=== PATIENT | female | born 1940 | race Caucasian/White ===

== ENCOUNTER 2022-06-20 21:35 | Outpatient (CLI) | payer MEDICARE, BC, SELFPAY | END 2022-06-20 21:36 | disposition home or self-care (01) | LOC: AMB 06-22 08:07 | PROVIDERS: PCP Family Medicine; Visit Provider Family Medicine | DX: R53.1 Weakness (principal); R19.7 Diarrhea, unspecified | CPT/HCPCS: A0425; A0427 ==

== ENCOUNTER 2022-06-20 22:18 | Emergency (ER) | payer MEDICARE, BC, SELFPAY ==
[2022-06-20 22:24] VITALS: BP 146/89; PULSE 91; RESP 20; TEMP 36.9; O2SAT 97; BMI 26.6
--- NOTE | 2022-06-20 23:05 | ED.GENADULT ---
HPI - General Adult General Time Seen by Provider: 23:05 Date Seen: 06/20/22 Chief complaint: Nausea/Vomiting Stated complaint: Nausea/vomiting's Time Seen by Provider: 06/20/22 22:54 Source: patient and family Mode of arrival: ambulatory Limitations: no limitations History of Present Illness HPI narrative: 82-year-old female who comes in today with her son for weakness. Patient notes tonight she tried to get out of her chair, legs felt weak and gave out on her. She was unable to get up off the floor. She had some vomiting and diarrhea this evening as well. [place] fine during the course the day, went to the grocery store and also cutter shingles shot. She denies headache or head injury, no chest pain or shortness of breath, no abdominal pain, no urinary symptoms. No numbness or tingling in the arms or legs. Related Data Home Medications Medication Instructions Recorded Confirmed clopidogrel 75 mg tablet mg 06/20/22 glipizide 5 mg tablet mg 06/20/22 metformin 1,000 mg tablet 500 mg PO BID 06/20/22 06/20/22 metoprolol succinate 25 mg mg PO 06/20/22 tablet,extended release 24 hr Allergies Allergy/AdvReac Type Severity Reaction Status Date / Time No Known Drug Allergies Allergy Verified 06/21/22 02:25 Review of Systems Status of ROS: Reports: 10 or more systems reviewed and unremarkable except as noted in History and below PFS PFS Social History Smoking Status: Former smoker How often do you have a drink containing alcohol: never AUDIT-C Alcohol total score: 0 Non-prescribed substance use: denies use Exam Narrative: Exam Narrative: General: Well-developed and well-nourished, no acute distress Head: Atraumatic and normocephalic Eyes: Pupils are equal reactive, extraocular motions intact, conjunctiva clear ENT: External nose and ears are normal, posterior pharynx without erythema or exudate Neck: No midline cervical tenderness, full spontaneous range of motion the neck, trachea midline, no adenopathy Heart: Regular rate and rhythm, for 6 systolic murmur Lungs: Clear to auscultation bilaterally without wheezes or crackles Abdomen: Soft, nontender, nondistended with active bowel sounds Musculoskeletal: No tenderness, deformity, or edema Neurologic: Awake, alert, and oriented x3, no gross focal neurologic deficits, cranial nerves intact as tested Psych: Mood and affect are appropriate Skin: No rashes Const: Vital Signs, click to edit/add: Vital Signs - 24 hr 06/20/22 22:24 06/20/22 23:31 06/21/22 01:20 Temperature 98.4 F Pulse Rate [Bilate ral] 91 82 Respiratory Rate 20 20 20 Blood Pressure [Ri ght Upper Arm] 146/89 H 142/58 H Pulse Oximetry 97 97 96 Oxygen Delivery Me thod Room Air Room Air Room Air Course Course Hospital Course: Patient seen and examined, prior records are reviewed. Patient presents today with generalized weakness associated with vomiting and diarrhea. On exam here, vital is stable. No abdominal tenderness and patient denies abdominal pain. No hypotension or tachycardia, patient denies blood in the stools or emesis. Labs ordered along with fluid bolus. If labs are reassuring and patient is able to tolerate oral intake, can be discharged Reevaluation(s) Reevaluation #1: Labs independently interpreted by me demonstrate leukocytosis with mild anemia. CT of the abdomen and pelvis ordered due to leukocytosis, diarrhea, vomiting. Time: 23:41 Reevaluation #2: Labs independently interpreted by me demonstrate normal basic panel other than hyperglycemia, urinalysis with some red cells and some white cells, contaminated with moderate epithelial cells. At this point will defer treatment until cultures are done. Time: 01:11 Reevaluation #3: CT scan independently interpreted by me does not demonstrate any acute findings. Patient is requesting to be admitted to the hospital as her carpet at home is a mess because of her gastrointestinal illness. We discussed her normal laboratory findings of an elevated white blood cell count, stable vital signs. Patient has been up to the bathroom multiple times and is steady ambulating. No indications for admission at this time and did discuss this with the patient, she is agreeable to go home with her son. Time: 02:52 Vital Signs Vital signs: Initial Vital Signs Temperature 98.4 F 06/20/22 22:24 Temperature Source Oral 06/20/22 22:24 Pulse Rate 91 06/20/22 22:24 Pulse Rhythm 06/20/22 22:24 Respiratory Rate 20 06/20/22 22:24 Blood Pressure 146/89 H 06/20/22 22:24 Blood Pressure Mean 108 06/20/22 22:24 Pulse Oximetry 97 06/20/22 22:24 Oxygen Delivery Method 06/20/22 22:24 Vital Signs Temperature 98.4 F 06/20/22 22:24 Pulse Rate 91 06/20/22 22:24 Respiratory Rate 20 06/20/22 22:24 Blood Pressure 146/89 H 06/20/22 22:24 Pulse Oximetry 97 06/20/22 22:24 Oxygen Delivery Method 06/20/22 22:24 Temperature 98.4 F 06/20/22 22:24 Pulse Rate 82 06/21/22 01:20 Respiratory Rate 20 06/21/22 01:20 Blood Pressure 142/58 H 06/21/22 01:20 Pulse Oximetry 96 06/21/22 01:20 Oxygen Delivery Method 06/21/22 01:20 Medical Decision Making Medical Records Medical records reviewed: Yes I reviewed the patient's medical records Lab Data Lab results reviewed: Yes I reviewed the patient's lab results Labs: Lab Results 06/20/22 06/20/22 06/20/22 Range/Units 23:11 23:20 23:20 WBC 16.21 H (4.50-11.00) K/uL RBC 2.77 L (4.00-5.20) m/uL Hgb 10.9 L (12.0-16.0) gm/dL Hct 31.8 L (33.0-51.0) % MCV 115 H (80-100) fL MCH 39 H (26-34) pg MCHC 34 (32-36) gm/dL RDW Coeff of Bossman 14.5 (11.5-15.5) % Plt Count 188 (140-440) K/uL Neut % (Auto) 90.5 H (42.0-72.0) % Lymph % (Auto) 3.5 L (20-44) % [place] % (Auto) 5.1 (0.0-11.0) % Eos % (Auto) 0.1 (0.0-7.0) % Baso % (Auto) 0.2 (0.0-3.0) % Neut # (Auto) 14.70 H (1.7-7.0) K/uL Lymph # (Auto) 0.60 L (0.90-2.90) K/uL [place] # (Auto) 0.80 (0.00-0.90) K/UL Eos # (Auto) 0.00 (0.00-0.50) K/uL Baso # (Auto) 0.00 (0.00-0.30) K/uL Sodium Cancelled Potassium Cancelled Chloride Cancelled Carbon Dioxide Cancelled BUN Cancelled Creatinine Cancelled Estimated Creat Clear Cancelled Estimated GFR Cancelled Glucose Cancelled Calcium Cancelled Magnesium Cancelled Urine Color Yellow (Yellow) Urine Appearance Slightly Cloudy A (Clear) Urine pH 5.0 (5.0-8.5) Ur Specific [place] 1.020 (1.000-1.030) Urine Protein 2+ A (Negative) Urine Glucose (UA) Trace A (Negative) Urine Ketones 1+ A (Negative) Urine Blood 2+ A (Negative) Urine Nitrite Negative (Negative) Urine Bilirubin Negative (Negative) Urine Urobilinogen 0.2 (0.2-1.0) Ur Leukocyte Esterase 1+ A (Negative) Urine RBC 25-50 A (0-2) Urine WBC 10-25 A (0-5) Ur Squamous Epith Cells Moderate A (None-Few) Urine Bacteria Many A (None) 06/21/22 Range/Units 00:18 WBC (4.50-11.00) K/uL RBC (4.00-5.20) m/uL Hgb (12.0-16.0) gm/dL Hct (33.0-51.0) % MCV (80-100) fL MCH (26-34) pg MCHC (32-36) gm/dL RDW Coeff of Bossman (11.5-15.5) % Plt Count (140-440) K/uL Neut % (Auto) (42.0-72.0) % Lymph % (Auto) (20-44) % [place] % (Auto) (0.0-11.0) % Eos % (Auto) (0.0-7.0) % Baso % (Auto) (0.0-3.0) % Neut # (Auto) (1.7-7.0) K/uL Lymph # (Auto) (0.90-2.90) K/uL [place] # (Auto) (0.00-0.90) K/UL Eos # (Auto) (0.00-0.50) K/uL Baso # (Auto) (0.00-0.30) K/uL Sodium 136 Potassium 4.0 Chloride 103 Carbon Dioxide 23 BUN 22 Creatinine 1.1 Estimated Creat Clear 32.62 Estimated GFR 50 Glucose 208 H Calcium 9.2 Magnesium 1.6 Urine Color (Yellow) Urine Appearance (Clear) Urine pH (5.0-8.5) Ur Specific [place] (1.000-1.030) Urine Protein (Negative) Urine Glucose (UA) (Negative) Urine Ketones (Negative) Urine Blood (Negative) Urine Nitrite (Negative) Urine Bilirubin (Negative) Urine Urobilinogen (0.2-1.0) Ur Leukocyte Esterase (Negative) Urine RBC (0-2) Urine WBC (0-5) Ur Squamous Epith Cells (None-Few) Urine Bacteria (None) Discharge Plan Discharge Clinical Impression: Acute cystitis, Gastroenteritis Patient Disposition: Home w/ Parent or Adult Condition: Improved Instructions: Urinary Tract Infection in Women (DC), Acute Nausea and Vomiting (ED), Acute Diarrhea (ED) Additional Instructions: Start antibiotics this evening. Take Zofran as needed for nausea vomiting. Start with a liquid diet today and advance as tolerated Activity Level: Activity as Tolerated Discharge Diet: Full Liquid Prescriptions: No Action clopidogrel 75 mg tablet metoprolol succinate 25 mg tablet extended release 24 hr PO glipizide 5 mg tablet metformin 1,000 mg tablet 500 mg PO BID Follow Up/Referrals: Radha Calderon DO [Primary Care Provider] - Stand Alone Forms: [employer] Info Instructions
[2022-06-20] MEDS: 0.9 % SODIUM CHLORIDE 500 ML 500 ML IV (23:17)
[2022-06-20 23:31] VITALS: RESP 20; O2SAT 97
[2022-06-20 23:31] LABS: Basophils Percent Auto 0.2 % (0.0-3.0); Eosinophils Percent Auto 0.1 % (0.0-7.0); Hematocrit 31.8 % (33.0-51.0); Hemoglobin* 10.9 gm/dL (12.0-16.0); Immature Granulocytes Pct Auto 0.6 %; Lymphocytes Percent Auto 3.5 % (20-44); Mean Corpuscular HGB Conc 34 gm/dL (32-36); Mean Corpuscular Hemoglobin 39 pg (26-34); Mean Corpuscular Volume 115 fL (80-100); Monocytes Percent Auto 5.1 % (0.0-11.0); Neutrophils Percent Auto 90.5 % (42.0-72.0); Platelet Count* 188 K/uL (140-440); RDW Coefficient of Variation % 14.5 % (11.5-15.5); Red Blood Count 2.77 m/uL (4.00-5.20); White Blood Count* 16.21 K/uL (4.50-11.00)
[2022-06-20 23:33] LABS: Slide Review Reflex No
--- NOTE | 2022-06-20 23:41 | CRLHL7_ITS ---
For Patients: As a result of the Century Cures Act, medical imaging exams and procedure reports are released immediately into your electronic medical record. You may view this report before your referring provider. If you have questions, please contact your health care provider. INDICATION: Diarrhea, abdominal pain, leukocytosis TECHNIQUE: CT Abdomen and pelvis with i.v. contrast. Coronal and sagittal reformats were obtained. CONTRAST: 74 mL Isovue 370 COMPARISON: None FINDINGS: Lower chest: Unremarkable. Liver: Unremarkable. Spleen: Unremarkable. Pancreas: Unremarkable. Gallbladder: Unremarkable. Kidney: Unremarkable. No kidney or ureteral stones or obstruction seen. Adrenal: Unremarkable. Bowel: The stomach is decompressed and difficult to evaluate. The appendix is not identified. Vascular: Severe diffuse atherosclerotic calcifications of the abdominal aorta and its tributaries are present. Lymph: Unremarkable. Peritoneum: Unremarkable. No pneumoperitoneum is seen. No significant ascites is noted. Pelvis: The patient is status post hysterectomy. Moderate bladder distention is noted. Soft tissue: Unremarkable. Bone: Moderate levoscoliosis is noted with associated facet arthritis and degenerative disc disease. IMPRESSION: 1. No CT correlate for the patient`s symptoms seen. Dictated by Zak Hitchcock MD @ 06/21/2022 3:00:51 AM Please note that all CT scans at this facility use dose modulation, iterative reconstruction, and/or weight-based dosing when appropriate to reduce radiation dose to as low as reasonably achievable. Dictated by: Zak Hitchcock MD @ 06/21/2022 03:00:56 (Electronically Signed)
[2022-06-20 23:45] LABS: Appearance Urine Slightly Cloudy (Clear); Bilirubin Urine Negative (Negative); Blood Urine 2+ (Negative); Color Urine Yellow (Yellow); Glucose Urine Trace (Negative); Ketones Urine 1+ (Negative); Leukocyte Esterase Urine 1+ (Negative); Nitrite Urine Negative (Negative); Protein Urine 2+ (Negative); Urobilinogen Urine 0.2 (0.2-1.0)
[2022-06-20 23:59] LABS: RBC Urine 25-50 (0-2)
[2022-06-21] LABS: Bacteria Urine Many; Squamous Epithelial Cell Urine Moderate (None-Few)
[2022-06-21 00:56] LABS: Chloride* 103 mmol/L (96-114)
[2022-06-21 00:57] LABS: Sodium* 136 mmol/L (135-149)
[2022-06-21 00:59] LABS: Creatinine* 1.1 mg/dL (0.5-1.5); Est. Creatinine Clearance* 32.62; Estimated Glomerular Filt Rate 50 ml/min
[2022-06-21 01:00] LABS: Blood Urea Nitrogen* 22 mg/dL (7-30); Calcium* 9.2 mg/dL (8.4-10.6); Carbon Dioxide* 23 mmol/L (20-32); Glucose* 208 mg/dL (60-115); Magnesium* 1.6 mg/dL (1.5-2.6)
[2022-06-21 01:20] VITALS: BP 142/58; PULSE 82; RESP 20; O2SAT 96
[2022-06-21] MEDS: cefTRIAXone 1 GM in 0.9 % SODIUM CHLORIDE Mini-bag 100 ML IVPB (03:37)
--- NOTE | 2022-06-21 04:00 | ED.NURSE ---
pt used commode in room. no reports of being dizzy. pt helped to and from bed with little help.
[2022-06-21 04:42] VITALS: BP 147/60; PULSE 84; RESP 18; O2SAT 96
--- NOTE | 2022-06-21 04:43 | ED.NURSE ---
pt given DC instructions, IVs removed, caths intact. Son with pt to help with instymeds.
== END 2022-06-21 04:44 | disposition home or self-care (01) ==
PROVIDERS: Emergency Provider Family Medicine; PCP Family Medicine
DX: N30.00 Acute cystitis without hematuria (principal); K52.9 Noninfective gastroenteritis and colitis, unspecified
CPT/HCPCS: 36415; 74177; 80048; 81001; 83735; 85025; 87086; 87186; 96365; 99284; J0696; J7120; Q9967

== ENCOUNTER 2022-07-09 03:39 | Outpatient (CLI) | payer MEDICARE, BC, SELFPAY | END 2022-07-09 03:40 | disposition home or self-care (01) | LOC: AMB 07-13 10:14 | PROVIDERS: PCP Family Medicine; Visit Provider Family Medicine | DX: R53.1 Weakness (principal) | CPT/HCPCS: A0998 ==

== ENCOUNTER 2022-09-02 16:04 | Outpatient (CLI) | payer MEDICARE, BC, SELFPAY | END 2022-09-02 16:05 | disposition home or self-care (01) | PROVIDERS: PCP Family Medicine; Visit Provider Family Medicine | DX: Z00.00 Encounter for general adult medical examination without abnormal findings (principal); I10 Essential (primary) hypertension; E78.5 Hyperlipidemia, unspecified; I25.10 Atherosclerotic heart disease of native coronary artery without angina pectoris; E11.40 Type 2 diabetes mellitus with diabetic neuropathy, unspecified; Z13.21 Encounter for screening for nutritional disorder; I73.9 Peripheral vascular disease, unspecified | CPT/HCPCS: 80053; 80061; 82043; 82570; 82607 ==

== ENCOUNTER 2023-01-19 15:53 | Outpatient (CLI) | payer MEDICARE, BC, SELFPAY ==
--- NOTE | 2023-01-19 16:00 | CRLHL7_ITS ---
For Patients: As a result of the Century Cures Act, medical imaging exams and procedure reports are released immediately into your electronic medical record. You may view this report before your referring provider. If you have questions, please contact your health care provider. INDICATION: left leg pain/swelling. f/u possible chronic clot distal FV COMPARISON: 09/21/2022 TECHNIQUE: A compression venous ultrasound exam was performed of the left lower extremity using jimenez-scale imaging, color Doppler and spectral Doppler analysis. FINDINGS: Sonographic imaging of the left lower extremity demonstrates normal compressibility and color Doppler venous blood flow within the common femoral vein and deep femoral vein. Within the thigh, the femoral vein is patent and compressible. At a lower level, the popliteal and posterior tibial veins also show normal compressibility and color Doppler venous blood flow. Atherosclerotic disease is present. IMPRESSION: No evidence of deep vein thrombosis within the left lower extremity. Interval clearing of nonocclusive thrombus from the distal femoral vein compared to the prior study. Dictated by Nestor Reyna MD @ 01/20/2023 9:23:38 AM (Electronically Signed)
--- OUTSIDE RECORDS SUMMARY | 2023-01-19 16:01 | XMS_ITS | Continuity of Care Document ---
Author Name Unknown Organization [facility] Address [address] [place] [address] Phone Care Team Providers Care Blanket Winder Helper Name Role Phone Essie LARIOS MD, Diogenes lima Advance Directives Directive Yes / No Effective Date File Name No Information Encounters Encounter Description Practice Location Reason(s) For Visit Diagnoses Date Provider Providers Copied on Encounter Z [facility], [address], [place], [address], [place] tel:[phone] [facility] No Information Jul-2 7200 8 Essie Shetty. [facility], [address] [place] [address], [id number], [place]. tel:[phone] Family History Family Member Type Diagnosis Age At Onset No Information Payers Payer name Insurance type Covered constitution party ID Authoriza tion(s) No Information Social History Type Description Quantity Date Captured Comments Sex Female Smoking Status No Information Chief Complaint And Reason For Visit No Information Reason For Referral Reason For Referral No Information History Of Present Illness Encounter Date Complaint History Of Prese nt Illness No Information Functional Status Date Functional Assessmen t No Information Instructions Date Instruction Additional Infor mation No Information Assessments Type Assessment Date No Information Patient Care Teams Name Effective Dates (start - stop) Status Members No Information
== END 2023-01-19 15:54 | disposition home or self-care (01) ==
LOC: US 15:59
PROVIDERS: PCP Internal Medicine; Visit Provider Internal Medicine
DX: R22.42 Localized swelling, mass and lump, left lower limb (principal); R60.9 Edema, unspecified
CPT/HCPCS: 93971

== ENCOUNTER 2023-03-14 07:15 | Outpatient (CLI) | payer MEDICARE, BC, SELFPAY ==
--- OUTSIDE RECORDS SUMMARY | 2023-03-18 17:28 | XMS_ITS | Continuity of Care Document ---
Author Name Unknown Organization Z [facility] Address [address] [place] [address] Phone Care Team Providers Care Director Law Enforcement Name Role Phone Essie LARIOS MD, Diogenes lima Advance Directives Directive Yes / No Effective Date File Name No Information Encounters Encounter Description Practice Location Reason(s) For Visit Diagnoses Date Provider Providers Copied on Encounter Z [facility], [address], [place], [address], [place] tel:[phone] [facility] No Information Jul-2 7200 8 Essie Shetty. [facility], [address] [place] [address], [id number], [place]. tel:[phone] Family History Family Member Type Diagnosis Age At Onset No Information Payers Payer name Insurance type Covered green party ID Authoriza tion(s) No Information Social [...]
== END 2023-03-14 07:16 | disposition home or self-care (01) ==
LOC: AMB 03-18 17:26
PROVIDERS: PCP Internal Medicine; Visit Provider Family Medicine
DX: R53.1 Weakness (principal)
CPT/HCPCS: A0998

== ENCOUNTER 2023-05-12 13:38 | Outpatient (CLI) | payer MEDICARE, BC, SELFPAY ==
--- OUTSIDE RECORDS SUMMARY | 2023-05-18 10:18 | XMS_ITS | Continuity of Care Document ---
Author Name Unknown Organization Z [facility] Address [address] [place] [address] Phone Care Team Providers Care Brass Chaser Name Role Phone Essie LARIOS MD, Diogenes lima Advance Directives Directive Yes / No Effective Date File Name No Information Encounters Encounter Description Practice Location Reason(s) For Visit Diagnoses Date Provider Providers Copied on Encounter Z [facility], [address], [place], [address], [place] tel:[phone] [facility] No Information Jul-2 7200 8 Essie Shetty. [facility], [address] [place] [address], [id number], [place]. tel:[phone] Family History Family Member Type Diagnosis Age [...]
--- OUTSIDE RECORDS SUMMARY | 2023-05-18 10:18 | XMS_ITS | Clinical Summary ---
Author Name Unknown Organization [facility] Address [place], [place] [address] Care Team Providers Care Solderer Assembly Repair Name Role Phone Radha Calderon DO Primary Care Provider [phone] Allergies Active Allergy Reactions Criticality Noted Date Comments Amoxicillin-Pot Clavulanate Nausea And Vomiting,Intoleranc e-Can't Take 01/04/2007 Beta-Blockers (Beta-Adrenergic Blocking Agts) 08/13/2008 Vivid Dreams on atenolol, metoprolol Codeine 01/04/2007 Cortisone Other - Describe In Comment Field 01/04/2007 uncertain Propoxyphene-Acetaminop hen Intolerance-Can't Take 01/04/2007 Erythromycin With Ethanol 01/04/2007 Atorvastatin Intolerance-Can't Take 01/04/2007 Mercury (Elemental) 01/04/2007 Sulfamethoxazole-Trimet hoprim Itching Medium 07/15/2018 Medications Medication Sig Dispensed Refills Start Date End Date Status lancets (MICROLET LANCET)Indications:d iabetes mellitus Dispense items covered by patients insurance. Test 2 times per day. Indications: Diabetes Mellitus 200 Each 3 05/12/2016 Active blood-glucose meterIndications:Tiana betes mellitus type 2, uncontrolled, without complications Dispense meter, test strips, lancets covered by pt ins. 1 Device 0 05/12/2016 Active aspirin (ECOTRIN) 81 mg enteric coated tabletIndications:Co ronary artery disease, angina presence unspecified, unspecified vessel or lesion type, unspecified whether [place] or transplanted heart Take 1 tablet by mouth once daily with a meal. 0 04/13/2017 Active diabetic supplies, miscellan.Indication s:Diabetes mellitus without complication (HC) Dispense glucose meter, test strips and lancets covered by patient insurance. Test 3 times per day. 1 Kit 0 04/23/2017 Active blood sugar diagnostic (BLOOD GLUCOSE TEST) stripIndications:Tiana coburn mellitus without complication (HC) Dispense item covered by pt ins. E11.65 NIDDM type II, uncontrolled - Test 3 times/day, Reason: Hypoglycemia. Will call for refill 1 box 04/23/2017 Active acetaminophen (TYLENOL EXTRA STRGTH) 500 mg tablet Take 500-1,000 mg by mouth every 6 hours if needed. 0 Active CLEARLAX 17 gram/dose powder DISSOLVE 17 GMS IN WATER AND TAKE BY MOUTH EVERY OTHER DAY 99 06/28/2018 Active Diabetic ShoeIndications:Type 2 diabetes mellitus without complication, without long-term current use of insulin (HC),PAD (peripheral artery disease) (HC) As directed. 2 Each 0 08/26/2020 Active oxybutynin (DITROPAN) 5 mg tabletIndications:Ov eractive bladder Take 1 Tablet (5 mg) by mouth 2 times daily. 180 Tablet 3 08/28/2020 Active Blood Pressure Monitor KitIndications:Essen tial hypertension As directed. 1 Each 0 12/29/2021 Active transmitter for continuous blood glucose monitor (CGM)Indications:Typ e 2 diabetes mellitus without complication, without long-term current use of insulin (HC) Change every 90 days 1 Each 0 12/29/2021 Active Dexcom G6 Sensor for continuous blood glucose monitor (CGM)Indications:Typ e 2 diabetes mellitus without complication, without long-term current use of insulin (HC) Change sensor every 10 days 9 Each 3 12/29/2021 Active Dexcom G6 Web Site Manager for continuous blood glucose monitor (CGM)Indications:Typ e 2 diabetes mellitus without complication, without long-term current use of insulin (HC) To be used to read blood sugars follow rope maker directions. 1 Each 0 12/29/2021 Active torsemide (DEMADEX) 10 mg tabletIndications:PA D (peripheral artery disease) (HC),S/P CABG x 2 TAKE ONE-HALF TABLET (5MG) BY MOUTH ONCE DAILY 45 Tablet 1 07/03/2022 Active metFORMIN (GLUCOPHAGE) 1,000 mg tabletIndications:Ty pe 2 diabetes mellitus without complication, without long-term current use of insulin (HC) Take 1 Tablet (1,000 mg) by mouth two times daily with meals. 180 Tablet 4 07/03/2022 Active metoprolol succinate (TOPROL XL) 25 mg Sustained-Release tabletIndications:Es sential hypertension Take 2 Tablets (50 mg) by mouth once daily. 90 Tablet 4 07/03/2022 Active glipiZIDE (GLUCOTROL) 5 mg tabletIndications:Ty pe 2 diabetes mellitus without complication, without long-term current use of insulin (HC) Take 1 Tablet (5 mg) by mouth two times daily before meals. 180 Tablet 1 07/03/2022 Active lisinopriL (PRINIVIL; ZESTRIL) 20 mg tabletIndications:Ty pe 2 diabetes mellitus without complication, without long-term current use of insulin (HC),Essential hypertension Take 1 Tablet (20 mg) by mouth once daily. 90 Tablet 4 07/03/2022 Active clopidogreL (PLAVIX) 75 mg tabletIndications:PA D (peripheral artery disease) (HC) TAKE 1 TABLET BY MOUTH EVERY DAY IN THE MORNING. 90 Tablet 4 07/03/2022 Active lovastatin (MEVACOR) 20 mg tabletIndications:Ot her hyperlipidemia Take 1 Tablet (20 mg) by mouth two times daily. 180 Tablet 0 07/03/2022 Active estradioL (ESTRACE) 0.01% (0.1 mg/g) vaginal creamIndications:Pos t-menopausal atrophic vaginitis Insert 1 g into the vagina once weekly. Can also use a small amount on finger to apply to outer tissues and opening nightly if not able to insert applicator. 42.5 g 3 07/03/2022 Active Active Problems Problem Noted Date Diagnosed Date Type 2 diabetes mellitus with diabetic neuropath y 04/03/2021 Stenosis of right carotid artery 05/25/2018 Overview: Overview: Added automatically from request for surgery [id number] Edema of lower extremity 03/11/2018 Arteriosclerosis of coronary artery 03/11/2018 Atherosclerosis of arteries of extremities 03/11 Type 2 diabetes mellitus wit hout complication, without long-term current use of insulin 06/09/2017 S/P CABG x 2 04/13/2017 Urinary frequency 10/21/2016 Incomplete bladder emptying 07/22/2016 Chronic venous insufficiency 04/16/2011 DJD (degenerative joint disease) 04/16/2011 Unspecified urinary incontinence 04/16/2011 PAD (peripheral artery disease) 03/16/2011 CAD (coronary artery disease) 03/16/2011 Unspecified essential hypertension 01/04/2007 Other and unspecified hyperlipidemia 01/04/2007 Resolved Problems Problem Noted Date Diagnosed Date Resolved Date Chest pain 04/13/2017 04/13/2017 Obesity, unspecified 10/15/2011 017 Tobacco use disorder 01/04/2007 012 DIABETES 04/03/2002 06/09/2017 Immunizations Name Administration Dates Next Due Amb Influenza, Inact (High-d ose) (Flu Clinic Only) 03/20/2014 COVID-19 vaccine (Moderna 100mcg/0.5mL) PF, MDV 07/19/2020,06/21/2020 COVID-19 vaccine (Moderna Jose leigha 50mcg/0.25mL) PF, MDV 03/25/2021 Influenza Virus, Unspecified 02/10/2017 Influenza, High-dose Inactivated 019,02/15/2018,02/13/2016,2014,03/20/2014 Influenza, High-dose Quadriv alent Inactivated 01/27/2022 Influenza, IIV3 (Age 6-35 mos) 02/25/2011,2009,03/14/2009 Influenza, IIV3 (Age >=3 years) 01/25/2013 Influenza, IIV4 03/09/2021,01/19/2020 Influenza, Inactivated IIV3 (Age 65+ Years) Preserv Free 02/04/2017 Td, Preservative Free (age > = 7 Years) 01/24/2008 Zoster (Shingrix-RZV, recombinant) 06/20/2022, Zoster (Zostavax-ZVL, live) 03/14/2016 Family History Medical History Relation Name Comments Cancer Brother 1 skin Hypertension Brother 2 Hypertension Father Hyperlipidemia Mother Hypertension Mother Cancer Other 1 half brother wi th bladder, liver and brain cancer Heart Disease Other 2 nephew, lilliam Olvera, age 64 Cancer Sister 2 skin Cancer-breast Sister 2 x2 Hypertension Sister 3 Hypertension Son Relation Name Status Comments Brother 1 Brother 2 Father Mother Other 1 Other 2 Sister 1 (Age 87) strokes Sister 2 Sister 3 Son Social History Tobacco Use Types Packs/Day Years Used Date Smoking Tobacco: Former Cigarettes 0.5 30 0 05/03/1979 - 05/03/2009 Smokeless Tobacco: Never Tobacco Cessation:Counseling Given: Yes Comments: Alcohol Use Standard Drinks/Week Comments No 0 (1 standard drink = 0.6 oz pur e alcohol) PHQ-2 Answer Date Recorded PHQ-2 TOTAL SCORE 0 07/03/2022 Social Connections Answer Date Recorded Frequency of Communication with Friends and Fami ly Not on file 09/16/2022 Financial Resource Strain Answer Date R ecorded Difficulty of Paying Living Expenses 3 09/12/2021 Difficulty of Paying Living Expenses Not on file 09/12/2021 Food Insecurity Answer Date Recorded Worried About Running Out of Food in the Last Ye ar 1 09/12/2021 Transportation Needs Answer Date Record ed Lack of Transportation (Medical) 2 09/12/2021 Housing Stability Answer Date Recorded Unable to Pay for Housing in the Last Year 1 09/12/2021 Sex and Gender Information Value Date Recorded Sex Assigned at Not on file Gender Identity Not on file Sexual Orientation Not on file Obstetrics History Para Term AB IAB SAB Ectopic Multiple Livin g Live Births 3 3 3 3 Date Outcome GA Total Labor Labor/2nd/3rd Weight Sex Delivery Anes PTL Paulina A1 A5 Name Cl in Term Term Term Last Filed Vital Signs Vital Sign Reading Time Taken Comments Blood Pressure 147/73 07/03/2022 1:02 PM SEQUINS SPOOLER Pulse 71 07/03/2022 1:02 PM SEQUINS SPOOLER Temperature 37.1 ??C (98.7 ??F) 12/27/2017 7:50 AM CD T Respiratory Rate - - Oxygen Saturation 99% 07/03/2022 1:02 PM SEQUINS SPOOLER Inhaled Oxygen Concentration - - Weight 68.7 kg (151 lb 6.4 oz) 07/03/2022 1:02 P M SEQUINS SPOOLER Height 156.9 cm (5' 1.77) 07/03/2022 1:02 PM CS T Body Mass Index 27.9 07/03/2022 1:02 PM SEQUINS SPOOLER Plan of Treatment Health Maintenance Due Date Last Done Comments Pneumococcal series for age 65+ (1 of 2 - PCV) 01/11/1946 Tdap 01/11/1951 Tetanus booster 01/23/2018 01/24/2008 COVID-19 vaccine series ( season) 2023 01/27/2022, 03/25/2021, 07/19/2020, Additional history exists Influenza for age 65+ 01/01/2023 01/27/2022 , 03/09/2021, 01/19/2020, Additional history exists Medicare Wellness for age 65+ 07/03/2023 07/03/2022 BMI (ht and wt on same day) for age 18+ 07/04/2023 07/03/2022, 10/10/2018, 03/04/2018, Additional history exists Depression screening for age 12+ 07/04/2023 07/03/2022, 07/03/2022, 04/03/2021, Additional history exists DEXA/DXA scan for age 65+ Completed 06/16/2011 Zoster (shingles) series for age 50+ Completed 06/20/2022, 03/04/2021, 03/14/2016 Care Teams Solderer Assembly Repair Relationship Specialty Start Date End Date Radha Calderon DO [address] [place] [address] PCP - General Family Practice 03/23/17
== END 2023-05-12 13:39 | disposition home or self-care (01) ==
LOC: NFLDREF 05-18 10:12
PROVIDERS: PCP Internal Medicine; Referring Provider Internal Medicine; Visit Provider Internal Medicine
DX: R35.0 Frequency of micturition (principal); N39.0 Urinary tract infection, site not specified
CPT/HCPCS: 87086; 87186

== ENCOUNTER 2023-06-03 11:07 | Outpatient (CLI) | payer MEDICARE, BC, SELFPAY ==
--- OUTSIDE RECORDS SUMMARY | 2023-06-04 06:07 | XMS_ITS | Clinical Summary ---
Author Name Unknown Organization [facility] Address [place], [place] [address] Care Team Providers Care Senior Copywriter Name Role Phone Radha Calderon DO Primary Care Provider [phone] Allergies Active Allergy Reactions Criticality Noted Date [...] unspecified vessel or lesion type, unspecified whether [place] or transplanted heart Take 1 tablet by [...] 9 Each 3 12/29/2021 Active Dexcom G6 [facility] Owner for continuous blood glucose monitor (CGM)Indications:Typ e 2 diabetes mellitus without complication, without long-term current use of insulin (HC) To be used to read blood sugars follow food and drug inspector directions. 1 Each 0 12/29/2021 Active torsemide [...] Overview: Added automatically from request for surgery [id number] Edema of lower extremity 03/11/2018 Arteriosclerosis of [...] Comments Blood Pressure 147/73 07/03/2022 1:02 PM CONCRETE STONE FABRICATOR Pulse 71 07/03/2022 1:02 PM CONCRETE STONE FABRICATOR Temperature 37.1 ??C (98.7 ??F) 12/27/2017 7:50 AM CD T Respiratory Rate - - Oxygen Saturation 99% 07/03/2022 1:02 PM CONCRETE STONE FABRICATOR Inhaled Oxygen Concentration - - Weight 68.7 kg (151 lb 6.4 oz) 07/03/2022 1:02 P M CONCRETE STONE FABRICATOR Height 156.9 cm (5' 1.77) 07/03/2022 1:02 PM CS T Body Mass Index 27.9 07/03/2022 1:02 PM CONCRETE STONE FABRICATOR Plan of Treatment Health Maintenance Due Date Last Done Comments Pneumococcal series for age 65+ (1 of 2 - PCV) 01/11/1946 Tdap 01/11/1951 Tetanus booster 01/23/2018 01/24/2008 COVID-19 vaccine series ( season) 2023 01/27/2022, 03/25/2021, 07/19/2020, Additional history exists Influenza for age 65+ 01/01/2023 01/27/2022 , 03/09/2021, 01/19/2020, Additional history exists BMI (ht and wt on same day) for age 18+ 07/04/2023 07/03/2022, 10/10/2018, 03/04/2018, Additional history exists Depression screening for age 12+ 07/04/2023 07/03/2022, 07/03/2022, 04/03/2021, Additional history exists Medicare Wellness for age 65+ 07/04/2023 07/03/2022 DEXA/DXA scan for age 65+ Completed 06/16/2011 Zoster (shingles) series for age 50+ Completed 06/20/2022, 03/04/2021, 03/14/2016 Care Teams Senior Copywriter Relationship Specialty Start Date End Date Radha Calderon DO [address] [place] [address] PCP - General Family Practice 03/23/17
--- OUTSIDE RECORDS SUMMARY | 2023-06-04 06:07 | XMS_ITS | Continuity of Care Document ---
Author Name Unknown Organization [facility] Address [address] [place] [address] Phone Care Team Providers Care Chief Engineer Research Name Role Phone Essie LARIOS MD, Diogenes lima Advance Directives Directive Yes / No Effective Date File Name No Information Encounters Encounter Description Practice Location Reason(s) For Visit Diagnoses Date Provider Providers Copied on Encounter [facility], [address], [place], [address], [place] tel:[phone] [facility] No Information Jul- 7200 8 Essie Shetty. [facility], [address] [place] [address], [id number], [place]. tel:[phone] Family History Family Member Type Diagnosis Age [...]
== END 2023-06-03 11:08 | disposition home or self-care (01) ==
LOC: NFLDREF 06-04 06:05
PROVIDERS: PCP Internal Medicine; Referring Provider Internal Medicine; Visit Provider Obstetrics & Gynecology
DX: R35.0 Frequency of micturition (principal)
CPT/HCPCS: 87086

== ENCOUNTER 2023-07-14 10:40 | Outpatient (CLI) | payer MEDICARE, BC, SELFPAY | END 2023-07-14 10:41 | disposition home or self-care (01) | LOC: NFLDREF 10:42 | PROVIDERS: PCP Internal Medicine; Visit Provider Internal Medicine | DX: E11.40 Type 2 diabetes mellitus with diabetic neuropathy, unspecified (principal) | CPT/HCPCS: 80053 ==

== ENCOUNTER 2024-01-31 11:20 | Outpatient (CLI) | payer MEDICARE, BC, SELFPAY ==
--- OUTSIDE RECORDS SUMMARY | 2024-01-31 11:25 | XMS_ITS | Continuity of Care Document ---
Author Organization [facility] Address [address] [place] [address] Phone Care Team Providers Care Operating Room Rn Name Role Phone Essie LARIOS MD, Diogenes Fontenot Unavai lable Advance Directives Directive Yes / No Effective Date File Name No Information Encounters Encounter Description Practice Location Reason(s) For Visit Diagnoses Date Provider Providers Copied on Encounter Z [facility] [place], [address], [place], [address], [place] tel:[phone] [facility] No Information Jul-200 8 Essie Shetty. [facility], [address] [place] [address], [id number], [place]. tel:[phone] Family History Family Member Type Diagnosis Age At Onset No Information Payers Payer name Insurance type Covered democrat ID Authoriza tion(s) No Information Social History [...]
--- OUTSIDE RECORDS SUMMARY | 2024-01-31 11:25 | XMS_ITS | Clinical Summary ---
Author Organization [facility] Address [place], [place] [address] Care Team Providers Care Bushing Press Operator Name Role Phone Genevieve Ford MD Primary Care Provider + Allergies Active Allergy Reactions Criticality Noted Date [...] lancets covered by pt ins. 1 Device 05/12/2016 Active aspirin (ECOTRIN) 81 mg enteric coated tabletIndications:Co ronary artery disease, angina presence unspecified, unspecified vessel or lesion type, unspecified whether [place] or transplanted heart Take 1 tablet by mouth once daily with a meal. 0 04/13/2017 Active diabetic supplies, miscellan.Indication s:Diabetes mellitus without complication (HC) Dispense glucose meter, test strips and lancets covered by patient insurance. Test 3 times per day. 1 Kit 04/23/2017 Active blood sugar diagnostic (BLOOD GLUCOSE TEST) stripIndications:Tiana coburn mellitus without complication (HC) Dispense item covered by pt ins. E11.65 NIDDM type II, uncontrolled - Test 3 times/day, Reason: Hypoglycemia. Will call for refill 1 box 04/23/2017 Active acetaminophen (TYLENOL EXTRA STRGTH) 500 mg tablet Take 500-1,000 mg by mouth every 6 hours if needed. Active CLEARLAX 17 gram/dose powder DISSOLVE 17 GMS IN WATER AND TAKE BY MOUTH EVERY OTHER DAY 99 06/28/2018 Active Diabetic ShoeIndications:Type 2 diabetes mellitus without complication, without long-term current use of insulin (HC),PAD (peripheral artery disease) (HC) As directed. 2 Each 08/26/2020 Active oxybutynin (DITROPAN) 5 mg tabletIndications:Ov eractive bladder Take 1 Tablet (5 mg) by mouth 2 times daily. 180 Tablet 3 08/28/2020 Active Blood Pressure Monitor KitIndications:Essen tial hypertension As directed. 1 Each 12/29/2021 Active transmitter for continuous blood glucose monitor (CGM)Indications:Typ e 2 diabetes mellitus without complication, without long-term current use of insulin (HC) Change every 90 days 1 Each 12/29/2021 Active Dexcom G6 Sensor for continuous blood glucose monitor (CGM)Indications:Typ e 2 diabetes mellitus without complication, without long-term current use of insulin (HC) Change sensor every 10 days 9 Each 3 12/29/2021 Active Dexcom G6 Kennel Staff Member for continuous blood glucose monitor (CGM)Indications:Typ e 2 diabetes mellitus without complication, without long-term current use of insulin (HC) To be used to read blood sugars follow research professor directions. 1 Each 12/29/2021 Active torsemide (DEMADEX) 10 mg tabletIndications:PA [...] by mouth two times daily. 180 Tablet 07/03/2022 Active estradioL (ESTRACE) 0.01% (0.1 mg/g) [...] 04/03/2021 Stenosis of right carotid artery 05/25/2018 Overview (08/26/2020): Overview: Added automatically from request for surgery [id number] Edema of lower extremity 03/11/2018 Arteriosclerosis of [...] Outcome GA Total Labor Labor/2nd/3rd Weight Sex Type Anes PTL Paulina A1 A5 Name Clin Term Term Term Last Filed Vital Signs Vital Sign Reading Time Taken Comments Blood Pressure 147/73 07/03/2022 1:02 PM BUDGET COORDINATOR Pulse 71 07/03/2022 1:02 PM BUDGET COORDINATOR Temperature 37.1 ??C (98.7 ??F) 12/27/2017 7:50 AM CD T Respiratory Rate - - Oxygen Saturation 99% 07/03/2022 1:02 PM BUDGET COORDINATOR Inhaled Oxygen Concentration - - Weight 68.7 kg (151 lb 6.4 oz) 07/03/2022 1:02 P M BUDGET COORDINATOR Height 156.9 cm (5' 1.77) 07/03/2022 1:02 PM CS T Body Mass Index 27.9 07/03/2022 1:02 PM BUDGET COORDINATOR Plan of Treatment Health Maintenance Due Date Last Done Comments Pneumococcal series for age 65+ (1 of 2 - PCV) 01/11/1946 Tdap 01/11/1951 RSV vaccine for adults or (1 - 1-dose 75+ series) 01/11/2015 Tetanus booster 01/23/2018 01/24/2008 BMI (ht and wt on same day) for age 18+ 07/04/2023 07/03/2022, 10/10/2018, 03/04/2018, Additional history exists Depression screening for age 12+ 07/04/2023 07/03/2022, 07/03/2022, 04/03/2021, Additional history exists Medicare Wellness for age 65+ 07/04/2023 07/03/2022 COVID-19 vaccine series ( season) 2024 01/27/2022, 08/27/2021, 03/25/2021, Additional history exists Influenza for age 65+ 01/02/2024 01/27/2022 , 03/09/2021, 01/19/2020, Additional history exists DEXA/DXA scan for age 65+ Completed 06/16/2011 Zoster (shingles) series for age 50+ Completed 06/20/2022, 03/04/2021, 03/14/2016 Care Teams Bushing Press Operator Relationship Specialty Start Date End Date Genevieve Ford MD [address] [facility] [address] [place] [address] PCP - General Family Practice 10/13/23
--- NOTE | 2024-01-31 11:30 | CRLHL7_ITS ---
For Patients: As a result of the Cures Act, medical imaging exams and procedure reports are released immediately into your electronic medical record. You may view this report before your referring provider. If you have questions, please contact your health care provider. CLINICAL HISTORY: Occlusion and stenosis of unspecified carotid artery TECHNIQUE: The carotid circulations and the vertebral arteries in the neck were examined with jimenez-scale ultrasound, color-flow and Doppler spectral analysis. Degrees of stenosis were determined using SRU 2002 Consensus Panel Criteria. FINDINGS: Sonographic images demonstrate extensive calcifications at the left carotid bulb. Post CEA changes on the right. There was antegrade blood flow demonstrated within the vertebral arteries and the subclavian arteries demonstrated a normal triphasic waveform. The spectral Doppler tracings of the common carotid, internal and external carotid arteries demonstrate turbulence and spectral broadening involving the left proximal ICA. There was elevation of peak systolic blood flow within the right proximal ICA measuring 144 cm/second and within left proximal ICA measuring 146 cm/second which would indicate a hemodynamically-significant stenosis by SRU criteria. The ICA/CCA peak systolic velocity ratio measures 1.5 on the right and 2.4 on the left. IMPRESSION: 50-69 percent stenosis of the internal carotid arteries bilaterally with extensive left carotid bulb vascular calcifications noted. Dictated by Nestor Reyna MD @ 02/01/2024 5:49:21 AM (Electronically Signed)
== END 2024-01-31 11:21 | disposition home or self-care (01) ==
LOC: US 11:21
PROVIDERS: PCP Internal Medicine; Visit Provider Internal Medicine
DX: I65.23 Occlusion and stenosis of bilateral carotid arteries (principal)
CPT/HCPCS: 93880

== ENCOUNTER 2024-02-02 08:15 | Outpatient (CLI) | payer MEDICARE, BC, SELFPAY | END 2024-02-02 08:16 | disposition home or self-care (01) | LOC: NFLDREF 13:07 | PROVIDERS: PCP Internal Medicine; Referring Provider Internal Medicine; Visit Provider Internal Medicine | DX: R33.9 Retention of urine, unspecified (principal); N39.0 Urinary tract infection, site not specified | CPT/HCPCS: 87086 ==

== ENCOUNTER 2024-05-17 16:11 | Outpatient (CLI) | payer MEDICARE, BC, SELFPAY | END 2024-05-17 16:12 | disposition home or self-care (01) | LOC: NFLDREF 05-22 03:40 | PROVIDERS: PCP Internal Medicine; Referring Provider Internal Medicine; Visit Provider Internal Medicine | DX: E11.40 Type 2 diabetes mellitus with diabetic neuropathy, unspecified (principal); Z79.84 Long term (current) use of oral hypoglycemic drugs | CPT/HCPCS: 82043; 82570 ==

== ENCOUNTER 2024-08-16 14:26 | Outpatient (CLI) | payer MEDICARE, BC, SELFPAY | END 2024-08-16 14:27 | disposition home or self-care (01) | LOC: NFLDREF 08-21 13:15 | PROVIDERS: PCP Internal Medicine; Referring Provider Internal Medicine; Visit Provider Internal Medicine | DX: N39.0 Urinary tract infection, site not specified (principal) | CPT/HCPCS: 87086 ==

== ENCOUNTER 2024-08-19 08:21 | Outpatient (CLI) | payer MEDICARE, BC, SELFPAY | END 2024-08-19 08:22 | disposition home or self-care (01) | LOC: AMB 08-21 11:58 | PROVIDERS: PCP Internal Medicine; Visit Provider Family Medicine | DX: R53.1 Weakness (principal) | CPT/HCPCS: A0998 ==

== ENCOUNTER 2024-08-19 18:40 | Outpatient (CLI) | payer MEDICARE, BC, SELFPAY | END 2024-08-19 18:41 | disposition home or self-care (01) | LOC: AMB 08-21 14:48 | PROVIDERS: PCP Internal Medicine; Visit Provider Family Medicine | DX: R53.1 Weakness (principal); R29.6 Repeated falls; Z91.81 History of falling | CPT/HCPCS: A0425; A0429 ==

== ENCOUNTER 2024-08-19 19:27 | Inpatient (IN) | payer MEDICARE, BC, SELFPAY ==
[2024-08-19] VITALS (23 sets, daily range): BP systolic 121–150; BP diastolic 53–86; PULSE 64–76; RESP 12–21; TEMP 36.4; O2SAT 90–99; BMI 27.0
--- OUTSIDE RECORDS SUMMARY | 2024-08-19 19:28 | XMS_ITS ---
Author Organization [facility] Address [address] [place] [address] Care Team Providers Care License And Permit Specialist Name Role Phone Marlena Rowley Primary Care Provider Sarah Torres Unavailable [phone] Sarah Langley [phone] REASON FOR VISIT Referral Encounters Encounter Location Date Provider Diagnosis [address] [id number] 05/25/2024 Sarah Langley Plan Of Treatment No Information Progress Notes * Geeta HORNEROB:[birth year] (84 yo F)Acc No.[id number]:05/25/2024 Patient: Jose De Jesus WATERSGeeta :1940 A ge:84 Y S ex:Female Address:[facility] [address], [address] * true * Date: Generated for Printi ng/Faletig/eTransmitting on: 0 08/19/2024 07:28 PM CDT
--- OUTSIDE RECORDS SUMMARY | 2024-08-19 19:29 | XMS_ITS | Clinical Summary ---
Author Organization [facility] Address [address] [place] [id number] Care Team Providers Care Buffer Automatic Name Role Phone Genevieve Ford MD Primary [...] 01/04/2007 Sulfamethoxazole-Trimet hoprim Itching Medium 07/15/2018 Medications lancets (MICROLET LANCET)Indications :diabetes mellitus Dispense items covered by patients insurance. Test 2 times per day. Indications: Diabetes Mellitus 200 Each 3 05/12/19 17 Active blood-glucose meterIndications:D iabetes mellitus type 2, uncontrolled, without complications Dispense meter, test strips, lancets covered by pt ins. 1 Device 05/12/19 17 Active aspirin (ECOTRIN) 81 mg enteric coated tabletIndications: Coronary artery disease, angina presence unspecified, unspecified vessel or lesion type, unspecified whether [place] or transplanted heart Take 1 tablet by mouth once daily with a meal. 0 04/13/20 17 Active diabetic supplies, miscellan.Indicati ons:Diabetes mellitus without complication (HC) Dispense glucose meter, test strips and lancets covered by patient insurance. Test 3 times per day. 1 Kit 04/23/20 Active blood sugar diagnostic (BLOOD GLUCOSE TEST) stripIndications:D iabetes mellitus without complication (HC) Dispense item covered by pt ins. E11.65 NIDDM type II, uncontrolled - Test 3 times/day, Reason: Hypoglycemia. Will call for refill 1 box 04/23/20 17 Active acetaminophen (TYLENOL EXTRA STRGTH) 500 mg tablet Take 500-1,000 mg by mouth every 6 hours if needed. Active CLEARLAX 17 gram/dose powder DISSOLVE 17 GMS IN WATER AND TAKE BY MOUTH EVERY OTHER DAY 99 06/28/19 19 Active Diabetic ShoeIndications:Ty pe 2 diabetes mellitus without complication, without long-term current use of insulin (HC),PAD (peripheral artery disease) As directed. 2 Each 08/27/19 21 Active oxybutynin (DITROPAN) 5 mg tabletIndications: Overactive bladder Take 1 Tablet (5 mg) by mouth 2 times daily. 180 Tablet 3 08/29/19 21 Active Blood Pressure Monitor KitIndications:Ess ential hypertension As directed. 1 Each 12/30/19 22 Active transmitter for continuous blood glucose monitor (CGM)Indications:T ype 2 diabetes mellitus without complication, without long-term current use of insulin (HC) Change every 90 days 1 Each 12/30/19 22 Active Dexcom G6 Sensor for continuous blood glucose monitor (CGM)Indications:T ype 2 diabetes mellitus without complication, without long-term current use of insulin (HC) Change sensor every 10 days 9 Each 3 12/30/19 22 Active Dexcom G6 Inspector [employer]ings for continuous blood glucose monitor (CGM)Indications:T ype 2 diabetes mellitus without complication, without long-term current use of insulin (HC) To be used to read blood sugars follow platinum and palladium kettle tender directions. 1 Each 12/30/19 22 Active torsemide (DEMADEX) 10 mg tabletIndications: PAD (peripheral artery disease),S/P CABG x 2 TAKE ONE-HALF TABLET (5MG) BY MOUTH ONCE DAILY 45 Tablet 1 07/04/19 23 Active metFORMIN (GLUCOPHAGE) 1,000 mg tabletIndications: Type 2 diabetes mellitus without complication, without long-term current use of insulin (HC) Take 1 Tablet (1,000 mg) by mouth two times daily with meals. 180 Tablet 4 07/04/19 23 Active metoprolol succinate (TOPROL XL) 25 mg Sustained-Release tabletIndications: Essential hypertension Take 2 Tablets (50 mg) by mouth once daily. 90 Tablet 4 07/04/19 23 Active glipiZIDE (GLUCOTROL) 5 mg tabletIndications: Type 2 diabetes mellitus without complication, without long-term current use of insulin (HC) Take 1 Tablet (5 mg) by mouth two times daily before meals. 180 Tablet 1 07/04/19 23 Active lisinopriL (PRINIVIL; ZESTRIL) 20 mg tabletIndications: Type 2 diabetes mellitus without complication, without long-term current use of insulin (HC),Essential hypertension Take 1 Tablet (20 mg) by mouth once daily. 90 Tablet 4 07/04/19 23 Active clopidogreL (PLAVIX) 75 mg tabletIndications: PAD (peripheral artery disease) TAKE 1 TABLET BY MOUTH EVERY DAY IN THE MORNING. 90 Tablet 4 07/04/19 23 Active lovastatin (MEVACOR) 20 mg tabletIndications: Other hyperlipidemia Take 1 Tablet (20 mg) by mouth two times daily. 180 Tablet 07/04/19 23 Active estradioL (ESTRACE) 0.01% (0.1 mg/g) vaginal creamIndications:P ost-menopausal atrophic vaginitis Insert 1 g into the vagina once weekly. Can also use a small amount on finger to apply to outer tissues and opening nightly if not able to insert applicator. 42.5 g 3 07/04/19 Active Active Problems Problem Noted Date Diagnosed Date Type 2 diabetes mellitus with diabetic neuropath y 04/03/2021 Stenosis of right carotid artery 05/25/2018 Overview (08/26/2020): Overview: Added automatically from request for surgery [id number] Edema of lower extremity 03/11/2018 Arteriosclerosis of [...] disorder 01/04/2007 012 DIABETES 04/03/2002 06/09/2017 Immunizations Immunization Administration Dates Next Due Amb Influenza, Inact [...] Housing in the Last Year 1 09/12/2021 Comments No Sex and Gender Information Value Date Recorded Sex Assigned at Not on file Legal Sex Female 5:48 AM 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 Gender Identity Not on file Sexual Orientation Not on file Occupation Industry Job Start Date Job End Date Unemployed Not on file Not on file Not on file Obstetrics History Para Term AB IAB SAB Ectopic Multiple Livin g Live Births 3 3 3 3 Date Outcome GA Total Labor Labor/2nd/3rd Weight Sex Type Anes PTL Paulina A1 A5 Name Clin Term Term Term Last Filed Vital Signs Vital Sign Reading Time Taken Comments Blood Pressure 147/73 07/03/2022 1:02 PM 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 Pulse 71 07/03/2022 1:02 PM 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 Temperature 37.1 C (98.7 F) 12/27/2017 7:50 AM CDT Respiratory Rate - - Oxygen Saturation 99% 07/03/2022 1:02 PM 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 Inhaled Oxygen Concentration - - Weight 68.7 kg (151 lb 6.4 oz) 07/03/2022 1:02 P M 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 Height 156.9 cm (5' 1.77) 07/03/2022 1:02 PM CS T Body Mass Index 27.9 07/03/2022 1:02 PM 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 Plan of Treatment Health Maintenance Due Date Last Done Comments Tdap 01/11/1951 Pneumococcal series for age 50+ (1 of 2 - PCV) 01/11/1959 RSV vaccine for adults or (1 - [...] 01/27/2022, 08/27/2021, 03/25/2021, Additional history exists Influenza Vaccine (Season Ended) 2025 03/09/2021, 01/19/2020, 02/22/2019, Additional history exists DEXA/DXA scan for age 65+ Completed 06/16/2011 Zoster (shingles) series for age 50+ Completed 06/20/2022, 03/04/2021, 03/14/2016 Insurance MEDICARE PART B HB ONLY MEDICARE PART A HB ONLY [employer] [place] [facility] BLUE MR PB ONLY Care Teams Buffer Automatic Relationship Specialty Start Date End Date Genevieve Ford MD [address] [place] [address] PCP - General Family Practice 10/13/23
--- OUTSIDE RECORDS SUMMARY | 2024-08-19 19:29 | XMS_ITS | Patient Health Record ---
Author Organization [facility] Address [address] [place] [address] Care Team Providers Care Diploma Pharmacy Technician Name Role Phone Amrik Mendiola Primary Care Provider Unavaila ble Sarah Parks Unavailable [phone] Sarah Langley Unavailable [phone] Reason For Referral Reason 1.20.25 UTI Pt wcb to sched Diagnosis 1 Frequent UTI (N39.0) Referral Organization [facility] Referring Provider First Name Amrik Referring Provider Last Name Joallison Referred Organization [facility] Referred Provider Sarah Parks Referred Address [address],[place], [place],[address], Referred Provider Specialty Physician As sistant Referral Priority Routine Encounters Encounter Location Date Provider Diagnosis [address] [place], [place] [id number] 05/25/2024 Sarah Langley Plan Of Treatment No Information Insurance Providers Payer Name Payer Address Payer Phone Subscriber Number Group Number Insured Name Patient Relationship to Insured Coverage Start Date Coverage End Date [employer] - (Client Bill) [address] [place] [phone] [id number] Geeta Horner Self - patient is the insured
--- NOTE | 2024-08-19 19:49 | CRLHL7_ITS ---
For Patients: As a result of the Century Cures Act, medical imaging exams and procedure reports are released immediately into your electronic medical record. You may view this report before your referring provider. If you have questions, please contact your health care provider. INDICATION: Left lower extremity swelling. TECHNIQUE: Left lower extremity Doppler venous ultrasound examination was performed. Grayscale and color Doppler images were obtained. Spectral analysis was performed. COMPARISON: Left lower extremity Doppler venous ultrasound 01/19/2023. FINDINGS: RIGHT LOWER EXTREMITY: Common femoral vein: Fully compressible. No deep vein thrombus. Normal flow and response to augmentation on color Doppler imaging. LEFT LOWER EXTREMITY: Common femoral vein: Fully compressible. No deep vein thrombus. Normal flow and response to augmentation on color Doppler imaging. Superficial femoral vein: Fully compressible. No deep vein thrombus. Normal flow on color Doppler imaging. Deep femoral vein: No deep vein thrombus Popliteal vein: Fully compressible. No deep vein thrombus. Normal flow on color Doppler imaging. Lower calf: The visualized posterior tibial and peroneal veins are fully compressible. No deep vein thrombus. Normal flow and response to augmentation on color Doppler imaging. Superficial veins: The superficial veins, including the greater saphenous vein, remain patent and are fully compressible. Soft tissues: No popliteal fossa fluid collection identified. IMPRESSION: No deep vein thrombus within the left lower extremity. Dictated by Osmani Hoffmann MD @ 08/19/2024 8:57:19 PM (Electronically Signed)
--- NOTE | 2024-08-19 19:50 | ED_ITS ---
HPI - General Adult General Chief complaint: Fall/Minor Trauma Stated complaint: Fall Time Seen by Provider: 08/19/24 19:32 Source: patient and EMS Mode of arrival: EMS Limitations: no limitations History of Present Illness HPI narrative: 84-year-old female presenting today after falling in her home 2 times today. She states the last time she fell was approximately 1 year ago. She states that the 1st time she fell she got out of her wheelchair to enter her bathroom and her legs felt very weak and gave out. She was able to fall slowly onto her buttocks. Did not hit her head or lose consciousness. The 2nd time she was in her kitchen making her supper. She felt her legs getting weak and she did make it to the chair. Again fell backwards onto her buttocks and did not hit her head. She denies pain in her buttocks or her back. She denies pain in her extremities, did not fall on to 1 side or the other. She states that she generally gets around in her wheelchair but she is able to get up and use the bathroom or cook her own meals and falling when she does these things is not usual for her. She denies recent fever, chills, nausea or vomiting. She denies any diarrhea or constipation. She denies shortness of breath or chest pain. No abdominal discomfort. She denies any rashes that she is aware of. She does have chronic dysuria. She was seen on the 16 of August and diagnosed with a UTI. She was started on Bactrim and has taken 2 doses of that. She was also complaining of bilateral leg pain which has recently gotten worse, so she was started on Lyrica and took her 1st dose this morning. Otherwise, she denies any medication changes. She denies feeling dizzy or lightheaded. She denies palpitations. She denies any changes in her appetite. Related Data Previous Rx's ?Medication ?Instructions ?Recorded colchicine 0.6 mg tablet 0.6 mg PO BID #10 tabs 10/30/22 lisinopril 20 mg tablet 20 mg PO QDAY Hypertension #90 tabs 02/23/24 lovastatin 20 mg tablet 20 mg PO BID #180 tabs 02/23/24 glipizide 5 mg tablet 5 mg PO BID DM #180 tabs 02/24/24 metoprolol succinate 25 mg 50 mg (2 x 25 mg) PO DAILY 02/11/25 tablet,extended release 24 hr Hypertension #180 tabs metformin 1,000 mg tablet 1,000 mg PO BID #180 tabs 06/21/24 furosemide 20 mg tablet (Lasix) 20 mg PO QAM #30 tabs 08/02/24 pregabalin 25 mg capsule (Lyrica) 25 mg PO BID #30 caps 08/16/24 sulfamethoxazole 800 1 tab PO BID #10 tabs 08/17/24 mg-trimethoprim 160 mg tablet (Bactrim DS) Allergies Allergy/AdvReac Type Severity Reaction Status Date / Time No Known Drug Allergies Allergy Verified 08/16/24 13:53 Review of Systems Status of ROS: Reports: 10 or more systems reviewed and unremarkable except as noted in History and below PFSH [facility] Medical History Neuropathy ?G62.9 - Polyneuropathy, unspecified (ICD-10) Health care directive on file ?Z78.9 - Other specified health status (ICD-10) UTI (urinary tract infection) ?N39.0 - Urinary tract infection, site not specified (ICD-10) Carotid stenosis ?I65.29 - Occlusion and stenosis of unspecified carotid artery (ICD-10) Macrocytosis ?D75.89 - Other specified diseases of blood and blood-forming organs (ICD-10) Edema ?R60.9 - Edema, unspecified (ICD-10) Unsteadiness ?R26.81 - Unsteadiness on feet (ICD-10) Gout ?M10.9 - Gout, unspecified (ICD-10) History of non-ST elevation myocardial infarction (NSTEMI) (02/23/17) ?I25.2 - Old myocardial infarction (ICD-10) History of right breast cancer (1984) ?Z85.3 - Personal history of malignant neoplasm of breast (ICD-10) Postmenopausal atrophic vaginitis ?N95.2 - Postmenopausal atrophic vaginitis (ICD-10) Diabetic neuropathy associated with type 2 diabetes mellitus ?E11.40 - Type 2 diabetes mellitus with diabetic neuropathy, unspecified (ICD-10) Leg swelling ?M79.89 - Other specified soft tissue disorders (ICD-10) Coronary artery disease ?I25.10 - Atherosclerotic heart disease of [place] coronary artery without angina pectoris (ICD-10) Peripheral vascular disease ?I73.9 - Peripheral vascular disease, unspecified (ICD-10) Diabetes mellitus type 2 in nonobese ?E11.9 - Type 2 diabetes mellitus without complications (ICD-10) Hypertension (11/21/08) ?I10 - Essential (primary) hypertension (ICD-10) Hyperlipidemia (11/21/08) ?E78.5 - Hyperlipidemia, unspecified (ICD-10) Degenerative joint disease (DJD) of lumbar spine ?M47.816 - Spondylosis without myelopathy or radiculopathy, lumbar region (ICD-10) Scoliosis (11/21/08) ?M41.9 - Scoliosis, unspecified (ICD-10) Surgical History History of right common carotid artery stent placement ?Z98.890 - Other specified postprocedural states (ICD-10) ?Z95.828 - Presence of other vascular implants and grafts (ICD-10) History of intravascular stent placement ?Z95.828 - Presence of other vascular implants and grafts (ICD-10) History of bladder surgery (02/24/21) ?Z98.890 - Other specified postprocedural states (ICD-10) History of hysterectomy for cancer (~1989) ?Z90.710 - Acquired absence of both cervix and uterus (ICD-10) 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) ?Z95.1 - Presence of aortocoronary bypass graft (ICD-10) History of right mastectomy (1984) ?Z90.11 - Acquired absence of right breast and nipple (ICD-10) Family History Sister Myocardial infarction, Onset Age: 70 Breast cancer Skin cancer High blood pressure Sister Stroke, Onset Age: 70 Breast cancer Son Colon cancer, Onset Age: 55 High blood pressure Brother Skin cancer High blood pressure Mother High cholesterol High blood pressure Father High blood pressure Social History Narrative: , 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 Alert and oriented x3. Answers questions appropriately. Mood and affect are appropriate. Thoughts are goal oriented and rational. No tangential or magical thinking noted. Patient speaks in full sentences without needing to catch her breath. Patient is well groomed. HEENT: Normocephalic atraumatic. Pupils are equally round reactive to light. Extraocular muscles are intact. Conjunctivae are moist without any icterus noted. Moist mucous membranes. Posterior pharynx is normal. Neck is soft without any lymphadenopathy. She has no tenderness at her neck. She has full range of motion without pain. Cardiovascular: Heart is regular rate and rhythm S1 and S2 are present without any murmurs. Lungs: Clear to auscultation bilaterally no wheezes rhonchi or rales are appreciated. Patient takes deep breaths without any discomfort. Abdomen: Soft and nontender nondistended with normal bowel sounds. No guarding or rebound. Extremities: Bilateral lower extremities show that the left lower extremity is much more swollen when compared to the right, anterior lower leg is erythematous and hot to touch. The right lower extremity does not show these changes. No broken skin. Skin: Well perfused. Back: Normal appearance. No pain at the cervical, thoracic or lumbar spine. Patient moves all extremities without discomfort. She is able to sit up and lay back down without assistance. Const: Vital Signs, click to edit/add: Vital Signs - 24 hr 08/19/24 19:32 08/19/24 20:28 08/19/24 20:28 Temperature 97.5 F L Pulse Rate Pulse Rate [Pulse Oximeter] 72 Respiratory Rate 16 14 Blood Pressure Blood Pressure [Ri ght Upper Arm] 148/86 H Pulse Oximetry 99 90 Oxygen Delivery Me thod Room Air 08/19/24 20:30 08/19/24 20:32 08/19/24 20:45 Temperature Pulse Rate 70 Pulse Rate [Pulse Oximeter] Respiratory Rate 18 18 12 Blood Pressure 138/53 L Blood Pressure [Ri ght Upper Arm] Pulse Oximetry 91 Oxygen Delivery Me thod 08/19/24 20:47 08/19/24 20:48 08/19/24 21:00 Temperature Pulse Rate 66 64 65 Pulse Rate [Pulse Oximeter] Respiratory Rate 19 20 14 Blood Pressure 129/57 L Blood Pressure [Ri ght Upper Arm] Pulse Oximetry 99 97 98 Oxygen Delivery Me thod 08/19/24 21:02 08/19/24 21:18 08/19/24 21:19 Temperature Pulse Rate 66 Pulse Rate [Pulse Oximeter] Respiratory Rate 16 19 16 Blood Pressure 122/58 L 121/69 Blood Pressure [Ri ght Upper Arm] Pulse Oximetry 98 Oxygen Delivery Me thod 08/19/24 21:30 08/19/24 21:32 08/19/24 21:33 Temperature Pulse Rate 66 68 66 Pulse Rate [Pulse Oximeter] Respiratory Rate 20 12 12 Blood Pressure 124/61 Blood Pressure [Ri ght Upper Arm] Pulse Oximetry 95 95 98 Oxygen Delivery Me thod 08/19/24 21:45 08/19/24 21:47 Temperature Pulse Rate 65 66 Pulse Rate [Pulse Oximeter] Respiratory Rate 14 19 Blood Pressure 128/78 Blood Pressure [Ri ght Upper Arm] Pulse Oximetry 97 97 Oxygen Delivery Me thod Course Course ED Course: IV is established and patient is given a dose of cefazolin. CBC shows chronic anemia that is unchanged. She does not have an elevated white cell count or left shift. Lactate is elevated. 250 mL of normal saline was started over an hour. EKG, read by me, shows normal sinus rhythm with a right axis deviation, inverted T-waves in leads 2 and AVF. Pulse 69. I do not have anything to compare this to. Ultrasound of the left lower extremity was done: This was unremarkable, no evidence of DVT. UA shows leukocyte esterase and wbc's. This is not unlike most of her previous UAs. I did review her UA from 08/16 which looks much like it does today. Culture from that urine did not grow out anything. Chemistry shows slightly low sodium 132, elevated BUN and creatinine above her baseline at 32 and 2.3 respectively. LFTs are unremarkable. CRP is normal. BNP 1090. COVID and influenza negative. Vital Signs Vital signs: Initial Vital Signs Temperature 97.5 F L 08/19/24 19:32 Temperature Source Temporal Artery Scan 08/19/24 19:32 Pulse Rate 72 08/19/24 19:32 Respiratory Rate 16 08/19/24 19:32 Blood Pressure 148/86 H 08/19/24 19:32 Blood Pressure Mean 106 H 08/19/24 19:32 Blood Pressure Position Supine 08/19/24 19:32 Pulse Oximetry 99 08/19/24 19:32 Oxygen Delivery Method Room Air 08/19/24 19:32 Vital Signs Temperature 97.5 F L 08/19/24 19:32 Pulse Rate 72 08/19/24 19:32 Respiratory Rate 16 08/19/24 19:32 Blood Pressure 148/86 H 08/19/24 19:32 Pulse Oximetry 99 08/19/24 19:32 Oxygen Delivery Method Room Air 08/19/24 19:32 Temperature 97.5 F L 08/19/24 19:32 Pulse Rate 66 08/19/24 21:47 Respiratory Rate 19 08/19/24 21:47 Blood Pressure 128/78 08/19/24 21:47 Pulse Oximetry 97 08/19/24 21:47 Oxygen Delivery Method Room Air 08/19/24 19:32 Medications Administered Medications: Discontinued Medications Generic Name Dose Route Start Last Admin Trade Name Freq PRN Reason Stop Dose Admin Cefazolin Sodium 2 gm 08/19/24 19:56 08/19/24 20:50 Cefazolin 1 Gm Inj IVP 08/19/24 19:57 2 gm ONCE ONE Administration Sodium Chloride 250 mls @ 250 mls/hr 08/19/24 20:53 08/19/24 21:03 0.9 % Sodium Chloride 250 Ml IV 08/19/24 21:52 250 mls/hr .Q1H ONE Administration Medical Decision Making [facility] Narrative Medical decision making narrative: 84-year-old female with cellulitis of the left lower extremity, fall x2 today with increased weakness, acute renal injury. Patient will be admitted for further management at this time. Lab Data Lab results reviewed: Yes I reviewed the patient's lab results Labs: Lab Results 08/19/24 08/19/24 08/19/24 Range/Units 20:02 20:18 20:20 WBC 8.31 (4.50-11.00) K/uL RBC 3.23 L (4.00-5.20) m/uL Hgb 10.8 L (12.0-16.0) gm/dL Hct 32.9 L (33.0-51.0) % MCV 102 H (80-100) fL MCH 33 (26-34) pg MCHC 33 (32-36) gm/dL RDW Coeff of Bossman 14.1 (11.5-15.5) % Plt Count 229 (140-440) K/uL Neut % (Auto) 69.7 (42.0-72.0) % Lymph % (Auto) 16.7 L (20-44) % Foster % (Auto) 10.2 (0.0-11.0) % Eos % (Auto) 2.9 (0.0-7.0) % Baso % (Auto) 0.4 (0.0-3.0) % Neut # (Auto) 5.79 (1.7-7.0) K/uL Lymph # (Auto) 1.40 (0.90-2.90) K/uL Foster # (Auto) 0.80 (0.00-0.90) K/UL Eos # (Auto) 0.24 (0.00-0.50) K/uL Baso # (Auto) 0.03 (0.00-0.30) K/uL Abs Immat Gran (auto) 0.01 (0.00-0.30) K/uL Imm/Tot Granulo (auto) 0.1 % Sodium 132 L (135-149) mmol/L Potassium 4.2 (3.6-5.1) mmol/L Chloride 97 (96-114) mmol/L Carbon Dioxide 24 (20-32) mmol/L Anion Gap 11 (7-15) mEq/L BUN 32 H (7-30) mg/dL Creatinine 2.3 H (0.5-1.5) mg/dL Estimated GFR 20 ml/min Glucose 90 (60-115) mg/dL Lactate 2.3 H (0.5-1.9) mmol/L Calcium 9.4 (8.4-10.6) mg/dL Total Bilirubin 0.4 (0.1-1.5) mg/dL Direct Bilirubin 0.4 (0.0-0.5) mg/dL AST 30 (12-35) U/L ALT 15 (4-35) U/L Alkaline Phosphatase 86 (40-150) U/L Troponin I 0.02 (0.01-0.04) ng/mL C-Reactive Protein 0.8 (0.5-1.0) mg/dL NT-Pro-B Natriuret Pep 1090 pg/mL Total Protein 7.3 (6.0-8.3) g/dL Albumin 4.2 (3.3-5.0) g/dL Procalcitonin 0.08 (<0.50) ng/mL Urine Color Yellow (Yellow) Urine Appearance Clear (Clear) Urine pH 6.0 (5.0-8.5) Ur Specific Candor 1.010 (1.000-1.030) Urine Protein 1+ A (Negative) Urine Glucose (UA) Negative (Negative) Urine Ketones Negative (Negative) Urine Blood Trace-intact A (Negative) Urine Nitrite Negative (Negative) Urine Bilirubin Negative (Negative) Urine Urobilinogen 0.2 (0.2-1.0) Ur Leukocyte Esterase 3+ A (Negative) Urine RBC 5-10 A (0-2) Urine WBC 10-25 A (0-5) Urine WBC Clumps Few A (None) Ur Squamous Epith Cells Few (None-Few) Urine Bacteria Few A (None) SARS-CoV-2 (PCR) Negative SARS-CoV-2 (Negative) Influenza Type A (PCR) Negative PCR FLU A (Negative) Influenza Type B (PCR) Negative PCR FLU B (Negative) Imaging Data Venous US: Attestation: I have reviewed the pertinent imaging results. Radiologist's impression: TECHNIQUE: Left lower extremity Doppler venous ultrasound examination was performed. Grayscale and color Doppler images were obtained. Spectral analysis was performed. COMPARISON: Left lower extremity Doppler venous ultrasound 01/19/2023. FINDINGS: RIGHT LOWER EXTREMITY: Common femoral vein: Fully compressible. No deep vein thrombus. Normal flow and response to augmentation on color Doppler imaging. LEFT LOWER EXTREMITY: Common femoral vein: Fully compressible. No deep vein thrombus. Normal flow and response to augmentation on color Doppler imaging. Superficial femoral vein: Fully compressible. No deep vein thrombus. Normal flow on color Doppler imaging. Deep femoral vein: No deep vein thrombus Popliteal vein: Fully compressible. No deep vein thrombus. Normal flow on color Doppler imaging. Lower calf: The visualized posterior tibial and peroneal veins are fully compressible. No deep vein thrombus. Normal flow and response to augmentation on color Doppler imaging. Superficial veins: The superficial veins, including the greater saphenous vein, remain patent and are fully compressible. Soft tissues: No popliteal fossa fluid collection identified. IMPRESSION: No deep vein thrombus within the left lower extremity. ECG Data Attestation: I personally reviewed and interpreted this ECG as follows: Discharge Plan Discharge Clinical Impression: Weakness, Falls, Creatinine elevation, Cellulitis Patient Disposition: Admitted As Observation Condition: Stable Prescriptions: No Action pregabalin [Lyrica] 25 mg capsule 25 mg PO BID Qty: 30 0RF colchicine 0.6 mg tablet 0.6 mg PO BID Qty: 10 0RF lovastatin 20 mg tablet 20 mg PO BID Qty: 180 3RF lisinopril 20 mg tablet 20 mg PO QDAY Qty: 90 3RF glipizide 5 mg tablet 5 mg PO BID Qty: 180 3RF metoprolol succinate 25 mg tablet extended release 24 hr 50 mg PO DAILY Qty: 180 1RF metformin 1,000 mg tablet 1,000 mg PO BID Qty: 180 1RF furosemide [Lasix] 20 mg tablet 20 mg PO QAM Qty: 30 3RF sulfamethoxazole-trimethoprim [Bactrim DS] 800-160 mg tablet 1 tab PO BID Qty: 10 0RF Follow Up/Referrals: Amrik Mendiola MD [Primary Care Provider] -
[2024-08-19 20:32] LABS: Lactate* 2.3 mmol/L (0.5-1.9)
[2024-08-19 20:35] LABS: Basophils Absolute Auto 0.03 K/uL (0.00-0.30); Basophils Percent Auto 0.4 % (0.0-3.0); Eosinophils Absolute Auto 0.24 K/uL (0.00-0.50); Eosinophils Percent Auto 2.9 % (0.0-7.0); Hematocrit 32.9 % (33.0-51.0); Hemoglobin* 10.8 gm/dL (12.0-16.0); Immature Granulocytes Abs Auto 0.01 K/uL (0.00-0.30); Immature Granulocytes Pct Auto 0.1 %; Lymphocytes Percent Auto 16.7 % (20-44); Mean Corpuscular HGB Conc 33 gm/dL (32-36); Mean Corpuscular Hemoglobin 33 pg (26-34); Mean Corpuscular Volume 102 fL (80-100); Monocytes Percent Auto 10.2 % (0.0-11.0); Neutrophils Absolute Auto 5.79 K/uL (1.7-7.0); Neutrophils Percent Auto 69.7 % (42.0-72.0); Platelet Count* 229 K/uL (140-440); RDW Coefficient of Variation % 14.1 % (11.5-15.5); Red Blood Count 3.23 m/uL (4.00-5.20); White Blood Count* 8.31 K/uL (4.50-11.00)
[2024-08-19 20:38] LABS: Appearance Urine Clear (Clear); Bilirubin Urine Negative (Negative); Blood Urine Trace-intact (Negative); Color Urine Yellow (Yellow); Glucose Urine Negative (Negative); Ketones Urine Negative (Negative); Leukocyte Esterase Urine 3+ (Negative); Nitrite Urine Negative (Negative); Protein Urine 1+ (Negative); Urobilinogen Urine 0.2 (0.2-1.0)
[2024-08-19 20:47] LABS: Slide Review Reflex No
[2024-08-19] MEDS: CEFAZOLIN 1 GM inj 2 GM IVP (20:50)
--- OUTSIDE RECORDS SUMMARY | 2024-08-19 20:59 | XMS_ITS | Clinical Summary ---
Author Organization [facility] Address [address] [place] [id number] Care Team Providers Care Soap Press Feeder Name Role Phone Genevieve Ford MD Primary [...] unspecified vessel or lesion type, unspecified whether [place] or transplanted heart Take 1 tablet by [...] Each 3 12/30/19 22 Active Dexcom G6 Business Services Analyst for continuous blood glucose monitor (CGM)Indications:T ype 2 diabetes mellitus without complication, without long-term current use of insulin (HC) To be used to read blood sugars follow wire winder directions. 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 Gender Identity Not on file Sexual Orientation [...] Comments Blood Pressure 147/73 07/03/2022 1:02 PM XEROX MACHINE OPERATOR Pulse 71 07/03/2022 1:02 PM XEROX MACHINE OPERATOR Temperature 37.1 C (98.7 F) 12/27/2017 7:50 AM CDT Respiratory Rate - - Oxygen Saturation 99% 07/03/2022 1:02 PM XEROX MACHINE OPERATOR Inhaled Oxygen Concentration - - Weight 68.7 kg (151 lb 6.4 oz) 07/03/2022 1:02 P M XEROX MACHINE OPERATOR Height 156.9 cm (5' 1.77) 07/03/2022 1:02 PM CS T Body Mass Index 27.9 07/03/2022 1:02 PM XEROX MACHINE OPERATOR Plan of Treatment Health Maintenance Due Date [...] MEDICARE PART A HB ONLY BLUE CROSS SUN'AQ BLUE MR PB ONLY Care Teams Soap Press Feeder Relationship Specialty Start Date End Date Genevieve Ford MD [address] [place] [address] PCP - General Family Practice 10/13/23
[2024-08-19] MEDS: 0.9 % SODIUM CHLORIDE 250 ml 250 ML IV (21:03)
[2024-08-19 21:15] LABS: Albumin* 4.2 g/dL (3.3-5.0); Chloride* 97 mmol/L (96-114); Sodium* 132 mmol/L (135-149)
[2024-08-19 21:16] LABS: Potassium* 4.2 mmol/L (3.6-5.1)
[2024-08-19 21:18] LABS: Blood Urea Nitrogen* 32 mg/dL (7-30); Creatinine* 2.3 mg/dL (0.5-1.5); Estimated Glomerular Filt Rate 20 ml/min
[2024-08-19 21:19] LABS: Alanine Aminotransferase* 15 U/L (4-35); Alkaline Phosphatase* 86 U/L (40-150); Anion Gap 11 mEq/L (7-15); Aspartate Amino Transferase* 30 U/L (12-35); Bilirubin Direct* 0.4 mg/dL (0.0-0.5); Bilirubin Total* 0.4 mg/dL (0.1-1.5); Calcium* 9.4 mg/dL (8.4-10.6); Carbon Dioxide* 24 mmol/L (20-32); Glucose* 90 mg/dL (60-115); Total Protein* 7.3 g/dL (6.0-8.3)
[2024-08-19 21:20] LABS: PCR FLU A Negative PCR FLU A (Negative); PCR FLU B Negative PCR FLU B (Negative); SARS PCR* Negative SARS-CoV-2 (Negative)
[2024-08-19 21:21] LABS: Bacteria Urine Few; Squamous Epithelial Cell Urine Few (None-Few); WBC Clumps Urine Few
[2024-08-19 21:21] LABS: C Reactive Protein* 0.8 mg/dL (0.5-1.0)
[2024-08-19 21:30] LABS: Troponin I* 0.02 ng/mL (0.01-0.04)
[2024-08-19 21:35] LABS: Procalcitonin* 0.08 ng/mL (<0.50)
[2024-08-19 21:38] LABS: NT Pro B Type NatriureticPept* 1090 pg/mL
--- NOTE | 2024-08-19 23:34 | P.IMHP_ITS ---
Assessment and Plan Assessment and plan (1) OREN (acute kidney injury): Problem comment: Creatinine 2.3, baseline 1.1 Lactate 2.3 - recheck on admission to floor Most likely culprit is Bactrim - discontinued as UC is negative Holding colchicine, lisinopril, lasix Gentle IVF overnight, recheck creatinine in morning Status: Acute (2) Falls: Problem comment: x2 today, wobbly legs Chronic leg pain Recently started on Lyrica - discontinue (patient does not want to continue this) PT/OT consults management services technician as needed for discharge planning. Independent living currently Status: Acute (3) Leg swelling: Problem comment: Chronic venous insufficiency, s/p stent placement Compression stockings (she admits she doesn't always wear these) Lasix is on her med list but she denies use of diuretic - pharmacy to confirm Status: Chronic (4) Peripheral vascular disease: Problem comment: Chronic venous insufficiency. Hx past stent placement Chronic erythema - reported to be no worse than normal on admission. Not warm to touch, nontender. Afebrile. Will forego further abx and monitor (no leukocytosis, procalcitonin 0.08) Followed by [facility], referral recently sent by PCP Status: Chronic (5) Gout: Problem comment: Hold colchicine in setting of OREN Status: Acute (6) Anemia: Problem comment: Chronic, hemoglobin 10.8, stable Per EMR, peripheral smear mild macrocytic anemia, commonly caused by B12 defici ency which patient does have. No evidence of dysplasia. Status: Acute (7) Diabetic neuropathy associated with type 2 diabetes mellitus: Problem comment: Most recent A1c 5.5 Continue glipizide. Hold metformin Status: Chronic (8) Hyperlipidemia: Problem comment: Continue statin Status: Chronic (9) Hypertension: Problem comment: Continue metoprolol Hold lisinopril in setting of OREN Status: Chronic Total Time Spent Total Time Spent: Today I spent 75 minutes seeing the patient, reviewing Expanse and EPIC notes/diagnostics, discussing the care plan with our care time that includes social work, PT/OT, pharmacy, RT, fci and documenting my impressions and plan in the medical record. Hospitalist- H&P: HPI History of Present Illness Date Seen: 08/19/24 Chief complaint: Fall Narrative: Geeta Horner is a 84 year old female past medical history significant for type 2 diabetes mellitus with neuropathy, chronic lower extremity edema, chronic venous insufficiency s/p stent placement, hypertension, DJD, hyperlipidemia, CAD, anemia, macrocytosis is admitted to the medical floor from the ED with OREN. Patient lives alone, has Life Alert, reports feeling well on Wednesday, her usual self. This morning was walking to or from the bathroom, she does not remember exactly, and remembers her legs feeling wobbly. She fell, not striking surrounding furniture, did not hit her head or lose consciousness. She used her Life Alert and was assisted up from the floor. She carried on with her day and again this evening while she was walking into the kitchen to make herself some dinner she felt her legs feeling wobbly. She attempted to grab on to a chair again fell from standing height. Again did not strike a surrounding furniture and did not hit her head or lose consciousness. For the 2nd time she has Life Alert and this time was brought to the ED. Other than her legs feeling wobbly today she denies recently feeling ill. Denies recent headache or dizziness. Denies recent chest pain or shortness of breath. No cough. No recent fevers or chills. Denies abdominal pain. No nausea or vomiting. Has chronic dysuria as well as chronic urinary frequency/urgency. She tells me she think she needs a bladder sling to help with this. She was seen on the for a wellness exam started on Bactrim for a suspected UTI. That culture has since returned negative. She think she has taken a total of 4 doses of Bactrim but has since stopped this. She was also recently started on Lyrica for her chronic leg pain. She has taken a couple of doses of this medication but thinks this is what has led to her unsteady gait and falling today. She tells me she will no longer be taking this medication. In the ED, patient was thought to have a left lower extremity cellulitis and started on IV cefazolin. The patient tells me however that the edema and redness of her left lower extremity is chronic and has been there for years. She looks at it tonight and tells me it is no worse than usual. She would rather not have any more IV antibiotics if not necessary. She has noted a small red itchy patch on her left thigh as well. She does not recall any sort of contact allergen. No surrounding erythema or streaking. Nonsmoker. Denies alcohol use. PCP is Dr. Mendiola. Wishes to be DNR/DNI. Review of Systems Narrative: REVIEW OF SYSTEMS: Complete review of systems performed and negative unless otherwise stated in HPI or below. [facility] Medical History Neuropathy ?G62.9 - Polyneuropathy, unspecified (ICD-10) Health care directive on file ?Z78.9 - Other specified health status (ICD-10) UTI (urinary tract infection) ?N39.0 - Urinary tract infection, site not specified (ICD-10) Carotid stenosis ?I65.29 - Occlusion and stenosis of unspecified carotid artery (ICD-10) Macrocytosis ?D75.89 - Other specified diseases of blood and blood-forming organs (ICD-10) Edema ?R60.9 - Edema, unspecified (ICD-10) Unsteadiness ?R26.81 - Unsteadiness on feet (ICD-10) Gout ?M10.9 - Gout, unspecified (ICD-10) History of non-ST elevation myocardial infarction (NSTEMI) (02/23/17) ?I25.2 - Old myocardial infarction (ICD-10) History of right breast cancer (1984) ?Z85.3 - Personal history of malignant neoplasm of breast (ICD-10) Postmenopausal atrophic vaginitis ?N95.2 - Postmenopausal atrophic vaginitis (ICD-10) Diabetic neuropathy associated with type 2 diabetes mellitus ?E11.40 - Type 2 diabetes mellitus with diabetic neuropathy, unspecified (ICD-10) Leg swelling ?M79.89 - Other specified soft tissue disorders (ICD-10) Coronary artery disease ?I25.10 - Atherosclerotic heart disease of [place] coronary artery without angina pectoris (ICD-10) Peripheral vascular disease ?I73.9 - Peripheral vascular disease, unspecified (ICD-10) Diabetes mellitus type 2 in nonobese ?E11.9 - Type 2 diabetes mellitus without complications (ICD-10) Hypertension (11/21/08) ?I10 - Essential (primary) hypertension (ICD-10) Hyperlipidemia (11/21/08) ?E78.5 - Hyperlipidemia, unspecified (ICD-10) Degenerative joint disease (DJD) of lumbar spine ?M47.816 - Spondylosis without myelopathy or radiculopathy, lumbar region (ICD-10) Scoliosis (11/21/08) ?M41.9 - Scoliosis, unspecified (ICD-10) Surgical History History of right common carotid artery stent placement ?Z98.890 - Other specified postprocedural states (ICD-10) ?Z95.828 - Presence of other vascular implants and grafts (ICD-10) History of intravascular stent placement ?Z95.828 - Presence of other vascular implants and grafts (ICD-10) History of bladder surgery (02/24/21) ?Z98.890 - Other specified postprocedural states (ICD-10) History of hysterectomy for cancer (~1989) ?Z90.710 - Acquired absence of both cervix and uterus (ICD-10) 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) ?Z95.1 - Presence of aortocoronary bypass graft (ICD-10) History of right mastectomy (1984) ?Z90.11 - Acquired absence of right breast and nipple (ICD-10) Family History Sister Myocardial infarction, Onset Age: 70 Breast cancer Skin cancer High blood pressure Sister Stroke, Onset Age: 70 Breast cancer Son Colon cancer, Onset Age: 55 High blood pressure Brother Skin cancer High blood pressure Mother High cholesterol High blood pressure Father High blood pressure Social History Narrative: , 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 [employer], lives in independent living, 3 adult kids Nonsmoker, quit 2013 before then 25 pack years No alcohol use What is your current living situation?: I presently have a place to live Problems where you live: no known problems Problems where you live details: n/a In the past 12 months, utilities in danger of being shut off: no In past 12 months, lack of transportation kept you from medical appts, meetings, work, or getting things needed for daily living: no In the past 12 mos, have been you worried that your food would run out before you had money to buy more?: never true In the past 12 mos, the food you bought just didn't last and you didn't have money to buy more?: never true Smoking Status: Former smoker Do you use any of these nicotine containing products: None Second hand tobacco smoke exposure: No How often do you have a drink containing alcohol: never AUDIT-C Alcohol total score: 0 Non-prescribed substance use: denies use How often does anyone, including family, friends and others, physically hurt you : never How often does anyone, including family, friends and others, insult or talk down to you: never How often does anyone, including family, friends and others, threaten you with harm: never How often does anyone, including family, friends and others, scream or curse at you: never service: No Meds Home Medications and Allergies Allergies Allergy/AdvReac Type Severity Reaction Status Date / Time No Known Drug Allergies Allergy Verified 08/16/24 13:53 Exam Narrative: Exam Narrative: PHYSICAL EXAM General: Very pleasant, appropriately conversant, NAD HEENT: Normocephalic, atraumatic, sclera white, EOMI, oral mucosa moist Cardiovascular: RRR, S1S2. Bilateral pitting edema, L > R Pulmonary: CTA bilaterally without rhonchi, rales, expiratory wheezes. No dyspnea Abdominal: Soft, nondistended, NTTP Neurological: Alert, answering questions appropriately, cranial nerves intact, no focal findings Extremities: LLE with +2 pitting edema. Mild erythema over lower leg which nuvia ent reports as normal. No streaking. NTTP. Neurovascularly intact Skin: Warm, dry. Top of left thigh with small erythematous dry patch x2 (not consistent with sulfa rash), no streaking or swelling Const: Vital Signs, click to edit/add: Vital Signs - 24 hr 08/19/24 19:32 08/19/24 20:28 08/19/24 20:28 Temperature 97.5 F L Pulse Rate Pulse Rate [Pulse Oximeter] 72 Respiratory Rate 16 14 Blood Pressure Blood Pressure [Le ft Arm] Blood Pressure [Ri ght Upper Arm] 148/86 H Pulse Oximetry 99 90 Oxygen Delivery Me thod Room Air 08/19/24 20:30 08/19/24 20:32 08/19/24 20:45 Temperature Pulse Rate 70 Pulse Rate [Pulse Oximeter] Respiratory Rate 18 18 12 Blood Pressure 138/53 L Blood Pressure [Le ft Arm] Blood Pressure [Ri ght Upper Arm] Pulse Oximetry 91 Oxygen Delivery Me thod 08/19/24 20:47 08/19/24 20:48 08/19/24 21:00 Temperature Pulse Rate 66 64 65 Pulse Rate [Pulse Oximeter] Respiratory Rate 19 20 14 Blood Pressure 129/57 L Blood Pressure [Le ft Arm] Blood Pressure [Ri ght Upper Arm] Pulse Oximetry 99 97 98 Oxygen Delivery Me thod 08/19/24 21:02 08/19/24 21:18 08/19/24 21:19 Temperature Pulse Rate 66 Pulse Rate [Pulse Oximeter] Respiratory Rate 16 19 16 Blood Pressure 122/58 L 121/69 Blood Pressure [Le ft Arm] Blood Pressure [Ri ght Upper Arm] Pulse Oximetry 98 Oxygen Delivery Me thod 08/19/24 21:30 08/19/24 21:32 08/19/24 21:33 Temperature Pulse Rate 66 68 66 Pulse Rate [Pulse Oximeter] Respiratory Rate 20 12 12 Blood Pressure 124/61 Blood Pressure [Le ft Arm] Blood Pressure [Ri ght Upper Arm] Pulse Oximetry 95 95 98 Oxygen Delivery Me thod 08/19/24 21:45 08/19/24 21:47 08/19/24 21:48 Temperature Pulse Rate 65 66 65 Pulse Rate [Pulse Oximeter] Respiratory Rate 14 19 21 Blood Pressure 128/78 Blood Pressure [Le ft Arm] Blood Pressure [Ri ght Upper Arm] Pulse Oximetry 97 97 96 Oxygen Delivery Me thod 08/19/24 22:00 08/19/24 22:02 08/19/24 22:20 Temperature Pulse Rate 65 66 Pulse Rate [Pulse Oximeter] Respiratory Rate 17 17 16 Blood Pressure 149/53 H Blood Pressure [Le ft Arm] Blood Pressure [Ri ght Upper Arm] Pulse Oximetry 98 97 Oxygen Delivery Me thod 08/19/24 22:21 08/19/24 22:36 Temperature 97.6 F Pulse Rate Pulse Rate [Pulse Oximeter] 76 Respiratory Rate 18 19 Blood Pressure 136/55 L Blood Pressure [Le ft Arm] 150/54 H Blood Pressure [Ri ght Upper Arm] Pulse Oximetry 98 Oxygen Delivery Me thod Room Air Hospitalist - H&P: Result Labs Labs: Short CBC 08/19/24 Range/Units 20:20 WBC 8.31 (4.50-11.00) K/uL Hgb 10.8 L (12.0-16.0) gm/dL Hct 32.9 L (33.0-51.0) % Plt Count 229 (140-440) K/uL BMP 08/19/24 20:20 Sodium 132 L Potassium 4.2 Chloride 97 Carbon Dioxide 24 BUN 32 H Creatinine 2.3 H Glucose 90 Calcium 9.4 Cardiac Enzymes 08/19/24 Range/Units 20:20 Troponin I 0.02 (0.01-0.04) ng/mL Liver Function 08/19/24 Range/Units 20:20 Total Bilirubin 0.4 (0.1-1.5) mg/dL Direct Bilirubin 0.4 (0.0-0.5) mg/dL AST 30 (12-35) U/L ALT 15 (4-35) U/L Alkaline Phosphatase 86 (40-150) U/L Albumin 4.2 (3.3-5.0) g/dL Urine 08/19/24 Range/Units 20:02 Urine Color Yellow (Yellow) Urine Appearance Clear (Clear) Urine pH 6.0 (5.0-8.5) Ur Specific [place] 1.010 (1.000-1.030) Urine Protein 1+ A (Negative) Urine Glucose (UA) Negative (Negative) Imaging Venous duplex bilateral: Attestation: I have reviewed the pertinent imaging results. Radiologist's impression: RIGHT LOWER EXTREMITY: Common femoral vein: Fully compressible. No deep vein thrombus. Normal flow and response to augmentation on color Doppler imaging. LEFT LOWER EXTREMITY: Common femoral vein: Fully compressible. No deep vein thrombus. Normal flow and response to augmentation on color Doppler imaging. Superficial femoral vein: Fully compressible. No deep vein thrombus. Normal flow on color Doppler imaging. Deep femoral vein: No deep vein thrombus Popliteal vein: Fully compressible. No deep vein thrombus. Normal flow on color Doppler imaging. Lower calf: The visualized posterior tibial and peroneal veins are fully compressible. No deep vein thrombus. Normal flow and response to augmentation on color Doppler imaging. Superficial veins: The superficial veins, including the greater saphenous vein, remain patent and are fully compressible. Soft tissues: No popliteal fossa fluid collection identified. IMPRESSION: No deep vein thrombus within the left lower extremity.
[2024-08-19] MEDS: 0.9 % SODIUM CHLORIDE 1000 ml 1,000 ML 75 ML IV (23:58)
[2024-08-20 00:03] LABS: Lactate* 1.9 mmol/L (0.5-1.9)
[2024-08-20 00:48] VITALS: PULSE 65
[2024-08-20 03:31] VITALS: BP 144/58; PULSE 72; RESP 20; O2SAT 99
[2024-08-20 06:23] LABS: Hematocrit 31.5 % (33.0-51.0); Hemoglobin* 10.3 gm/dL (12.0-16.0); Mean Corpuscular HGB Conc 33 gm/dL (32-36); Mean Corpuscular Hemoglobin 34 pg (26-34); Mean Corpuscular Volume 103 fL (80-100); Platelet Count* 216 K/uL (140-440); Red Blood Count 3.07 m/uL (4.00-5.20); White Blood Count* 6.82 K/uL (4.50-11.00)
[2024-08-20 06:24] LABS: Slide Review Reflex No
[2024-08-20 06:31] LABS: Chloride* 103 mmol/L (96-114); Potassium* 4.8 mmol/L (3.6-5.1); Sodium* 135 mmol/L (135-149)
[2024-08-20 06:34] LABS: Anion Gap 11 mEq/L (7-15); Blood Urea Nitrogen* 27 mg/dL (7-30); Carbon Dioxide* 21 mmol/L (20-32); Estimated Glomerular Filt Rate 24 ml/min
[2024-08-20 06:35] LABS: Calcium* 9.3 mg/dL (8.4-10.6); Glucose* 97 mg/dL (60-115)
[2024-08-20 07:00] VITALS: BP 130/57; PULSE 60; RESP 18; TEMP 36.7; O2SAT 97
--- NOTE | 2024-08-20 07:00 | PC.NURSE ---
Shift note ([id number]): Patient admitted from ED at 2230. Pleasant, alert and oriented. Ambulated to bathroom with walker, gait belt and assist of one. Gait unsteady at times. Denied pain. Urinated several times during the night. Urine light raj and cloudy.?
[2024-08-20] MEDS: glipiZIDE 5 MG TABLET PO (07:38)
[2024-08-20 07:54] VITALS: PULSE 65
[2024-08-20] MEDS: LOVASTATIN 20 MG TABLET PO (09:19)
[2024-08-20] MEDS: METOPROLOL SUCCINATE (XL) 25 MG TAB 50 MG PO (09:19)
[2024-08-20 11:00] VITALS: BP 134/76; PULSE 71; RESP 18; TEMP 36.6; O2SAT 99
[2024-08-20 11:56] LABS: Creatinine* 1.8 mg/dL (0.5-1.5); Est. Creatinine Clearance* 17.56; Estimated Glomerular Filt Rate 27 ml/min
--- NOTE | 2024-08-20 12:27 | P.DS_ITS ---
DS: Providers Provider Date Seen: 08/20/24 Date of admission: 08/19/24 23:35 Primary care physician: Amrik Mendiola MD Admitting Clinician: Malissa Justice MD Consults: 08/19/24 23:35 Consult to Occupational Therapy [CONS] Routine Comment: Reason(s) for OT Consult:: Evaluate and Treat Any Restrictions?:: No Restrictions Consult to Physical Therapy [CONS] Routine Comment: Reason(s) for PT Consult:: Evaluate and Treat Any Restrictions?:: No Restrictions Consult to Youth Corrections Officer [CONS] Routine Comment: Reason for Consult:: Social Service Consult Attending Physician on discharge: Topher Low MD Date of Discharge: 08/20/24 DS: Diagnosis Discharge Diagnosis (1) OREN (acute kidney injury): Status: Acute Problem details: 08/19/2024: Creatinine 2.3, baseline 1.1 Lactate 2.3 - recheck on admission to floor Most likely culprit is Bactrim - discontinued as UC is negative Holding colchicine, lisinopril, lasix Gentle IVF overnight, recheck creatinine in morning 08/20/2024: 0600 Cr 2.0, and 1200 Cr 1.8 (2) Adverse effect of correct medicinal substance properly administered: Status: Acute Problem details: - OREN likely due to trimethoprim-sulfamethoxazole (Bactrim) - transient myasthenia (muscle weakness) of lower extremities possibly due to pregabalin (Lyrica) (3) Falls: Status: Acute Problem details: 08/19/2024: x2 today, wobbly legs Chronic leg pain Recently started on Lyrica - discontinue (patient does not want to continue this) PT/OT consults obtained with recommendation for home PT/OT assessment and treatment (4) Weakness: Status: Acute (5) Unsteadiness: Status: Acute (6) Diabetic neuropathy associated with type 2 diabetes mellitus: Status: Chronic Problem details: Most recent A1c 5.5 Continue glipizide. Hold metformin (7) Stage 3b chronic kidney disease: Status: Acute Problem details: -baseline CrCl 32, Cr 1.1 (8) Anemia of chronic renal failure, stage 3b: Status: Acute Problem details: - baseline Hg 10 (9) Venous insufficiency (chronic) (peripheral): Status: Acute (10) Edema: Status: Acute (11) Peripheral vascular disease: Status: Chronic Problem details: Chronic venous insufficiency. Hx past stent placement Chronic erythema - reported to be no worse than normal on admission. Not warm to touch, nontender. Afebrile. Will forego further abx and monitor (no leukocytosis, procalcitonin 0.08) Followed by [facility], referral recently sent by PCP (12) Mild cognitive impairment: Status: Acute Problem details: - MOCA administered 08/20/2024: scored 20/30, with deficits in memory, attention and executive function - Recommended to family (2 sons) that they monitor patient carefully and begin considering alternative safe living opportunities for the patient (13) Leg swelling: Status: Chronic Problem details: Chronic venous insufficiency, s/p stent placement Compression stockings (she admits she doesn't always wear these) Lasix is on her med list but she denies use of diuretic - pharmacy to confirm (14) Diabetes mellitus type 2 in nonobese: Status: Chronic (15) Hypertension: Status: Chronic Problem details: Continue metoprolol Hold lisinopril in setting of OREN (16) Hyperlipidemia: Status: Chronic Problem details: Continue statin (17) Coronary artery disease: Status: Chronic DS: Summary Hospital Course Hospital Course: Admission history of present illness, 08/19/2024: ?84 year old female past medical history significant for type 2 diabetes mellitus with neuropathy, chronic lower extremity edema, chronic venous insufficiency s/p stent placement, hypertension, DJD, hyperlipidemia, CAD, anemia, macrocytosis is admitted to the medical floor from the ED with OREN. ?Patient lives alone, has Life Alert, reports feeling well on Wednesday, her usual self. This morning was walking to or from the bathroom, she does not remember exactly, and remembers her legs feeling wobbly. She fell, not striking surrounding furniture, did not hit her head or lose consciousness. She used her Life Alert and was assisted up from the floor. She carried on with her day and again this evening while she was walking into the kitchen to make herself some dinner she felt her legs feeling wobbly. She attempted to grab on to a chair again fell from standing height. Again did not strike a surrounding furniture and did not hit her head or lose consciousness. For the 2nd time she has Life Alert and this time was brought to the ED. Other than her legs feeling wobbly today she denies recently feeling ill. Denies recent headache or dizziness. Denies recent chest pain or shortness of breath. No cough. No recent fevers or chills. Denies abdominal pain. No nausea or vomiting. Has chronic dysuria as well as chronic urinary frequency/urgency. She tells me she think she needs a bladder sling to help with this. She was seen on the for a wellness exam started on Bactrim for a suspected UTI. That culture has since returned negative. She think she has taken a total of 4 doses of Bactrim but has since stopped this. She was also recently started on Lyrica for her chronic leg pain. She has taken a couple of doses of this medication but thinks this is what has led to her unsteady gait and falling today. She tells me she will no longer be taking this medication. ?In the ED, patient was thought to have a left lower extremity cellulitis and started on IV cefazolin. The patient tells me however that the edema and redne ss of her left lower extremity is chronic and has been there for years. She looks at it tonight and tells me it is no worse than usual. She would rather not have any more IV antibiotics if not necessary. She has noted a small red itchy patch on her left thigh as well. She does not recall any sort of contact allergen. No surrounding erythema or streaking. ?Nonsmoker. Denies alcohol use. PCP is Dr. Mendiola. Wishes to be DNR/DNI.? Hospital day 2, 08/20/2024: Patient feels back to baseline. Able to carry out her ADLs. Transfers and ambulates independently with use of standard walker or 4 wheeled walker. Baseline creatinine is 1.1. On assessment in the emergency department yesterday creatinine was up to 2.3. At 6:00 a.m. today her creatinine was down to 2.0. At 12:00 p.m. today her creatinine was down to 1.8. Patient is discharged home with followup as specified including reassessment of creatinine level and hemoglobin for primary care physician to review and consider. We stopped the pregabalin and trimethoprim sulfamethoxazole that she was on when she 1st presented. We also assess her cognitive function today by administering a Hayden Cognitive Assessment (MOCA), and she scored 20/30 with deficits in memory, attention, and executive function. I reviewed these findings with the patient and her 2 sons. Recommended that they monitor the patient closely and again the conversation and considerations regarding possible future alternative living setting where she can be safe. Status at Discharge Functional status at discharge: uses cane/walker Overall status at discharge: patient is progressing back to baseline Time Spent with Patient Time attestation: Total time spent providing and/or coordinating discharge services: Time spent: Less than 30 minutes Exam Narrative: Exam Narrative: General: Very pleasant, appropriately conversant, NAD HEENT: Normocephalic, atraumatic, sclera white, EOMI, oral mucosa moist Cardiovascular: RRR, S1S2. Bilateral pitting edema, L > R Pulmonary: CTA bilaterally without rhonchi, rales, expiratory wheezes. No dyspnea Abdominal: Soft, nondistended, NTTP Neurological: Alert, answering questions appropriately, cranial nerves intact, no focal findings Extremities: LLE with +2 pitting edema. Mild erythema over lower leg which patient reports as normal. No streaking. NTTP. Neurovascularly intact Skin: Warm, dry. Top of left thigh with small erythematous dry patch x2 (not consistent with sulfa rash), no streaking or swelling Const: Vital Signs, click to edit/add: Vital Signs - 24 hr 08/19/24 19:32 08/19/24 20:28 08/19/24 20:28 Temperature 97.5 F L Pulse Rate Pulse Rate [Pulse Oximeter] 72 Respiratory Rate 16 14 Blood Pressure Blood Pressure [Le ft Arm] Blood Pressure [Ri ght Upper Arm] 148/86 H Pulse Oximetry 99 90 Oxygen Delivery Me thod Room Air 08/19/24 20:30 08/19/24 20:32 08/19/24 20:45 Temperature Pulse Rate 70 Pulse Rate [Pulse Oximeter] Respiratory Rate 18 18 12 Blood Pressure 138/53 L Blood Pressure [Le ft Arm] Blood Pressure [Ri ght Upper Arm] Pulse Oximetry 91 Oxygen Delivery Me thod 08/19/24 20:47 08/19/24 20:48 08/19/24 21:00 Temperature Pulse Rate 66 64 65 Pulse Rate [Pulse Oximeter] Respiratory Rate 19 20 14 Blood Pressure 129/57 L Blood Pressure [Le ft Arm] Blood Pressure [Ri ght Upper Arm] Pulse Oximetry 99 97 98 Oxygen Delivery Me thod 08/19/24 21:02 08/19/24 21:18 08/19/24 21:19 Temperature Pulse Rate 66 Pulse Rate [Pulse Oximeter] Respiratory Rate 16 19 16 Blood Pressure 122/58 L 121/69 Blood Pressure [Le ft Arm] Blood Pressure [Ri ght Upper Arm] Pulse Oximetry 98 Oxygen Delivery Me thod 08/19/24 21:30 08/19/24 21:32 08/19/24 21:33 Temperature Pulse Rate 66 68 66 Pulse Rate [Pulse Oximeter] Respiratory Rate 20 12 12 Blood Pressure 124/61 Blood Pressure [Le ft Arm] Blood Pressure [Ri ght Upper Arm] Pulse Oximetry 95 95 98 Oxygen Delivery Me thod 08/19/24 21:45 08/19/24 21:47 08/19/24 21:48 Temperature Pulse Rate 65 66 65 Pulse Rate [Pulse Oximeter] Respiratory Rate 14 19 21 Blood Pressure 128/78 Blood Pressure [Le ft Arm] Blood Pressure [Ri ght Upper Arm] Pulse Oximetry 97 97 96 Oxygen Delivery Me thod 08/19/24 22:00 08/19/24 22:02 08/19/24 22:20 Temperature Pulse Rate 65 66 Pulse Rate [Pulse Oximeter] Respiratory Rate 17 17 16 Blood Pressure 149/53 H Blood Pressure [Le ft Arm] Blood Pressure [Ri ght Upper Arm] Pulse Oximetry 98 97 Oxygen Delivery Me thod 08/19/24 22:21 08/19/24 22:36 08/19/24 23:00 Temperature 97.6 F Pulse Rate Pulse Rate [Pulse Oximeter] 76 Respiratory Rate 18 19 19 Blood Pressure 136/55 L Blood Pressure [Le ft Arm] 150/54 H Blood Pressure [Ri ght Upper Arm] Pulse Oximetry 98 98 Oxygen Delivery Me thod Room Air Room Air 08/20/24 00:48 08/20/24 03:31 08/20/24 07:00 Temperature 98.1 F Pulse Rate 65 Pulse Rate [Pulse Oximeter] 72 60 Respiratory Rate 20 18 Blood Pressure Blood Pressure [Le ft Arm] 144/58 H 130/57 L Blood Pressure [Ri ght Upper Arm] Pulse Oximetry 99 97 Oxygen Delivery Me thod Room Air Room Air 08/20/24 07:00 08/20/24 07:54 08/20/24 11:00 Temperature 97.8 F Pulse Rate 65 Pulse Rate [Pulse Oximeter] 60 71 Respiratory Rate 18 18 Blood Pressure Blood Pressure [Le ft Arm] 134/76 Blood Pressure [Ri ght Upper Arm] Pulse Oximetry 99 Oxygen Delivery Me thod Room Air DS: Data Data Completed and Pending Labs on day of discharge: Labs from last 24 hours 08/20/24 08/20/24 08/20/24 11:35 06:02 00:01 WBC 6.82 RBC 3.07 L Hgb 10.3 L Hct 31.5 L MCV 103 H MCH 34 MCHC 33 RDW Coeff of [place] Plt Count 216 Neut % (Auto) Lymph % (Auto) [place] % (Auto) Eos % (Auto) Baso % (Auto) Neut # (Auto) Lymph # (Auto) [place] # (Auto) Eos # (Auto) Baso # (Auto) Abs Immat Gran (auto) Imm/Tot Granulo (auto) Sodium 135 Potassium 4.8 Chloride 103 Carbon Dioxide 21 Anion Gap 11 BUN 27 Creatinine 1.8 H 2.0 H Estimated Creat Clear 17.56 15.80 Estimated GFR 27 24 Glucose 97 Lactate 1.9 Calcium 9.3 Total Bilirubin Direct Bilirubin AST ALT Alkaline Phosphatase Troponin I C-Reactive Protein NT-Pro-B Natriuret Pep Total Protein Albumin Procalcitonin Urine Color Urine Appearance Urine pH Ur Specific [place] Urine Protein Urine Glucose (UA) Urine Ketones Urine Blood Urine Nitrite Urine Bilirubin Urine Urobilinogen Ur Leukocyte Esterase Urine RBC Urine WBC Urine WBC Clumps Ur Squamous Epith Cells Urine Bacteria SARS-CoV-2 (PCR) Influenza Type A (PCR) Influenza Type B (PCR) 08/19/24 08/19/24 08/19/24 20:20 20:18 20:02 WBC 8.31 RBC 3.23 L Hgb 10.8 L Hct 32.9 L MCV 102 H MCH 33 MCHC 33 RDW Coeff of [place] 14.1 Plt Count 229 Neut % (Auto) 69.7 Lymph % (Auto) 16.7 L [place] % (Auto) 10.2 Eos % (Auto) 2.9 Baso % (Auto) 0.4 Neut # (Auto) 5.79 Lymph # (Auto) 1.40 [place] # (Auto) 0.80 Eos # (Auto) 0.24 Baso # (Auto) 0.03 Abs Immat Gran (auto) 0.01 Imm/Tot Granulo (auto) 0.1 Sodium 132 L Potassium 4.2 Chloride 97 Carbon Dioxide 24 Anion Gap 11 BUN 32 H Creatinine 2.3 H Estimated Creat Clear Estimated GFR 20 Glucose 90 Lactate 2.3 H Calcium 9.4 Total Bilirubin 0.4 Direct Bilirubin 0.4 AST 30 ALT 15 Alkaline Phosphatase 86 Troponin I 0.02 C-Reactive Protein 0.8 NT-Pro-B Natriuret Pep 1090 Total Protein 7.3 Albumin 4.2 Procalcitonin 0.08 Urine Color Yellow Urine Appearance Clear Urine pH 6.0 Ur Specific [place] 1.010 Urine Protein 1+ A Urine Glucose (UA) Negative Urine Ketones Negative Urine Blood Trace-intact A Urine Nitrite Negative Urine Bilirubin Negative Urine Urobilinogen 0.2 Ur Leukocyte Esterase 3+ A Urine RBC 5-10 A Urine WBC 10-25 A Urine WBC Clumps Few A Ur Squamous Epith Cells Few Urine Bacteria Few A SARS-CoV-2 (PCR) Negative SARS-CoV-2 Influenza Type A (PCR) Negative PCR FLU A Influenza Type B (PCR) Negative PCR FLU B Preliminary micro results at discharge 08/19/24 20:02 Urine Culture - Preliminary Urine,Clean Catch Culture in Progress Imaging Venous US: Radiologist's impression: Negative for deep venous thrombosis. Discharge Plan Discharge Disposition: Home, Self-Care Date of Admission: 08/19/24 23:35 Attending Provider on Discharge: Topher Low Primary Care Provider: Amrik Mendiola Condition: Improved Anticipated Discharge Date/Time: 08/20/24 13:00 Discharge Medications: Continued clopidogrel 75 mg tablet 75 mg PO DAILY aspirin 325 mg tablet 325 mg PO Q6H PRN sennosides-docusate sodium [Senna with Docusate Sodium] 8.6-50 mg tablet 1 tab-cap PO DAILY PRN lovastatin 20 mg tablet 20 mg PO BID Qty: 180 3RF lisinopril 20 mg tablet 20 mg PO QDAY Qty: 90 3RF glipizide 5 mg tablet 5 mg PO BID Qty: 180 3RF metoprolol succinate 25 mg tablet extended release 24 hr 50 mg PO DAILY Qty: 180 1RF metformin 1,000 mg tablet 1,000 mg PO BID Qty: 180 1RF furosemide [Lasix] 20 mg tablet 20 mg PO QAM Qty: 30 3RF Discontinued pregabalin [Lyrica] 25 mg capsule 25 mg PO BID Qty: 30 0RF sulfamethoxazole-trimethoprim [Bactrim DS] 800-160 mg tablet 1 tab PO BID Qty: 10 0RF Discharge Orders: Discharge Order (Routine); Ordered 08/20/24 Ordered By: Topher Low Patient Education: How to Choose and Use a Walker (GEN), Peripheral Vascular Disease (DC), Stasis Dermatitis (DC), Leg Edema (ED), Venous Insufficiency (DC) Additional Instructions: 1. Follow-up with primary child care associate in 2-5 days with previsit Creatinine level, Hemoglobin 2. Home care referral made for in home PT and OT assessment and treatment 3. Consider increased support in the home to help you remain as safely independent as you can for as long as you can Activity Level: Activity as Tolerated and Use Walker Discharge Diet: Diabetic Follow Up Appointments: Amrik Mendiola MD [Primary Care Provider] - Forms: [facility] [facility] Appth Info Instructions
--- NOTE | 2024-08-20 14:15 | PC.NURSE ---
End of Shift: patient pleasant and cooperative, A&O. VSS, afebrile. SpO2 maintained above 90% on RA. 1A with walker and gait belt. Tolerating regular diet. IV removed with tip intact. Discharge instructions provided, all questions answered. Discharged to home with son.
--- NOTE | 2024-08-21 13:47 | PC.SOCIAL ---
Discharge Planning: MAHENDRA received orders for Home Care - PT/OT/RN. MAHENDRA faxed orders to [facility] at [facility] to see if they could accept patient. MAHENDRA received a call from [facility] inquiring about when discharge would be. MAHENDRA explained that patient discharged on 08/20. MAHENDRA received another call from [employer] stating that they called patient and they declined services and would f/u with their PCP.
== END 2024-08-20 13:31 | disposition home or self-care (01) | DRG 684 ==
LOC: ED 22:06 → MEDSURG 22:26
PROVIDERS: Internal Medicine; Admitting Provider Physician Assistant; Emergency Provider Family Medicine; PCP Internal Medicine; Visit Provider Family Medicine
DX: N17.9 Acute kidney failure, unspecified (principal); T36.8X5A Adverse effect of other systemic antibiotics, initial encounter; R29.6 Repeated falls; R60.9 Edema, unspecified; I73.9 Peripheral vascular disease, unspecified; M10.9 Gout, unspecified; D53.9 Nutritional anemia, unspecified; E11.40 Type 2 diabetes mellitus with diabetic neuropathy, unspecified; Z79.84 Long term (current) use of oral hypoglycemic drugs; E78.5 Hyperlipidemia, unspecified; M79.89 Other specified soft tissue disorders; E11.22 Type 2 diabetes mellitus with diabetic chronic kidney disease; I12.9 Hypertensive chronic kidney disease with stage 1 through stage 4 chronic kidney disease, or unspecified chronic kidney disease; N18.32 Chronic kidney disease, stage 3b; R53.1 Weakness; R26.81 Unsteadiness on feet; D63.1 Anemia in chronic kidney disease; I87.2 Venous insufficiency (chronic) (peripheral); G31.84 Mild cognitive impairment of uncertain or unknown etiology; I25.10 Atherosclerotic heart disease of native coronary artery without angina pectoris
CPT/HCPCS: 36415; 80048; 80076; 81001; 82565; 83605; 83880; 84145; 84484; 85025; 85027; 86140; 87086; 87631; 93005; 93971; 94761; 97116; 97161; 97165; 97530; 97535; 99284; 99285; A9270; J0690; J7030; J7050

== ENCOUNTER 2024-08-23 08:20 | Outpatient (CLI) | payer MEDICARE, BC, SELFPAY | END 2024-08-23 08:21 | disposition home or self-care (01) | LOC: NFLDREF 08:20 | PROVIDERS: PCP Internal Medicine; Visit Provider Family Medicine | DX: I10 Essential (primary) hypertension (principal) | CPT/HCPCS: 80048 ==

== ENCOUNTER 2024-09-17 01:04 | Outpatient (CLI) | payer MEDICARE, BC, SELFPAY | END 2024-09-17 01:05 | disposition home or self-care (01) | LOC: AMB 09-18 13:35 | PROVIDERS: PCP Internal Medicine; Visit Provider Family Medicine | DX: R53.1 Weakness (principal) | CPT/HCPCS: A0998 ==

== ENCOUNTER 2024-10-04 14:14 | Outpatient (CLI) | payer MEDICARE, BC, SELFPAY | END 2024-10-04 14:15 | disposition home or self-care (01) | LOC: RAD 14:18 | PROVIDERS: PCP Internal Medicine; Visit Provider Internal Medicine | DX: R60.9 Edema, unspecified (principal); I34.0 Nonrheumatic mitral (valve) insufficiency; I07.1 Rheumatic tricuspid insufficiency; Z95.1 Presence of aortocoronary bypass graft | CPT/HCPCS: 93306 ==

== ENCOUNTER 2024-10-10 10:11 | Outpatient (CLI) | payer MEDICARE, BC, SELFPAY | END 2024-10-10 10:12 | disposition home or self-care (01) | LOC: AMB 10-11 13:24 | PROVIDERS: PCP Internal Medicine; Visit Provider Emergency Medicine | DX: R53.1 Weakness (principal) | CPT/HCPCS: A0998 ==

== ENCOUNTER 2024-11-04 01:35 | Outpatient (CLI) | payer MEDICARE, BC, SELFPAY | END 2024-11-04 01:36 | disposition home or self-care (01) | LOC: AMB 12-08 09:34 | PROVIDERS: PCP Internal Medicine; Visit Provider Family Medicine | DX: R53.1 Weakness (principal) | CPT/HCPCS: A0998 ==

== ENCOUNTER 2024-11-25 01:07 | Outpatient (CLI) | payer MEDICARE, BC, SELFPAY | END 2024-11-25 01:08 | disposition home or self-care (01) | LOC: AMB 11-26 10:10 | PROVIDERS: PCP Internal Medicine; Visit Provider Orthopaedic Surgery | DX: R19.7 Diarrhea, unspecified (principal) | CPT/HCPCS: A0425; A0429 ==

== ENCOUNTER 2024-11-25 01:29 | Emergency (ER) | payer MEDICARE, BC, SELFPAY ==
--- OUTSIDE RECORDS SUMMARY | 2024-10-31 08:00 | XMS_ITS ---
Author Organization [facility] e Address [address] [place] [address] Care Team Providers Care Shipping Manager Name Role Phone JoElizabeth cooperph Primary Care Provider Sarah Torres Unavailable [phone] Donal Haddad Unavailable [phone] Allergies No Known Allergies REASON FOR VISIT [...] Status W/U Status Risk Notes Problem Urge incontinenc e (N39.41) Active confirmed Vital Signs Blood pressure systolic 120 mm Hg 11/01/19 25 Blood pressure diastolic 52 mm Hg 025 Height 59.75 in 10/31/2024 Weight 142.4 lbs 10/31/2024 BMI 28.04 kg/m2 10/31/2024 Encounters Encounter Location Date Provider Diagnosis [facility] [address] [place] [address] 10/31/2024 Donal Haddad Urge incontinence N39.41 Assessments [...] the information in the transcribed note. A rock star was present. Authenticated by Dr. Haddad. Plan [...] the information in the transcribed note. A rock star was present. Authenticated by Dr. Haddad. Next Appt Details Follow Up: prn, Reason: Provider Name:Donal Ortega rd, 12/25/2024 11:00:00 AM, [address] [place], [address], Provider Name:Donal Ortega rd, 12/25/2024 12:15:00 PM, [address] [place], [address], Progress Notes * Geeta LEIVA LakeshaOB:[birth year] (84 yo F)Acc No.[id number]:10/31/2024 Patient: Jose De Jesus WATERS Geeta Joseph Provider: Teo HADDAD MD :1940 A ge:84 Y S ex:Female Date:10/31/2024 Address:[address] [place] [address], [address] [place] [id number] Pcp:Amrik Mendiola Subjective: * Chief Complaints: * [...] HPI for details. 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 A rock star was present. Authenticated by Dr. Haddad. * [...] Screening for depression was last done on: 0 10/31/2024 * Follow Up: p rn * Images: Billing Information: * Visit Code: 72121 Office Visit, Est Pt., Level 5. * Procedure Codes: 23395 BRIEF EMOTIONAL/BEHAV ASSMT. Modifiers: 59 * Sign off status: Completed true * Provider: Teo HADDAD MD Date: 10/31/2024 Generated for Justin watkins/Ashley/Marvin on: 11/25/2024 01:32 AM CDT History and Physical Notes * [...]
--- OUTSIDE RECORDS SUMMARY | 2024-11-25 01:32 | XMS_ITS | Clinical Summary ---
Author Organization [facility] Address [address] [place] [id number] Care Team Providers Care Manager Respiratory Name Role Phone Genevieve Ford MD Primary [...] unspecified vessel or lesion type, unspecified whether tejon or transplanted heart Take 1 tablet by [...] Each 3 12/30/19 22 Active Dexcom G6 Sample Processor for continuous blood glucose monitor (CGM)Indications:T ype 2 diabetes mellitus without complication, without long-term current use of insulin (HC) To be used to read blood sugars follow hull builder directions. 1 Each 12/30/19 22 Active torsemide [...] daily with meals. 180 Tablet 4 07/04/19 Active metoprolol succinate (TOPROL XL) 25 mg Sustained-Release tabletIndications: Essential hypertension Take 2 Tablets (50 mg) by mouth once daily. 90 Tablet 4 07/04/19 23 Active glipiZIDE (GLUCOTROL) 5 mg tabletIndications: Type 2 diabetes mellitus without complication, without long-term current use of insulin (HC) Take 1 Tablet (5 mg) by mouth two times daily before meals. 180 Tablet 1 07/04/19 Active lisinopriL (PRINIVIL; ZESTRIL) 20 mg tabletIndications: Type 2 diabetes mellitus without complication, without long-term current use of insulin (HC),Essential hypertension Take 1 Tablet (20 mg) by mouth once daily. 90 Tablet 4 07/04/19 23 Active clopidogreL (PLAVIX) 75 mg tabletIndications: PAD (peripheral artery disease) TAKE 1 TABLET BY MOUTH EVERY DAY IN THE MORNING. 90 Tablet 4 07/04/19 Active lovastatin (MEVACOR) 20 mg tabletIndications: Other [...] Overview: Added automatically from request for surgery [id number] Edema of lower extremity 03/11/2018 Arteriosclerosis of [...] use disorder 01/04/2007 012 DIABETES 04/03/2002 06/09/2017 Encounters Date Type Department Care Team Description 10/04/2024 3:00 PM CDT Ancillary Procedure [facility] [address] [place] [address] from Last 3 Months Immunizations Immunization Administration Dates Next Due Amb [...] brain cancer Heart Disease Other 2 nephew, mult M I, age 64 Cancer Sister 2 skin Cancer-breast [...] on file Legal Sex Female 5:48 AM ROOF DESIGNER Gender Identity Not on file Sexual Orientation [...] Comments Blood Pressure 147/73 07/03/2022 1:02 PM ROOF DESIGNER Pulse 71 07/03/2022 1:02 PM ROOF DESIGNER Temperature 37.1 C (98.7 F) 12/27/2017 7:50 AM CDT Respiratory Rate - - Oxygen Saturation 99% 07/03/2022 1:02 PM ROOF DESIGNER Inhaled Oxygen Concentration - - Weight 68.7 kg (151 lb 6.4 oz) 07/03/2022 1:02 P M ROOF DESIGNER Height 156.9 cm (5' 1.77) 07/03/2022 1:02 PM CS T Body Mass Index 27.9 07/03/2022 1:02 PM ROOF DESIGNER Plan of Treatment Health Maintenance Due Date Last Done Comments Pneumococcal series for age 50+ (1 of [...] 08/27/2021, 03/25/2021, Additional history exists Influenza Vaccine (#1) 2025 , 01/19/2020, 02/22/2019, Additional history exists DEXA/DXA scan for age 65+ Completed 06/16/2011 Zoster (shingles) series for age 50+ Completed 06/20/2022, 03/04/2021, 03/14/2016 Hepatitis B series for 19+ Aged Out N o longer eligible based on patient's age to complete this topic Procedures Procedure Name Priority Date/Time Associated Diagnosis Comments ECHO TTE COMPLETE WO CONTRAST Routine 10/04/2024 3:07 PM CDT Edema, unspecified from Last 3 Months Results * ECHO TTE COMPLETE WO CONTRAST (10/04/2024 3:07 PM CDT) AORTIC VALVE MEAN PG 6 mmHg EJECTION FRACTION 50 % LVEDD 2.5 cm EJECTION FRACTION 45 - 50% Anatomical Region Laterality Modality Ultrasound 10/04/2024 2:43 PM CDT Narrative 10/04/2024 4:42 PM CDT ECHOCARDIOGRAM GEETA HORNER : 1940 84 years Study Date: 10/04/2024 2:43:45 PM Gender: F BP: 148/77 mmHg Height: 155.00 cm BSA: 1.71 m Weight: 72.00 kg Tech: SHAAN Referring MD: AMRIK SPEAR Site: [facility] Reading Location: Mobile-OP Patient Location: Outpatient. Procedure: 2D, Color Doppler and Spectral Doppler. Indication for study: HX CAD CABG, Edema Cardiac Rhythm: Regular.Study quality: Technically limited. Final Impressions: 1. Technically limited exam. 2. Normal LV size, moderately increased wall thickness, mildly reduced global systolic function with an estimated EF of 45 - 50%. 3. Right ventricular cavity size is normal, global systolic RV function is moderately reduced. 4. Normal left atrium size. 5. The aortic valve is trileaflet and sclerotic, no stenosis and no regurgitation. 6. The mitral valve is sclerotic, trace mitral regurgitation. 7. Tricuspid valve is normal, regurgitation is not evident tricuspid regurgitation. 8. No pericardial effusion. Chamber Sizes and Function Normal left ventricular size, moderately increased wall thickness, mildly reduced global systolic function with an estimated EF of 45 - 50%. No resting regional wall motion abnormality visualized. Left atrial size is normal. Left atrial pressure is normal. Right ventricular cavity size is normal, global systolic RV function is moderately reduced. RV wall thickness is normal. The right atrium is normal. Right atrial volume index is 8 ml/m . Right atrial area is 8 cm . The pulmonary artery is of normal size and origin. The sinus of Valsalva is normal sized. The ascending aorta is normal sized. Valves, RV Pressures and Diastolic Function The aortic valve is trileaflet and sclerotic, no stenosis and no regurgitation. The mitral valve is sclerotic, trace mitral regurgitation. Spectral Doppler shows Grade 1 pattern of LV diastolic filling. The tricuspid valve is normal in structure, regurgitation is not evident tricuspid regurgitation. The pulmonic valve is normal. No pulmonary regurgitation. Masses, Effusion, Shunts There is no pericardial effusion. The inferior vena cava is normal sized, respiratory size variation greater than 50%. No left to right shunting was detected by limited color flow Doppler interrogation of the interatrial septum. MEASUREMENTS AND CALCULATIONS 2-D Measurements and LV Function: LVID (d) 2.5 cm LV FS% (2D) 37 % LVID (s) 1.6 cm LVOT diameter 1.8 cm IVS (d) 1.5 cm HR 79 bpm LVPW (d) 1.6 cm LA Vol index 19 ml/m2 Ao Sinus 2.9 cm RA Vol index 8 ml/m2 Ao Sinus ULN 3.7 cm * RA area 8 cm Asc Ao 2.3 cm RV Basal Diam 2.4 cm Asc Ao ULN 4.0 cm * LA 3.4 cm * Input age outside of range, reported values correspond to Age = 80 Diastology: Mitral Tissue Doppler Pulmonary veins E Peak 1.1 m/s e', Septum 0.06 m/s Pulm s 54.2 cm/s A Peak 1.2 m/s e', Lateral 0.09 m/s Pulm d 38.9 cm/s E/A 0.9 E/e' Average 15.17 Pulm s/d ratio 1.39 DT 324 msec Aortic Valve: Vmax 1.5 m/s BISI (V) 1.42 cm VTI 0.34 m BISI (I) 1.42 cm LVOT V max 0.8 m/s Max PG 9 mmHg LVOT VTI 0.19 m Mean PG 6 mmHg SV 48 ml Dim Index 0.55 SV index 28 ml/m CO 3.8 l/min CI 2.2 l/min/m Mitral Valve: MVA 2.3 cm MV P 1/2 94 msec MV Mean G 4 mmHg MV VTI 0.41 m Tricuspid Valve and estimated PA pressures: TAPSE 1.3 cm Pulmonic Valve: PV AT 94 msec . This study was interpreted by an [facility] accredited facility. CC: [facility] ([facility]) [facility]. Final Procedure Note Ania Rogers, [facility] - 10/04/2024 ECHOCARDIOGRAM GEETA HORNER : 1940 84 years Study Date: 10/04/2024 2:43:45 PM Gender: F BP: 148/77 mmHg Height: 155.00 cm BSA: 1.71 m Weight: 72.00 kg Tech: [facility] Referring MD: AMRIK SPEAR Site: [facility] Reading Location: Mobile-OP Patient Location: Outpatient. Procedure: 2D, Color Doppler and Spectral Doppler. Indication for study: HX CAD CABG, Edema Cardiac Rhythm: Regular.Study quality: Technically limited. Final Impressions: 1. Technically limited exam. 2. Normal LV size, moderately increased wall thickness, mildly reducedglobal systolic function with an estimated EF of 45 - 50%. 3. Right ventricular cavity size is normal, global systolic RV functionis moderately reduced. 4. Normal left atrium size. 5. The aortic valve is trileaflet and sclerotic, no stenosis and noregurgitation. 6. The mitral valve is sclerotic, trace mitral regurgitation. 7. Tricuspid valve is normal, regurgitation is not evident tricuspidregurgitation. 8. No pericardial effusion. Chamber Sizes and Function Normal left ventricular size, moderately increased wall thickness, mildlyreduced global systolic function with an estimated EF of 45 - 50%. Noresting regional wall motion abnormality visualized. Left atrial size isnormal. Left atrial pressure is normal. Right ventricular cavity size isnormal, global systolic RV function is moderately reduced. RV wallthickness is normal. The right atrium is normal. Right atrial volume indexis 8 ml/m . Right atrial area is 8 cm . The pulmonary artery is ofnormal size and origin. The sinus of Valsalva is normal sized. Theascending aorta is normal sized. Valves, RV Pressures and Diastolic Function The aortic valve is trileaflet and sclerotic, no stenosis and noregurgitation. The mitral valve is sclerotic, trace mitral regurgitation.Spectral Doppler shows Grade 1 pattern of LV diastolic filling. Thetricuspid valve is normal in structure, regurgitation is not evidenttricuspid regurgitation. The pulmonic valve is normal. No pulmonaryregurgitation. Masses, Effusion, Shunts There is no pericardial effusion. The inferior vena cava is normal sized,respiratory size variation greater than 50%. No left to right shunting wasdetected by limited color flow Doppler interrogation of the interatrialseptum. MEASUREMENTS AND CALCULATIONS 2-D Measurements and LV Function: LVID (d) 2.5 cm LV FS% (2D) 37% LVID (s) 1.6 cm LVOT diameter1.8 cm IVS (d) 1.5 cm HR 79bpm LVPW (d) 1.6 cm LA Vol index 19ml/m2 Ao Sinus 2.9 cm RA Vol index 8ml/m2 Ao Sinus ULN 3.7 cm * RA area 8cm Asc Ao 2.3 cm RV Basal Diam2.4 cm Asc Ao ULN 4.0 cm * LA 3.4 cm * Input age outside of range, reported values correspond to Age = 80 Diastology: Mitral Tissue Doppler Pulmonary veins E Peak 1.1 m/s e', Septum 0.06 m/s Pulm s 54.2 cm/s A Peak 1.2 m/s e', Lateral 0.09 m/s Pulm d 38.9 cm/s E/A 0.9 E/e' Average 15.17 Pulm s/d ratio 1.39 DT 324 msec Aortic Valve: Vmax 1.5 m/s BISI (V) 1.42 cm VTI 0.34 m BISI (I) 1.42 cm LVOT V max 0.8 m/s Max PG 9 mmHg LVOT VTI 0.19 m Mean PG 6 mmHg SV 48 ml Dim Index 0.55 SV index 28 ml/m CO 3.8 l/min CI 2.2 l/min/m Mitral Valve: MVA 2.3 cm MV P 1/2 94 msec MV Mean G 4 mmHg MV VTI 0.41 m Tricuspid Valve and estimated PA pressures: TAPSE 1.3 cm Pulmonic Valve: PV AT 94 msec . This study was interpreted by an [facility] accredited facility. CC: [facility] ([facility]) [facility]. Final Amrik Spear MD ECHO ORD Final Result from Last 3 Months Insurance MEDICARE PART B HB ONLY MEDICARE PART A HB ONLY [place] ONLY Care Teams Manager Respiratory Relationship Specialty Start Date End Date Genevieve Ford MD [address] [place] [address] PCP - General Family Practice 10/13/23
--- OUTSIDE RECORDS SUMMARY | 2024-11-25 01:32 | XMS_ITS | Patient Health Record ---
Author Organization [facility] e Address [address] [place] [address] Care Team Providers Care Skiver Box Toe Name Role Phone Amrik Mendiola Primary Care Provider UnavailSarah Ray Unavailable [phone] Donal Lucas Unavailable [phone] Sarah Langley Unavailable [phone] Allergies No Known Allergies Reason For Referral Reason 1.20.25 UTI Pt wcb to sched Diagnosis 1 Frequent UTI (N39.0) Referral Organization [facility] Referring Provider First Name Amrik Referring Provider Last Name Marlena Referred Organization [facility] Referred Provider Sarah Parks Referred Address [address] [place], [place],[address],[place] Referred Provider Specialty Physician As sistant Referral Priority Routine Medications Medication SIG (Take, Route, Frequency, Duration) Notes Start Date End Date Status metFORMIN HCl 1000 MG 1 tablet with a me al Oral Once a day for 90 days Active Lisinopril 20 MG 1 tablet Oral Once a day for 90 days Active Metoprolol Succinate ER 25 MG Oral for [...] twice a day for 90 days Active Social History Tobacco Use: Social History Observation Description Date Details (start date - stop date) Never Smoker NA - NA Tobacco Control (Standard) Question Answer Notes Tobacco use: Nonsmoker Problems Problem Type SNOMED Code ICD Code Onset Dates Problem Status W/U Status Risk Notes Problem Urge incontinenc e (N39.41) Active confirmed Vital Signs Blood pressure diastolic 52 mm Hg 10/31/2024 Height 59.75 in 10/31/2024 Blood pressure systolic 120 mm Hg 10/31/2024 Weight 142.4 lbs 10/31/2024 BMI 28.04 kg/m2 10/31/2024 Encounters Encounter Location Date Provider Diagnosis [facility] [address] [place] [address] 10/31/2024 Donaldequan Monsalveford Urge incontinence N39.41 [facility] [address] [place] [address] [address] [place], [place] [id number] 05/25/2024 Sarah Tank [facility] [address] [place] [address] 10/31/2024 Donal Lucas [facility] [address] [place] [address] 11/06/2024 Donal Lucas Assessments Encounter Date Diagnosis (ICD Code) Assessment [...] note were transcribed by clint Noe. Dr. Lucas personally performed the history, physical exam and medical decision making; and confirmed the accuracy of the information in the transcribed note. A emergency communications operator was present. Authenticated by Dr. Lucas. Plan Of Treatment Next Appt Details Provider Name:Donal Ortega rd, 12/25/2024 11:00:00 AM, [address], [place], [address], Provider Name:Donal Ortega rd, 12/25/2024 12:15:00 PM, [address], [place], [address], Insurance Providers Payer Name Payer Address Payer Phone Subscriber Number Group Number Insured Name Patient Relationship to Insured Coverage Start Date Coverage End Date [employer] - (Client Bill) [address] [place] [address] [id number] Geeta Horner Self - patient is the insured Medicare (Ins. Bill) [address] [place], [place] [id number] Geeta Horner Self - patient is the insured 5 Medical (General) History Medical History History ICD Code Diabetes Arthritis Bladder infections breast cancer Surgical History Surgery Date(Month/Year) right mastectomy Legs, Veins
[2024-11-25 01:36] VITALS: BP 132/65; PULSE 75; RESP 16; TEMP 36.4; O2SAT 97
--- NOTE | 2024-11-25 01:59 | ED_ITS ---
HPI - General Adult General Time Seen by Provider: 01:59 Date Seen: 11/25/24 Chief complaint: Diarrhea Stated complaint: low blood sugar, diarrhea Time Seen by Provider: 11/25/24 01:59 Source: patient and family (son) History of Present Illness HPI narrative: Radha is a 84 yo female with a past medical history of hypertension, hyperlipidemia, diabetes who presents the emergency department by ambulance for evaluation of diarrhea. Patient lives in alone group home apartment. Presents tonight with complaint of diarrhea. Patient reports lots of diarrhea over the past 2 days. Patient describes the stool as staff brown stool, nonbloody. Patient reports 3 episodes today. Patient states that when she has an episode she has some gas followed by a soft stool in the large quantity in which she has been soaking her brief and displaying going up her back. Patient denies any abdominal pain, fever, chills, chest pain, shortness of breath. Denies any nausea, vomiting, dysuria. Patient denies any recent illnesses, no sick contacts, no recent antibiotics. Patient reports her last hospitalization was back around [facility]. Patient typically lives alone and walks with a walker. No other complaints. Related Data Home Medications ?Medication ?Instructions ?Recorded ?Confirmed aspirin 325 mg tablet 325 mg PO Q6H PRN 08/20/24 0 09/27/24 clopidogrel 75 mg tablet 75 mg PO DAILY 08/20/2409/01 sennosides 8.6 mg-docusate sodium 1 tab-cap PO DAILY P RN 08/20/24 09/27/24 50 mg tablet (Senna with Docusate Sodium) Previous Rx's ?Medication ?Instructions ?Recorded lisinopril 20 mg tablet 20 mg PO QDAY Hypertension # 90 tabs 02/23/24 lovastatin 20 mg tablet 20 mg PO BID #180 tabs 02/22 glipizide 5 mg tablet 5 mg PO BID DM #180 tabs metoprolol succinate 25 mg 50 mg (2 x 25 mg) PO DAILY 06/13/24 tablet,extended release 24 hr Hypertension #180 tabs metformin 1,000 mg tablet 1,000 mg PO BID #180 tabs furosemide 20 mg tablet (Lasix) 20 mg PO QAM #30 tabs 08/02/24 triamcinolone acetonide 0.1 % 1 applic topical BID #30 grams 08/30/24 topical cream Allergies Allergy/AdvReac Type Severity Reaction Status Date / Time pregabalin (From Lyrica) AdvReac Severe falls Verified 09/27/24 16:24 Review of Systems Narrative: Past medical history, past surgical history, medications, allergies, family history, and social history were reviewed with the patient. No additional pertinent items. A medically appropriate review of systems was performed with pertinent positives and negatives noted in HPI, all other systems negative. [facility] Medical History (Updated 11/25/24 @ 03:33 by Gina Justice MD) Rash ?R21 - Rash and other nonspecific skin eruption (ICD-10) Anemia of chronic renal failure, stage 3b ?N18.32 - Chronic kidney disease, stage 3b (ICD-10) ?D63.1 - Anemia in chronic kidney disease (ICD-10) Stage 3b chronic kidney disease ?N18.32 - Chronic kidney disease, stage 3b (ICD-10) Venous insufficiency (chronic) (peripheral) ?I87.2 - Venous insufficiency (chronic) (peripheral) (ICD-10) Neuropathy ?G62.9 - Polyneuropathy, unspecified (ICD-10) Health care directive on file ?Z78.9 - Other specified health status (ICD-10) UTI (urinary tract infection) ?N39.0 - Urinary tract infection, site not specified (ICD-10) Carotid stenosis ?I65.29 - Occlusion and stenosis of unspecified carotid artery (ICD-10) Macrocytosis ?D75.89 - Other specified diseases of blood and blood-forming organs (ICD-10) Edema ?R60.9 - Edema, unspecified (ICD-10) Unsteadiness ?R26.81 - Unsteadiness on feet (ICD-10) Gout ?M10.9 - Gout, unspecified (ICD-10) History of non-ST elevation myocardial infarction (NSTEMI) (02/23/17) ?I25.2 - Old myocardial infarction (ICD-10) History of right breast cancer (1984) ?Z85.3 - Personal history of malignant neoplasm of breast (ICD-10) Postmenopausal atrophic vaginitis ?N95.2 - Postmenopausal atrophic vaginitis (ICD-10) Diabetic neuropathy associated with type 2 diabetes mellitus ?E11.40 - Type 2 diabetes mellitus with diabetic neuropathy, unspecified (ICD-10) Leg swelling ?M79.89 - Other specified soft tissue disorders (ICD-10) Coronary artery disease ?I25.10 - Atherosclerotic heart disease of [place] coronary artery without angina pectoris (ICD-10) Peripheral vascular disease ?I73.9 - Peripheral vascular disease, unspecified (ICD-10) Diabetes mellitus type 2 in nonobese ?E11.9 - Type 2 diabetes mellitus without complications (ICD-10) Hypertension (11/21/08) ?I10 - Essential (primary) hypertension (ICD-10) Hyperlipidemia (11/21/08) ?E78.5 - Hyperlipidemia, unspecified (ICD-10) Degenerative joint disease (DJD) of lumbar spine ?M47.816 - Spondylosis without myelopathy or radiculopathy, lumbar region (ICD-10) Scoliosis (11/21/08) ?M41.9 - Scoliosis, unspecified (ICD-10) Surgical History History of right common carotid artery stent placement ?Z98.890 - Other specified postprocedural states (ICD-10) ?Z95.828 - Presence of other vascular implants and grafts (ICD-10) History of intravascular stent placement ?Z95.828 - Presence of other vascular implants and grafts (ICD-10) History of bladder surgery (02/24/21) ?Z98.890 - Other specified postprocedural states (ICD-10) History of hysterectomy for cancer (~1989) ?Z90.710 - Acquired absence of both cervix and uterus (ICD-10) 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) ?Z95.1 - Presence of aortocoronary bypass graft (ICD-10) History of right mastectomy (1984) ?Z90.11 - Acquired absence of right breast and nipple (ICD-10) Family History Skin cancer Sister Brother Colon cancer Son, Onset Age: 55 High cholesterol Mother Myocardial infarction Sister, Onset Age: 70 Breast cancer Sister Sister High blood pressure Sister Son Brother Mother Father Stroke Sister, Onset Age: 70 Social History Narrative: , retired [employer], lives in independent living, 3 adult kids Nonsmoker, quit 2014 before then 25 pack years No alcohol use What is your current living situation?: I presently have a place to live Problems where you live: no known problems Problems where you live details: n/a In the past 12 months, utilities in danger of being shut off: no In past 12 months, lack of transportation kept you from medical appts, meetings, work, or getting things needed for daily living: no In the past 12 mos, have been you worried that your food would run out before you had money to buy more?: never true In the past 12 mos, the food you bought just didn't last and you didn't have money to buy more?: never true Smoking Status: Former smoker Do you use any of these nicotine containing products: None Second hand tobacco smoke exposure: No How often do you have a drink containing alcohol: never AUDIT-C Alcohol total score: 0 Non-prescribed substance use: denies use How often does anyone, including family, friends and others, physically hurt you : never How often does anyone, including family, friends and others, insult or talk down to you: never How often does anyone, including family, friends and others, threaten you with harm: never How often does anyone, including family, friends and others, scream or curse at you: never service: No Exam Narrative: Exam Narrative: General: Afebrile, no acute distress HEENT: Normocephalic, atraumatic, conjunctiva normal. MMM Neck: non-tender, supple Cardio: regular rate. regular rhythm Resp: Normal work of breathing, no respiratory distress, lungs clear bilaterally , no wheezing, rhonchi, rales Chest/Back: no visual signs of trauma, no midline tenderness, no CVA tenderness Abdomen: soft, non distension, no tenderness, no peritoneal signs Neuro: alert and fully oriented. CN II-XII grossly intact. Grossly normal strength and sensation in all extremities. MSK: no deformities. Normal range of motion Integumentary/Skin: no rash visualized, normal color Psych: normal affect, normal behavior Const: Vital Signs, click to edit/add: Vital Signs - 24 hr 11/25/24 01:36 Temperature 97.5 F L Pulse Rate [Right Pulse Oximeter] 75 Respiratory Rate 16 Blood Pressure [Le ft Upper Arm] 132/65 Pulse Oximetry 97 Oxygen Delivery Me thod Room Air Course Vital Signs Vital signs: Initial Vital Signs Temperature 97.5 F L 11/25/24 01:36 Temperature Source Temporal Artery Scan 11/25/24 01:36 Pulse Rate 75 11/25/24 01:36 Pulse Rhythm Regular 11/25/24 01:36 Respiratory Rate 16 11/25/24 01:36 Blood Pressure 132/65 11/25/24 01:36 Blood Pressure Mean 87 11/25/24 01:36 Blood Pressure Position Semi-Fowlers 11/25/24 01:36 Pulse Oximetry 97 11/25/24 01:36 Oxygen Delivery Method Room Air 11/25/24 01:36 Vital Signs Temperature 97.5 F L 11/25/24 01:36 Pulse Rate 75 11/25/24 01:36 Respiratory Rate 16 11/25/24 01:36 Blood Pressure 132/65 11/25/24 01:36 Pulse Oximetry 97 11/25/24 01:36 Oxygen Delivery Method Room Air 11/25/24 01:36 Temperature 97.5 F L 11/25/24 01:36 Pulse Rate 75 11/25/24 01:36 Respiratory Rate 16 11/25/24 01:36 Blood Pressure 132/65 11/25/24 01:36 Pulse Oximetry 97 11/25/24 01:36 Oxygen Delivery Method Room Air 11/25/24 01:36 Medications Administered Medications: Discontinued Medications Generic Name Dose Route Start Last Admin Trade Name Freq PRN Reason Stop Dose Admin Sodium Chloride 1,000 mls @ 1,000 mls/hr 11/25/24 02:15 11/25/24 02:56 0.9 % Sodium Chloride 1000 Ml IV 11/25/24 03:14 1,000 mls/hr .Q1H PRAVIN Administration Medical Decision Making MDM Narrative Medical decision making narrative: Radha is a 84 yo female with a past medical history of hypertension, hyperlipidemia, diabetes who presents the emergency department by ambulance for evaluation of diarrhea. Upon arrival patient is not toxic appearing, afebrile, no recess. Patient hemodynamically stable vital signs within normal limits. Differential diagnosis includes but is not limited to viral illness versus colitis versus gastroenteritis versus nonspecific diarrhea among others. Upon arrival comprehensive labs were performed. Patient was treated with 1 L IV fluid bolus. Comprehensive labs remarkable for white blood cell count of 8.7, hemoglobin 10.1 (~ baseline), sodium mildly low at 0 130 however patient did receive 1 L normal saline IV fluid bolus, potassium 4.7, chloride 99, normal anion gap, creatinine 1.3, magnesium slightly low 1.4, no transaminitis. Overall patient is nontoxic appearing, no distress. Patient with no abdominal pain, abdominal exam is benign. Suspect likely viral illness versus colitis. At this time no emergent indication for hospitalization. Patient with no bowel movements in the emergency department. I discussed results at length with patient and son who feel comfortable with discharge home. Recommend continue supportive care, brat diet, encourage oral hydration, close outpatient follow-up with primary care provider strict return precautions discussed if high fever, development of abdominal pain, bloody stools, any worsening symptoms. Patient and the son understand agree with the plan. Medical Records Medical records reviewed: Yes I reviewed the patient's medical records Lab Data Lab results reviewed: Yes I reviewed the patient's lab results Labs: Lab Results 11/25/24 Range/Units 02:28 WBC 8.71 (4.50-11.00) K/uL RBC 3.11 L (4.00-5.20) m/uL Hgb 10.1 L (12.0-16.0) gm/dL Hct 31.0 L (33.0-51.0) % MCV 100 (80-100) fL MCH 33 (26-34) pg MCHC 33 (32-36) gm/dL RDW Coeff of [place] 13.2 (11.5-15.5) % Plt Count 215 (140-440) K/uL Neut % (Auto) 79.1 H (42.0-72.0) % Lymph % (Auto) 10.4 L (20-44) % [place] % (Auto) 8.0 (0.0-11.0) % Eos % (Auto) 1.8 (0.0-7.0) % Baso % (Auto) 0.5 (0.0-3.0) % Neut # (Auto) 6.90 (1.7-7.0) K/uL Lymph # (Auto) 0.90 (0.90-2.90) K/uL [place] # (Auto) 0.70 (0.00-0.90) K/UL Eos # (Auto) 0.16 (0.00-0.50) K/uL Baso # (Auto) 0.04 (0.00-0.30) K/uL Abs Immat Gran (auto) 0.02 (0.00-0.30) K/uL Imm/Tot Granulo (auto) 0.2 % Sodium 130 L (135-149) mmol/L Potassium 4.7 (3.6-5.1) mmol/L Chloride 99 (96-114) mmol/L Carbon Dioxide 22 (20-32) mmol/L Anion Gap 9 (7-15) mEq/L BUN 19 (7-30) mg/dL Creatinine 1.3 (0.5-1.5) mg/dL Estimated GFR 41 ml/min Glucose 78 (60-115) mg/dL Calcium 9.4 (8.4-10.6) mg/dL Magnesium 1.4 L (1.5-2.6) mg/dL Total Bilirubin 0.4 (0.1-1.5) mg/dL AST 27 (12-35) U/L ALT 11 (4-35) U/L Alkaline Phosphatase 69 (40-150) U/L Total Protein 7.1 (6.0-8.3) g/dL Albumin 3.9 (3.3-5.0) g/dL Discharge Plan Discharge Clinical Impression: Diarrhea Patient Disposition: Home, Self-Care Condition: Stable Additional Instructions: Please follow-up with your primary care provider in the next 3-5 days for further evaluation and follow-up. Please rest, please start with a soft/bland diet (bananas, rice, applesauce, toast, etc.) in slowly advance as tolerated. Please make sure you are drinking plenty of fluids. Return to the emergency department if he develops high fever, severe abdominal pain, bloody stools, or a ny worsening symptoms. It was a pleasure taking care of you today. We hope you feel better soon. Prescriptions: No Action triamcinolone acetonide 0.1 % cream 1 applic topical BID Qty: 30 0RF clopidogrel 75 mg tablet 75 mg PO DAILY aspirin 325 mg tablet 325 mg PO Q6H PRN sennosides-docusate sodium [Senna with Docusate Sodium] 8.6-50 mg tablet 1 tab-cap PO DAILY PRN lovastatin 20 mg tablet 20 mg PO BID Qty: 180 3RF lisinopril 20 mg tablet 20 mg PO QDAY Qty: 90 3RF glipizide 5 mg tablet 5 mg PO BID Qty: 180 3RF metoprolol succinate 25 mg tablet extended release 24 hr 50 mg PO DAILY Qty: 180 1RF metformin 1,000 mg tablet 1,000 mg PO BID Qty: 180 1RF furosemide [Lasix] 20 mg tablet 20 mg PO QAM Qty: 30 3RF Follow Up/Referrals: Amrik Mendiola MD [Primary Care Provider, Internal Medicine] Stand Alone Forms: [facility] Info Instructions
[2024-11-25 02:35] LABS: Hematocrit 31.0 % (33.0-51.0); Hemoglobin* 10.1 gm/dL (12.0-16.0); Immature Granulocytes Abs Auto 0.02 K/uL (0.00-0.30); Immature Granulocytes Pct Auto 0.2 %; Mean Corpuscular HGB Conc 33 gm/dL (32-36); Mean Corpuscular Hemoglobin 33 pg (26-34); Mean Corpuscular Volume 100 fL (80-100); RDW Coefficient of Variation % 13.2 % (11.5-15.5); Red Blood Count 3.11 m/uL (4.00-5.20); White Blood Count* 8.71 K/uL (4.50-11.00)
[2024-11-25 02:40] LABS: Lymphocytes Absolute Auto 0.90 K/uL (0.90-2.90); Slide Review Reflex No
[2024-11-25 02:47] LABS: Albumin* 3.9 g/dL (3.3-5.0); Chloride* 99 mmol/L (96-114); Sodium* 130 mmol/L (135-149)
[2024-11-25 02:48] LABS: Potassium* 4.7 mmol/L (3.6-5.1)
[2024-11-25 02:50] LABS: Alanine Aminotransferase* 11 U/L (4-35); Alkaline Phosphatase* 69 U/L (40-150); Anion Gap 9 mEq/L (7-15); Aspartate Amino Transferase* 27 U/L (12-35); Bilirubin Total* 0.4 mg/dL (0.1-1.5); Blood Urea Nitrogen* 19 mg/dL (7-30); Carbon Dioxide* 22 mmol/L (20-32); Creatinine* 1.3 mg/dL (0.5-1.5); Estimated Glomerular Filt Rate 41 ml/min; Total Protein* 7.1 g/dL (6.0-8.3)
[2024-11-25 02:51] LABS: Calcium* 9.4 mg/dL (8.4-10.6); Glucose* 78 mg/dL (60-115)
== END 2024-11-25 04:01 | disposition home or self-care (01) ==
PROVIDERS: Emergency Provider Emergency Medicine; PCP Internal Medicine
DX: R19.7 Diarrhea, unspecified (principal)
CPT/HCPCS: 36415; 80053; 83735; 85025; 99283; 99285; J7030

== ENCOUNTER 2024-11-27 05:23 | Outpatient (CLI) | payer MEDICARE, BC, SELFPAY | END 2024-11-27 05:24 | disposition home or self-care (01) | PROVIDERS: PCP Internal Medicine; Visit Provider Family Medicine | DX: R19.7 Diarrhea, unspecified (principal) | CPT/HCPCS: A0425; A0429 ==

== ENCOUNTER 2024-11-27 05:39 | Observation (INO) | payer MEDICARE, BC, SELFPAY ==
--- OUTSIDE RECORDS SUMMARY | 2024-10-31 08:00 | XMS_ITS ---
Author Organization [facility] e Address [address] [place] [address] Care Team Providers Care Resaw Operator Name Role Phone JoDora cooperolph Primary Care Provider Sarah Torres Unavailable [phone] Donal Haddad Unavailable [phone] Allergies No Known Allergies REASON FOR VISIT Bladder Sling, OK to bare weight, No Q/C, GV, SMA Medications Medication SIG (Take, Route, Frequency, Duration) Notes Start Date End Date Status Metoprolol Succinate ER 25 MG Oral for 90 Days Active glipiZIDE 5 MG 1 tablet 30 minutes before breakfast Oral twice a day for 90 days Active Furosemide 20 MG 1 tablet Oral Once a day for 30 days Active Clopidogrel Bisulfate 75 MG 1 tablet Ora l Once a day for 90 days Active Lovastatin 20 MG 1 tablet with the ev ening meal Oral twice a day for 90 days Active metFORMIN HCl 1000 MG 1 tablet with a me al Oral Once a day for 90 days Active Lisinopril 20 MG 1 tablet Oral Once a day for 90 days Active Social History Tobacco Use: Social History Observation Description Date Details (start date - stop date) Never Smoker NA - NA Tobacco Control (Standard) Question Answer Notes Tobacco use: Nonsmoker Problems Problem Type SNOMED Code ICD Code Onset Dates Problem Status W/U Status Risk Notes Problem Urge incontinence of urine ([id number]) Urge incontinence (N39.41) Active confirmed Vital Signs Blood pressure systolic 120 mm Hg 11/01/19 25 Blood pressure diastolic 52 mm Hg 025 Height 59.75 in 10/31/2024 Weight 142.4 lbs 10/31/2024 BMI 28.04 kg/m2 10/31/2024 Encounters Encounter Location Date Provider Diagnosis [facility] [address] [place] [address] 10/31/2024 Donal Haddad Urge incontinence N39.41 Assessments Encounter Date Diagnosis (ICD Code) Assessment Notes Treatment Notes Treatment Clinical Notes Section Notes 10/31/2024 Urge incontinence (ICD-10 - N39.41) 84 yo F with urge incontinence. As she is an older woman, I will examine her the day of her Urodynamics to limit the amount of times she needs to undress. Urge incontinence is the result of inappropriate nerve signaling to the bladder which triggers bladder spasms and ultimately results in urgency and/or incontinence. She understands. For her urge incontinence, treatment options can include Urostym pelvic floor therapy, medication, cystoscopic Botox, tibial nerve stimulation, or the InterStim device. I explained to her that a pubovaginal sling is NOT meant to treat urge incontinence. Slings are meant to treat stress incontinence. I additionally made her aware that Furosemide may be exacerbating her symptoms as this is a diuretic and can make her urinate more frequently. She is likely on this medication due to high blood pressure. I recommend that she pursue Urodynamics testing to better understand the functioning of her bladder. She is agreeable to this. She will follow up with me on the same day of her urodynamics test. 10/31/2024 Other Total face to face time is 45minutes, with > 50% of time spent in counseling regarding diagnosis, risks and benefits of various treatment plans and expected outcomes., Portions of this note were transcribed by clint Noe. Dr. Haddad personally performed the history, physical exam and medical decision making; and confirmed the accuracy of the information in the transcribed note. A buck presser was present. Authenticated by Dr. Haddad. Plan Of Treatment Treatment Notes Assessment Notes Urge incontinence 84 yo F with urge incontinence. As she is an older woman, I will examine her the day of her Urodynamics to limit the amount of times she needs to undress. Urge incontinence is the result of inappropriate nerve signaling to the bladder which triggers bladder spasms and ultimately results in urgency and/or incontinence. She understands. For her urge incontinence, treatment options can include Urostym pelvic floor therapy, medication, cystoscopic Botox, tibial nerve stimulation, or the InterStim device. I explained to her that a pubovaginal sling is NOT meant to treat urge incontinence. Slings are meant to treat stress incontinence. I additionally made her aware that Furosemide may be exacerbating her symptoms as this is a diuretic and can make her urinate more frequently. She is likely on this medication due to high blood pressure. I recommend that she pursue Urodynamics testing to better understand the functioning of her bladder. She is agreeable to this. She will follow up with me on the same day of her urodynamics test. Other Total face to face time is 45minutes, with > 50% of time spent in counseling regarding diagnosis, risks and benefits of various treatment plans and expected outcomes., Portions of this note were transcribed by clint Noe. Dr. Haddad personally performed the history, physical exam and medical decision making; and confirmed the accuracy of the information in the transcribed note. A buck presser was present. Authenticated by Dr. Hadadd. Next Appt Details Follow Up: prn, Reason: Provider Name:Donal Ortega rd, 12/25/2024 11:00:00 AM, [address] [place], [address], Provider Name:Donal Ortega rd, 12/25/2024 12:15:00 PM, [address], [place], [address], Progress Notes * ABBIE Geeta CrowderOB:[birth year] (84 yo F)Acc No.[id number]:10/31/2024 Patient: Brian BLOODkie Joseph Provider: Teo HADDAD MD :1940 A ge:84 Y S ex:Female Date:10/31/2024 Address:[address] [place] [address], [address] [place] [id number] Pcp:Amrik Mendiola Subjective: * Chief Complaints: * B ladder Sling, OK to bare weightNo Q/CGV, SMA * HPI: * General: Geeta is an 84 yo F presenting today for a bladder consult. Today 10/31 Geeta reports experiencing urinary incontinence. She typically leaks with urgency. She experiences nocturia every 2 hours. After urinating, she will not have an urge to go right away. She will doze off then wake up again to urinate. She is unsure if she empties her bladder fully. She denies urinary leakage with sneezing, coughing, and physical activity. She has difficulty evacuating her stool. She denies splinting. She has interest in the pubovaginal sling. She has never tried medication for OAB/urge incontinence. D epression Screening: PHQ-9 L ittle interest or pleasure in doing things?Not at all F eeling down, depressed, or hopeless N ot at all T rouble falling or staying asleep, or sleeping too much N early every day F eeling tired or having little energy N ot at all P oor appetite or overeating N ot at all F eeling bad about yourself or that you are a failure, or have let yourself or your family down N ot at all T rouble concentrating on things, such as reading the newspaper or watching television N ot at all M oving or speaking so slowly that other people could have noticed; or the opposite, being so fidgety or restless that you have been moving around a lot more than usual N ot at all T houghts that you would be better off or of hurting yourself in some way N ot at all T otal Score 3 I nterpretation M inimal Depression * ROS: A ll Other Systems: Review of Systems (ROS) S ee HPI for details. 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 B irth Control: M enopause. S exual Activity N ot currently sexually active. S exually Tranmitted Disease (STD) N one. * OB History: G PAL G 3P3. P regnancy # 1: 1 959, normal spontaneous vaginal delivery (), Male. P regnancy # 2: 1 962, normal spontaneous vaginal delivery (), Male. P regnancy # 3: 1 964, normal spontaneous vaginal delivery (), Male. * Surgical History: r ight mastectomy Legs, Veins * Hospitalization/Major Diagno stic Procedure: D enies Past Hospitalization * Family History: Self: Breast Cancer. * Social History: T obacco Use: T obacco Control (Standard) T obacco use: N onsmoker D rugs/Alcohol: C affeine I ntake: N one Do you smoke marijuana?: Denies. Do you drink alcohol?: No. M iscellaneous: E motional Abuse: None. Physical Abuse: None. Domestic violence: none. Exercise: none. Marital status: . Sexual abuse: none. Verbal abuse: none. * Medications: T akingLisinopril 20 MG Tablet 1 tablet Oral Once a day metFORMIN HCl 1000 MG Tablet 1 tablet with a meal Oral Once a day Furosemide 20 MG Tablet 1 tablet Oral Once a day Clopidogrel Bisulfate 75 MG Tablet 1 tablet Oral Once a day Metoprolol Succinate ER 25 MG Tablet Extended Release 24 Hour Oral glipiZIDE 5 MG Tablet 1 tablet 30 minutes before breakfast Oral twice a day Lovastatin 20 MG Tablet 1 tablet with the evening meal Oral twice a day Medication List reviewed and reconciled with the patientTaking Lisinopril 20 MG Tablet 1 tablet Oral Once a day Taking metFORMIN HCl 1000 MG Tablet 1 tablet with a meal Oral Once a day Taking Furosemide 20 MG Tablet 1 tablet Oral Once a day Taking Clopidogrel Bisulfate 75 MG Tablet 1 tablet Oral Once a day Taking Metoprolol Succinate ER 25 MG Tablet Extended Release 24 Hour Oral Taking glipiZIDE 5 MG Tablet 1 tablet 30 minutes before breakfast Oral twice a day Taking Lovastatin 20 MG Tablet 1 tablet with the evening meal Oral twice a day Medication List reviewed and reconciled with the patient * Allergies: N .K.D.A.no[Allergies Verified] Objective: * Vitals: H t: 59.75 in, Wt:142.4lbs, BP:120/52mm Hg, BMI:28.04Index. * Examination: * General Examination: GENERAL APPEARANCE: i n no acute distress, alert, well hydrated, in no distress. HEAD n ormocephalic, atraumatic. PSYCH: a lert, oriented, judgement and insight good, mood/affect full range, speech clear. T roel spent in consultation. Her exam will be deferred for the day of Urodynamics. Assessment: * Assessment: 1. U rge incontinence - N39.41 (Primary) Plan: * Treatment: 2. O thers Notes: Total face to face time is 45minutes, with > 50% of time spent in counseling regarding diagnosis, risks and benefits of various treatment plans and expected outcomes., Portions of this note were transcribed by clint Noe. Dr. Haddad personally performed the history, physical exam and medical decision making; and confirmed the accuracy of the information in the transcribed note. A buck presser was present. Authenticated by Dr. Haddad. * Procedure Codes: 9 6127 BRIEF EMOTIONAL/BEHAV ASSMT, Modifiers: 59 * Preventive Medicine: YOUR PREVENTIVE WELLNESS PLAN: B reast Cancer Screening (Mammogram): My last mammogram was done on: U nknown C ervical Cancer Screening (Pap Smear): My last Pap smear was done on: U nknown O steoporosis Screening (Bone Density Measurement): My last bone density was done on: U nknown C olorectal Cancer Screening: Last Done Colonoscopy U nknown D epression Screening: Screening for depression was last done on: 10/31/2024 * Follow Up: p rn * Images: Billing Information: * Visit Code: 01878 Office Visit, Est Pt., Level 5. * Procedure Codes: 24422 BRIEF EMOTIONAL/BEHAV ASSMT. Modifiers: 59 * Sign off status: Completed true * Provider: Teo HADDAD MD Date: 10/31/2024 Generated for Justin watkins/Ashley/eTransmitting on: 11/27/2024 05:42 AM CDT History and Physical Notes * HPI (History of Present Illness) Category Sub-Category Detail Notes Category Not es Depression Screening PHQ-9 Little inte rest or pleasure in doing things: Not at all Feeling down, depressed, or hopeless: No t at all Trouble falling or staying asleep, or sl eeping too much: Nearly every day Feeling tired or having little energy: N ot at all Poor appetite or overeating: Not at all Feeling bad about yourself o r that you are a failure, or have let yourself or your family down: Not at all Trouble concentrating on thi ngs, such as reading the newspaper or watching television: Not at all Moving or speaking so slowly that other people could have noticed; or the opposite, being so fidgety or restless that you have been moving around a lot more than usual: Not at all Thoughts that you would be b maria r off or of hurting yourself in some way: Not at all Total Score: 3 Interpretation: Minimal Depression *General Geeta is an 84 yo F presenting today for a bladder consult. Today 10/31 Geeta reports experiencing urinary incontinence. She typically leaks with urgency. She experiences nocturia every 2 hours. After urinating, she will not have an urge to go right away. She will doze off then wake up again to urinate. She is unsure if she empties her bladder fully. She denies urinary leakage with sneezing, coughing, and physical activity. She has difficulty evacuating her stool. She denies splinting. She has interest in the pubovaginal sling. She has never tried medication for OAB/urge incontinence. Examination Category Sub-Category Detail Notes Category Not es *General Examination GENERAL APPEARANCE: in no acute distress, alert, well hydrated, in no distress Time spent in consultation. Her exam will be deferred for the day of Urodynamics. HEAD normocephalic, atrau matic PSYCH: alert, oriented, iesha gement and insight good, mood/affect full range, speech clear
[2024-11-27] VITALS (14 sets, daily range): BP systolic 122–176; BP diastolic 53–85; PULSE 61–80; RESP 16–18; TEMP 36.4–36.8; O2SAT 96–100; BMI 23.8
--- OUTSIDE RECORDS SUMMARY | 2024-11-27 05:42 | XMS_ITS | Patient Health Record ---
Author Organization [facility] e Address [address] [place] [address] Care Team Providers Care Pickling Tank Operator Name Role Phone Amrik Mendiola Primary Care Provider UnavailSarah Ray Unavailable [phone] Donal Lucas Unavailable [phone] Sarah Langley Unavailable [phone] Allergies No Known Allergies Reason For Referral Reason 1.20.25 UTI Pt wcb to sched Diagnosis 1 Frequent UTI (N39.0) Referral Organization [facility] Referring Provider First Name Amrik Referring Provider Last Name Marlena Referred Organization [facility] Referred Provider Sarah Parks Referred Address [address] [place], [place],[address],[place] Referred Provider Specialty Physician As sistant Referral [...] Risk Notes Problem Urge incontinence of urine ([id number]) Urge incontinence (N39.41) Active confirmed Vital Signs Blood pressure diastolic 52 mm Hg 10/31/2024 Height 59.75 in 10/31/2024 Blood pressure systolic 120 mm Hg 10/31/2024 Weight 142.4 lbs 10/31/2024 BMI 28.04 kg/m2 10/31/2024 Encounters Encounter Location Date Provider Diagnosis [facility] [address] [place] [address] 10/31/2024 Donal Lucas Urge incontinence N39.41 [facility] [address] [place], [place] [id number] 05/25/2024 Sarah Tank [facility] [address] [place] [address] 10/31/2024 Donal Lucas [facility] [address] [place] [address] 11/06/2024 Donal Lucas Assessments Encounter Date Diagnosis [...] the information in the transcribed note. A airfreight operations agent was present. Authenticated by Dr. Lucas. Plan Of Treatment Next Appt Details Provider Name:Donal Ortega rd, 12/25/2024 11:00:00 AM, [address] [place], [address], Provider Name:Donal Ortega rd, 12/25/2024 12:15:00 PM, [address], [place], [address], Insurance Providers Payer Name Payer Address Payer Phone Subscriber Number Group Number Insured Name Patient Relationship to Insured Coverage Start Date Coverage End Date BCBS - (Client Bill) [address] [place] [address] [id number] Geeta Horner Self - patient is the insured Medicare (Ins. Bill) [address] [place], [place] [id number] Geeta Horner Self - patient is the insured 5 Medical (General) History Medical History History ICD Code Diabetes Arthritis Bladder infections breast cancer Surgical History Surgery Date(Month/Year) right mastectomy Legs, Veins
--- OUTSIDE RECORDS SUMMARY | 2024-11-27 05:42 | XMS_ITS | Clinical Summary ---
Author Organization [employer] [facility] Address [address] [place] [id number] Care Team Providers Care Inspector Hairspring Truing Name Role Phone Genevieve Ford MD Primary [...] unspecified vessel or lesion type, unspecified whether [place] or transplanted heart Take 1 tablet by [...] Each 3 12/30/19 22 Active Dexcom G6 [place] Machine Operator for continuous blood glucose monitor (CGM)Indications:T ype 2 diabetes mellitus without complication, without long-term current use of insulin (HC) To be used to read blood sugars follow clinical fellow directions. 1 Each 12/30/19 22 Active torsemide [...] Overview: Added automatically from request for surgery [id number] Edema of lower extremity 03/11/2018 Arteriosclerosis of [...] Description 10/04/2024 3:00 PM CDT Ancillary Procedure [facility] [address] [place] [address] from Last 3 Months Immunizations Immunization Administration [...] on file Legal Sex Female 5:48 AM GROUND INTELLIGENCE OFFICER Gender Identity Not on file Sexual Orientation [...] Comments Blood Pressure 147/73 07/03/2022 1:02 PM GROUND INTELLIGENCE OFFICER Pulse 71 07/03/2022 1:02 PM GROUND INTELLIGENCE OFFICER Temperature 37.1 C (98.7 F) 12/27/2017 7:50 AM CDT Respiratory Rate - - Oxygen Saturation 99% 07/03/2022 1:02 PM GROUND INTELLIGENCE OFFICER Inhaled Oxygen Concentration - - Weight 68.7 kg (151 lb 6.4 oz) 07/03/2022 1:02 P M GROUND INTELLIGENCE OFFICER Height 156.9 cm (5' 1.77) 07/03/2022 1:02 PM CS T Body Mass Index 27.9 07/03/2022 1:02 PM GROUND INTELLIGENCE OFFICER Plan of Treatment Health Maintenance Due Date [...] Tech: SHAAN Referring MD: AMRIK SPEAR Site: [facility] Reading Location: Mobile-OP Patient Location: [...] . This study was interpreted by an [facility] accredited facility. CC: [facility] ([facility]) [facility]. Final Procedure Note Ania Rogers, [facility] - 10/04/2024 ECHOCARDIOGRAM GEETA HORNER : 1940 84 years Study Date: 10/04/2024 2:43:45 PM Gender: F BP: 148/77 mmHg Height: 155.00 cm BSA: 1.71 m Weight: 72.00 kg Tech: [facility] Referring MD: AMRIK SPEAR Site: [facility] Reading Location: Mobile-OP Patient Location: [...] interpreted by an [facility] accredited facility. CC: [facility] ([facility]) [facility]. Final Amrik Spear MD ECHO ORD Final Result from Last 3 Months Insurance MEDICARE PART B HB ONLY MEDICARE PART A HB ONLY [employer] [place] BLUE MR PB ONLY Care Teams Inspector Hairspring Truing Relationship Specialty Start Date End Date Genevieve Ford MD [address] [place] [address] PCP - General Family Practice 10/13/23
--- NOTE | 2024-11-27 06:15 | ED.GENADULT ---
HPI - General Adult General Chief complaint: Diarrhea Stated complaint: Diarrhea Time Seen by Provider: 11/27/24 06:15 History of Present Illness HPI narrative: Patient returns to [facility] ER with c/o continued diarrhea and not being able to take care of herself. Patient states was in the ER for diarrhea on Wednesday night. Patient states she has diarrhea all over her house and cannot clean herself up. Patient has dried, caked on stool to her bilat legs, feet, perineum, abdomen and arms/hands. Patient has two red areas to skin to groin folds and an open red sore to left labia. EMS states concerns for safety at home. Patient denies fever, nausea, vomiting. Patient states she blew her nose on Wednesday morning and had brown mucous with blood on it. Patient lives in a senior apartment complex with no scheduled home care services. Patient's son, Fernando, called as asked patient to be screened for H. pylori, C. Diff, COVID, and has concerns that her glimepiride is making her blood sugar too low. Patient is alert and oriented. 84-year-old woman presenting to the emergency department via EMS now with 4th day of copious diarrhea. Is increasingly weak. She is thirsty. Has been able to manage cares. No noted fever. No vomiting. No recent antibiotics. No abdominal pain. Lives alone in senior apartment. She has not noted blood in this diarrhea but did have a bloody nose today she thinks. History of diabetes, hypertension, peripheral neuropathy and unsteadiness. Son is concerned about unopposed glimepiride effect. Some time is spent cleaning her up. Related Data Home Medications ?Medication ?Instructions ?Recorded ?Confirmed aspirin 325 mg tablet 325 mg PO Q6H PRN 08/20/24 09/27/24 clopidogrel 75 mg tablet 75 mg PO DAILY 08/20/24 09/27/24 sennosides 8.6 mg-docusate sodium 1 tab-cap PO DAILY PRN 08/20/24 09/27/24 50 mg tablet (Senna with Docusate Sodium) Previous Rx's ?Medication ?Instructions ?Recorded lisinopril 20 mg tablet 20 mg PO QDAY Hypertension #90 tabs 02/23/24 lovastatin 20 mg tablet 20 mg PO BID #180 tabs 02/23/24 glipizide 5 mg tablet 5 mg PO BID DM #180 tabs 02/24/24 metoprolol succinate 25 mg 50 mg (2 x 25 mg) PO DAILY 06/13/24 tablet,extended release 24 hr Hypertension #180 tabs metformin 1,000 mg tablet 1,000 mg PO BID #180 tabs 06/21/24 furosemide 20 mg tablet (Lasix) 20 mg PO QAM #30 tabs 08/02/24 triamcinolone acetonide 0.1 % 1 applic topical BID #30 grams 08/30/24 topical cream Allergies Allergy/AdvReac Type Severity Reaction Status Date / Time pregabalin (From Lyrica) AdvReac Severe falls Verified 09/27/24 16:24 Review of Systems Status of ROS: Reports: 6 or more systems reviewed and unremarkable except as noted in History and below [facility] Medical History Rash ?R21 - Rash and other nonspecific skin eruption (ICD-10) Anemia of chronic renal failure, stage 3b ?N18.32 - Chronic kidney disease, stage 3b (ICD-10) ?D63.1 - Anemia in chronic kidney disease (ICD-10) Stage 3b chronic kidney disease ?N18.32 - Chronic kidney disease, stage 3b (ICD-10) Venous insufficiency (chronic) (peripheral) ?I87.2 - Venous insufficiency (chronic) (peripheral) (ICD-10) Neuropathy ?G62.9 - Polyneuropathy, unspecified (ICD-10) Health care directive on file ?Z78.9 - Other specified health status (ICD-10) UTI (urinary tract infection) ?N39.0 - Urinary tract infection, site not specified (ICD-10) Carotid stenosis ?I65.29 - Occlusion and stenosis of unspecified carotid artery (ICD-10) Macrocytosis ?D75.89 - Other specified diseases of blood and blood-forming organs (ICD-10) Edema ?R60.9 - Edema, unspecified (ICD-10) Unsteadiness ?R26.81 - Unsteadiness on feet (ICD-10) Gout ?M10.9 - Gout, unspecified (ICD-10) History of non-ST elevation myocardial infarction (NSTEMI) (02/23/17) ?I25.2 - Old myocardial infarction (ICD-10) History of right breast cancer (1984) ?Z85.3 - Personal history of malignant neoplasm of breast (ICD-10) Postmenopausal atrophic vaginitis ?N95.2 - Postmenopausal atrophic vaginitis (ICD-10) Diabetic neuropathy associated with type 2 diabetes mellitus ?E11.40 - Type 2 diabetes mellitus with diabetic neuropathy, unspecified (ICD-10) Leg swelling ?M79.89 - Other specified soft tissue disorders (ICD-10) Coronary artery disease ?I25.10 - Atherosclerotic heart disease of [place] coronary artery without angina pectoris (ICD-10) Peripheral vascular disease ?I73.9 - Peripheral vascular disease, unspecified (ICD-10) Diabetes mellitus type 2 in nonobese ?E11.9 - Type 2 diabetes mellitus without complications (ICD-10) Hypertension (11/21/08) ?I10 - Essential (primary) hypertension (ICD-10) Hyperlipidemia (11/21/08) ?E78.5 - Hyperlipidemia, unspecified (ICD-10) Degenerative joint disease (DJD) of lumbar spine ?M47.816 - Spondylosis without myelopathy or radiculopathy, lumbar region (ICD-10) Scoliosis (11/21/08) ?M41.9 - Scoliosis, unspecified (ICD-10) Surgical History History of right common carotid artery stent placement ?Z98.890 - Other specified postprocedural states (ICD-10) ?Z95.828 - Presence of other vascular implants and grafts (ICD-10) History of intravascular stent placement ?Z95.828 - Presence of other vascular implants and grafts (ICD-10) History of bladder surgery (02/24/21) ?Z98.890 - Other specified postprocedural states (ICD-10) History of hysterectomy for cancer (~1989) ?Z90.710 - Acquired absence of both cervix and uterus (ICD-10) 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) ?Z95.1 - Presence of aortocoronary bypass graft (ICD-10) History of right mastectomy (1984) ?Z90.11 - Acquired absence of right breast and nipple (ICD-10) Family History Sister Myocardial infarction, Onset Age: 70 Breast cancer Skin cancer High blood pressure Sister Stroke, Onset Age: 70 Breast cancer Son Colon cancer, Onset Age: 55 High blood pressure Brother Skin cancer High blood pressure Mother High cholesterol High blood pressure Father High blood pressure Social History Narrative: , retired [employer], lives in independent living, 3 adult kids Nonsmoker, quit 2013 before then 25 pack years No alcohol use What is your current living situation?: I presently have a place to live Problems where you live: no known problems Problems where you live details: n/a In the past 12 months, utilities in danger of being shut off: no In past 12 months, lack of transportation kept you from medical appts, meetings, work, or getting things needed for daily living: no In the past 12 mos, have been you worried that your food would run out before you had money to buy more?: never true In the past 12 mos, the food you bought just didn't last and you didn't have money to buy more?: never true Smoking Status: Former smoker Do you use any of these nicotine containing products: None Second hand tobacco smoke exposure: No How often do you have a drink containing alcohol: never AUDIT-C Alcohol total score: 0 Non-prescribed substance use: denies use How often does anyone, including family, friends and others, physically hurt you: never How often does anyone, including family, friends and others, insult or talk down to you: never How often does anyone, including family, friends and others, threaten you with harm: never How often does anyone, including family, friends and others, scream or curse at you: never service: No Exam Narrative: Exam Narrative: Pleasant. Eyes are bright. Responds quickly to questioning but does appear fatigued. Teeth are a little dry. Oropharynx is sticky. Heart in regular rate and rhythm. Is well-perfused moving all extremities without difficulty. There is some wrinkles in this skin her lower extremities is if as loss edema quickly here. There is still some feculent matter on some toenails. Heart in regular rate and rhythm. Lungs are clear. Abdomen is soft and diffusely mildly tender, sensitive. No peritoneal signs. Staff noted initiation of skin breakdown while cleaning up in inguinal areas and labia. Const: Vital Signs, click to edit/add: Vital Signs - 24 hr 11/27/24 05:40 11/27/24 06:04 11/27/24 06:50 Temperature 97.6 F Pulse Rate Pulse Rate [Right Pulse Oximeter] 72 Respiratory Rate 16 Blood Pressure 124/62 Blood Pressure [Le ft Upper Arm] 153/58 H Pulse Oximetry 99 99 Oxygen Delivery Me thod Room Air 11/27/24 06:56 11/27/24 07:01 11/27/24 07:17 Temperature Pulse Rate 61 62 62 Pulse Rate [Right Pulse Oximeter] Respiratory Rate Blood Pressure 167/64 H 176/64 H Blood Pressure [Le ft Upper Arm] Pulse Oximetry 99 97 96 Oxygen Delivery Me thod Documenting provider has reviewed patient's vital signs: yes Course Vital Signs Vital signs: Initial Vital Signs Pulse Oximetry 99 11/27/24 05:40 Vital Signs Pulse Oximetry 99 11/27/24 05:40 Temperature 97.6 F 11/27/24 06:04 Pulse Rate 62 11/27/24 07:17 Respiratory Rate 16 11/27/24 06:04 Blood Pressure 176/64 H 11/27/24 07:17 Pulse Oximetry 96 11/27/24 07:17 Oxygen Delivery Method Room Air 11/27/24 06:04 Medications Administered Medications: Discontinued Medications Generic Name Dose Route Start Last Admin Trade Name Freq PRN Reason Stop Dose Admin Sodium Chloride 1,000 mls @ 1,000 mls/hr 11/27/24 06:27 11/27/24 06:55 0.9 % Sodium Chloride 1000 Ml IV 11/27/24 07:26 1,000 mls/hr .Q1H ONE Administration Medical Decision Making MDM Narrative Medical decision making narrative: Concerns of an expressed by EMS as to the state of her apartment. Vulnerable adult paperwork will be filed. Does appear to be having difficulty caring for herself pending resolution of this recent illness. Does appear to be dehydrated yet again. Appears to be experiencing colitis but no blood in stool, or other nonspecific diarrhea. Would have concerns of fluid management, keeping up with hydration. IV will be initiated. Normal saline initially. Will attempt to collect stool for analysis. Pending chemistries. Blood sugar was noted to be 50. Given breakfast With weakness and persistent illness I think will need some time of convalescence in the hospital. I did discuss with our hospitalist who is thankfully accepting for admission. Medical Records Medical records reviewed: Yes I reviewed the patient's medical records Lab Data Lab results reviewed: Yes I reviewed the patient's lab results Labs: Lab Results 11/27/24 11/27/24 11/27/24 Range/Units 06:45 06:47 06:54 WBC 9.95 (4.50-11.00) K/uL RBC 3.64 L (4.00-5.20) m/uL Hgb 11.9 L (12.0-16.0) gm/dL Hct 35.8 (33.0-51.0) % MCV 98 (80-100) fL MCH 33 (26-34) pg MCHC 33 (32-36) gm/dL RDW Coeff of Bossman 13.2 (11.5-15.5) % Plt Count 239 (140-440) K/uL Neut % (Auto) 75.6 H (42.0-72.0) % Lymph % (Auto) 14.1 L (20-44) % [place] % (Auto) 9.0 (0.0-11.0) % Eos % (Auto) 0.8 (0.0-7.0) % Baso % (Auto) 0.4 (0.0-3.0) % Neut # (Auto) 7.50 H (1.7-7.0) K/uL Lymph # (Auto) 1.40 (0.90-2.90) K/uL [place] # (Auto) 0.90 (0.00-0.90) K/UL Eos # (Auto) 0.08 (0.00-0.50) K/uL Baso # (Auto) 0.04 (0.00-0.30) K/uL Abs Immat Gran (auto) 0.01 (0.00-0.30) K/uL Imm/Tot Granulo (auto) 0.1 % Sodium 133 L (135-149) mmol/L Potassium 4.4 (3.6-5.1) mmol/L Chloride 97 (96-114) mmol/L Carbon Dioxide 26 (20-32) mmol/L Anion Gap 10 (7-15) mEq/L BUN 14 (7-30) mg/dL Creatinine 1.3 (0.5-1.5) mg/dL Estimated GFR 41 ml/min Glucose 50 L (60-115) mg/dL Calcium 10.1 (8.4-10.6) mg/dL Total Bilirubin 0.7 (0.1-1.5) mg/dL Direct Bilirubin 0.1 (0.0-0.5) mg/dL AST 43 H (12-35) U/L ALT 12 (4-35) U/L Alkaline Phosphatase 77 (40-150) U/L C-Reactive Protein < 0.5 L (0.5-1.0) mg/dL Total Protein 8.4 H (6.0-8.3) g/dL Albumin 4.6 (3.3-5.0) g/dL SARS-CoV-2 (PCR) Negative SARS-CoV-2 (Negative) Influenza Type A (PCR) Negative PCR FLU A (Negative) Influenza Type B (PCR) Negative PCR FLU B (Negative) Lab Acknowledgement 11/27/24 Range/Units 08:02 WBC (4.50-11.00) K/uL RBC (4.00-5.20) m/uL Hgb (12.0-16.0) gm/dL Hct (33.0-51.0) % MCV (80-100) fL MCH (26-34) pg MCHC (32-36) gm/dL RDW Coeff of [place]man (11.5-15.5) % Plt Count (140-440) K/uL Neut % (Auto) (42.0-72.0) % Lymph % (Auto) (20-44) % [place] % (Auto) (0.0-11.0) % Eos % (Auto) (0.0-7.0) % Baso % (Auto) (0.0-3.0) % Neut # (Auto) (1.7-7.0) K/uL Lymph # (Auto) (0.90-2.90) K/uL [place] # (Auto) (0.00-0.90) K/UL Eos # (Auto) (0.00-0.50) K/uL Baso # (Auto) (0.00-0.30) K/uL Abs Immat Gran (auto) (0.00-0.30) K/uL Imm/Tot Granulo (auto) % Sodium (135-149) mmol/L Potassium (3.6-5.1) mmol/L Chloride (96-114) mmol/L Carbon Dioxide (20-32) mmol/L Anion Gap (7-15) mEq/L BUN (7-30) mg/dL Creatinine (0.5-1.5) mg/dL Estimated GFR ml/min Glucose (60-115) mg/dL Calcium (8.4-10.6) mg/dL Total Bilirubin (0.1-1.5) mg/dL Direct Bilirubin (0.0-0.5) mg/dL AST (12-35) U/L ALT (4-35) U/L Alkaline Phosphatase (40-150) U/L C-Reactive Protein (0.5-1.0) mg/dL Total Protein (6.0-8.3) g/dL Albumin (3.3-5.0) g/dL SARS-CoV-2 (PCR) (Negative) Influenza Type A (PCR) (Negative) Influenza Type B (PCR) (Negative) Lab Acknowledgement Test Added Discharge Plan Discharge Clinical Impression: Diarrhea, Dehydration Patient Disposition: Admitted As Observation Condition: Stable
[2024-11-27 07:08] LABS: Hematocrit 35.8 % (33.0-51.0); Hemoglobin* 11.9 gm/dL (12.0-16.0); Immature Granulocytes Abs Auto 0.01 K/uL (0.00-0.30); Immature Granulocytes Pct Auto 0.1 %; Lymphocytes Absolute Auto 1.40 K/uL (0.90-2.90); Mean Corpuscular HGB Conc 33 gm/dL (32-36); Mean Corpuscular Hemoglobin 33 pg (26-34); Mean Corpuscular Volume 98 fL (80-100); RDW Coefficient of Variation % 13.2 % (11.5-15.5); Red Blood Count 3.64 m/uL (4.00-5.20); White Blood Count* 9.95 K/uL (4.50-11.00)
[2024-11-27 07:20] LABS: Slide Review Reflex No
[2024-11-27 07:21] LABS: Albumin* 4.6 g/dL (3.3-5.0); Chloride* 97 mmol/L (96-114)
[2024-11-27 07:22] LABS: Potassium* 4.4 mmol/L (3.6-5.1); Sodium* 133 mmol/L (135-149)
[2024-11-27 07:24] LABS: Blood Urea Nitrogen* 14 mg/dL (7-30); Creatinine* 1.3 mg/dL (0.5-1.5); Estimated Glomerular Filt Rate 41 ml/min
[2024-11-27 07:25] LABS: Alanine Aminotransferase* 12 U/L (4-35); Alkaline Phosphatase* 77 U/L (40-150); Anion Gap 10 mEq/L (7-15); Aspartate Amino Transferase* 43 U/L (12-35); Bilirubin Direct* 0.1 mg/dL (0.0-0.5); Bilirubin Total* 0.7 mg/dL (0.1-1.5); Calcium* 10.1 mg/dL (8.4-10.6); Carbon Dioxide* 26 mmol/L (20-32); Glucose* 50 mg/dL (60-115); Total Protein* 8.4 g/dL (6.0-8.3)
[2024-11-27 07:27] LABS: PCR FLU A Negative PCR FLU A (Negative); PCR FLU B Negative PCR FLU B (Negative); SARS PCR* Negative SARS-CoV-2 (Negative)
[2024-11-27 09:37] LABS: Vitamin B12* < 159 pg/mL (243-894)
--- NOTE | 2024-11-27 11:40 | PC.SOCIAL ---
Social Work: Received call from [facility], stating they have received a [facility] report and requesting MD notes from ED visits on 11/25 and 11/27 be sent. Secure emailed ED notes from these two visits to [facility]. warm in worker to follow up as needed.
[2024-11-27] MEDS: METOPROLOL SUCCINATE (XL) 25 MG TAB 50 MG PO (12:21)
[2024-11-27] MEDS: CLOPIDOGREL 75 MG TABLET PO (12:21)
--- NOTE | 2024-11-27 12:34 | PM.IMHP1 ---
Assessment and Plan Assessment and plan (1) Weakness: Problem comment: Progressive weakness, acute on chronic with reports that she is not able to ambulate in the last few days with her current diarrheal illness Status: Acute (2) Urinary and bowel incontinence: Problem comment: Likely due to combination of factors, primarily current diarrhea and immobility. Status: Acute (3) Diarrhea: Problem comment: Initially had relatively severe diarrhea but this appears to be improving. C diff test is pending though no clinical risk factors for C diff infection. Uncertain whether she is still taking laxatives in the face of diarrhea. Continue to monitor. Imodium p.r.n.. Status: Acute (4) Stage 3b chronic kidney disease: Problem comment: -baseline CrCl 32, Cr 1.1 Status: Acute (5) B12 deficiency: Problem comment: I suspect this is clinically serious with longstanding subtherapeutic vitamin B12 level, longstanding macrocytic anemia, cognitive impairment and peripheral neuropathy. Initiate parental replacement Status: Acute (6) Cognitive impairment: Problem comment: Preston score in August 2024 was 20/30. Uncertain whether patient can cognitively manage her medications. Status: Acute (7) Diabetes mellitus type 2 in nonobese: Problem comment: Hemoglobin A1c was 5.5 in May 2024. Monitor glucose. Hold metformin while having diarrhea. Status: Chronic (8) Falls: Problem comment: PT and OT to evaluate. Status: Acute (9) Discharge planning issues: Problem comment: Concern over patient's ability to live independently due to leg weakness and falls and cognitive impairment. Ongoing assessment. Engage manager social and family to discuss options Status: Acute Plan Patient admitted to the hospital for ongoing evaluation and management of above problems and treatment of vitamin B12 deficiency. Plan of care discussed with the patient and her son Loyd. Will have son also bring in her home medications to review. Total Time Spent Total Time Spent: Total time spent today is 85 minutes in reviewing outside records, coordination of care, discussing with patient and other providers and her son Loyd ongoing evaluation management. Hospitalist- H&P: HPI History of Present Illness Date Seen: 11/27/24 Chief complaint: Diarrhea Narrative: Geeta Horner is a 84 year old female admitted to the hospital with profound weakness and inability to ambulate and diarrhea with bowel incontinence. Patient reports relatively longstanding problems with leg weakness. She was hospitalized here with that problem in August 2024. She indicates that this is been a longer standing problem even prior to that, possibly going back to a time when she had lower extremity vascular surgery at [facility] years ago. She notes however that is gotten much worse in the last few weeks. Starting , 4 days ago she developed diarrhea. This was nonbloody diarrhea. She had recurrent episodes of this. She was wearing depends but despite this had incontinence which soiled her carpeting at home. She tells me she has been able to eat and drink since then and does have an appetite. She does not have abdominal pain is not had any vomiting. She has had no fever. She is not eating or drinking much because her legs are too weak for her to get up from her recliner to get to the kitchen to get food and drink. Yesterday she said she only had a banana and some juice because she was too weak to get out of her chair. Her diarrhea is better today. Her last bowel movement was shortly after midnight. She is not aware of any exposures to anybody else with a diarrheal illness. She has not had any recent antibiotics. She does not have a history of diarrheal problems on a chronic basis. She does occasionally have constipation and she apparently does take MiraLax and senna. She was uncertain whether she was still taking any laxatives. She has longstanding history of vitamin B12 deficiency. She has had a macrocytic anemia and low vitamin B12 level going back to at least August of 2022. She was unaware of this diagnosis. She has also never taken vitamin B12 supplements that she recalls. Patient has some difficulty providing her medical history. She tells me she takes 8 medications in the morning and 3 in the afternoon. She is only able to recall 4 of her morning medicines. Review of Systems Narrative: Patient reports no concerns other than her diarrhea, incontinence, leg weakness. She reports otherwise she has been feeling well. No fever, respiratory illness, new neurologic problems other than her leg weakness. She was tried on pregabalin in August which she reports he tolerated very poorly and it made her legs weaker. Medical Decision Making Medical Decision Making Has patient completed a Health Care Directive: Yes [facility] Medical History (Updated 11/27/24 @ 12:54 by Sadiq Miles MD) Discharge planning issues ?Z75.8 - Other problems related to medical facilities and other health care (ICD-10) Cognitive impairment ?R41.89 - Other symptoms and signs involving cognitive functions and awareness (ICD-10) Rash ?R21 - Rash and other nonspecific skin eruption (ICD-10) Anemia of chronic renal failure, stage 3b ?N18.32 - Chronic kidney disease, stage 3b (ICD-10) ?D63.1 - Anemia in chronic kidney disease (ICD-10) Stage 3b chronic kidney disease ?N18.32 - Chronic kidney disease, stage 3b (ICD-10) Venous insufficiency (chronic) (peripheral) ?I87.2 - Venous insufficiency (chronic) (peripheral) (ICD-10) Neuropathy ?G62.9 - Polyneuropathy, unspecified (ICD-10) Health care directive on file ?Z78.9 - Other specified health status (ICD-10) UTI (urinary tract infection) ?N39.0 - Urinary tract infection, site not specified (ICD-10) Carotid stenosis ?I65.29 - Occlusion and stenosis of unspecified carotid artery (ICD-10) Macrocytosis ?D75.89 - Other specified diseases of blood and blood-forming organs (ICD-10) Edema ?R60.9 - Edema, unspecified (ICD-10) Unsteadiness ?R26.81 - Unsteadiness on feet (ICD-10) Gout ?M10.9 - Gout, unspecified (ICD-10) History of non-ST elevation myocardial infarction (NSTEMI) (02/23/17) ?I25.2 - Old myocardial infarction (ICD-10) History of right breast cancer (1984) ?Z85.3 - Personal history of malignant neoplasm of breast (ICD-10) Postmenopausal atrophic vaginitis ?N95.2 - Postmenopausal atrophic vaginitis (ICD-10) Diabetic neuropathy associated with type 2 diabetes mellitus ?E11.40 - Type 2 diabetes mellitus with diabetic neuropathy, unspecified (ICD-10) Leg swelling ?M79.89 - Other specified soft tissue disorders (ICD-10) Coronary artery disease ?I25.10 - Atherosclerotic heart disease of [place] coronary artery without angina pectoris (ICD-10) Peripheral vascular disease ?I73.9 - Peripheral vascular disease, unspecified (ICD-10) Diabetes mellitus type 2 in nonobese ?E11.9 - Type 2 diabetes mellitus without complications (ICD-10) Hypertension (11/21/08) ?I10 - Essential (primary) hypertension (ICD-10) Hyperlipidemia (11/21/08) ?E78.5 - Hyperlipidemia, unspecified (ICD-10) Degenerative joint disease (DJD) of lumbar spine ?M47.816 - Spondylosis without myelopathy or radiculopathy, lumbar region (ICD-10) Scoliosis (11/21/08) ?M41.9 - Scoliosis, unspecified (ICD-10) Surgical History History of right common carotid artery stent placement ?Z98.890 - Other specified postprocedural states (ICD-10) ?Z95.828 - Presence of other vascular implants and grafts (ICD-10) History of intravascular stent placement ?Z95.828 - Presence of other vascular implants and grafts (ICD-10) History of bladder surgery (02/24/21) ?Z98.890 - Other specified postprocedural states (ICD-10) History of hysterectomy for cancer (~1989) ?Z90.710 - Acquired absence of both cervix and uterus (ICD-10) 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) ?Z95.1 - Presence of aortocoronary bypass graft (ICD-10) History of right mastectomy (1984) ?Z90.11 - Acquired absence of right breast and nipple (ICD-10) Family History Sister Myocardial infarction, Onset Age: 70 Breast cancer Skin cancer High blood pressure Sister Stroke, Onset Age: 70 Breast cancer Son Colon cancer, Onset Age: 55 High blood pressure Brother Skin cancer High blood pressure Mother High cholesterol High blood pressure Father High blood pressure Social History (Updated 11/27/24 @ 12:44 by Sadiq Miles MD) Narrative: , retired [employer], lives in independent living at [address], she very much wants to continue living independently at her current location. She has 3 boys. Her son Loyd lives in [place] and she tells me he would be healthcare power of litigation attorney. Code status is DNR Nonsmoker, quit 2013 before then 25 pack years No alcohol use What is your current living situation?: I presently have a place to live Problems where you live: no known problems Problems where you live details: n/a In the past 12 months, utilities in danger of being shut off: no In past 12 months, lack of transportation kept you from medical appts, meetings, work, or getting things needed for daily living: no In the past 12 mos, have been you worried that your food would run out before you had money to buy more?: never true In the past 12 mos, the food you bought just didn't last and you didn't have money to buy more?: never true Highest level of school completed/degree received: GED or equivalent Smoking Status: Former smoker Do you use any of these nicotine containing products: None Second hand tobacco smoke exposure: No How often do you have a drink containing alcohol: never AUDIT-C Alcohol total score: 0 Non-prescribed substance use: denies use Caffeine: No How often does anyone, including family, friends and others, physically hurt you: never How often does anyone, including family, friends and others, insult or talk down to you: never How often does anyone, including family, friends and others, threaten you with harm: never How often does anyone, including family, friends and others, scream or curse at you: never service: No Meds Home Medications and Allergies Home Medications ?Medication ?Instructions ?Recorded ?Confirmed ?Type lovastatin 20 mg tablet 20 mg PO BID #180 tabs 02/23/24 09/27/24 Rx glipizide 5 mg tablet 5 mg PO BID DM #180 tabs 02/24/24 11/27/24 Rx metoprolol succinate 25 mg 50 mg (2 x 25 mg) PO DAILY 06/13/24 11/27/24 Rx tablet,extended release 24 hr Hypertension #180 tabs metformin 1,000 mg tablet 1,000 mg PO BID #180 tabs 06/21/24 11/27/24 Rx furosemide 20 mg tablet (Lasix) 20 mg PO QAM #30 tabs 08/02/24 11/27/24 Rx aspirin 325 mg tablet 325 mg PO Q6H PRN 08/20/24 09/27/24 History clopidogrel 75 mg tablet 75 mg PO DAILY 08/20/24 11/27/24 History sennosides 8.6 mg-docusate sodium 1 tab-cap PO DAILY PRN 08/20/24 11/27/24 History 50 mg tablet (Senna with Docusate Sodium) lisinopril 20 mg tablet 20 mg PO DAILY Hypertension 11/27/24 11/27/24 History Home Medication Comments: Patient does not recall her medications. She was only able to confirm for me that she takes lovastatin, glipizide, metformin, furosemide. Allergies Allergy/AdvReac Type Severity Reaction Status Date / Time pregabalin (From Lyrica) AdvReac Severe falls Verified 09/27/24 16:24 Exam Narrative: Exam Narrative: She is alert and appears in no distress. Her speech is normal. Speech is fluent. She does not recall significant portions of her medical history, particularly her medications. Head is without trauma. Eyes normal. No facial asymmetry. Oropharynx is normal. Neck is supple without mass or adenopathy. Respirations are clear to auscultation. Breathing is unlabored. Cardiovascular: S1, S2, 1 to 2/6 systolic ejection murmur heard across the precordium. Abdomen: Bowel sounds active. Abdomen is soft without tenderness or mass. External genitalia normal. Extremities with absent pedal pulses. Cool to touch. The skin of her feet feels thickened. She has relative stiffness in her feet and toes with decreased range of motion. She has loss of proprioception to position on her right foot great toe but less so on her left foot. Const: Vital Signs, click to edit/add: Vital Signs - 24 hr 11/27/24 05:40 11/27/24 06:04 11/27/24 06:50 Temperature 97.6 F Pulse Rate Pulse Rate [Pulse Oximeter] Pulse Rate [Right Pulse Oximeter] 72 Respiratory Rate 16 Blood Pressure 124/62 Blood Pressure [Le ft Arm] Blood Pressure [Le ft Upper Arm] 153/58 H Pulse Oximetry 99 99 Oxygen Delivery Il thod Room Air 11/27/24 06:56 11/27/24 07:01 11/27/24 07:17 Temperature Pulse Rate 61 62 62 Pulse Rate [Pulse Oximeter] Pulse Rate [Right Pulse Oximeter] Respiratory Rate Blood Pressure 167/64 H 176/64 H Blood Pressure [Le ft Arm] Blood Pressure [Le ft Upper Arm] Pulse Oximetry 99 97 96 Oxygen Delivery Me thod 11/27/24 07:32 11/27/24 08:15 11/27/24 08:30 Temperature Pulse Rate 74 79 73 Pulse Rate [Pulse Oximeter] Pulse Rate [Right Pulse Oximeter] Respiratory Rate Blood Pressure 176/71 H Blood Pressure [Le ft Arm] Blood Pressure [Le ft Upper Arm] Pulse Oximetry 99 99 100 Oxygen Delivery Me thod 11/27/24 09:12 Temperature 97.8 F Pulse Rate Pulse Rate [Pulse Oximeter] 80 Pulse Rate [Right Pulse Oximeter] Respiratory Rate 16 Blood Pressure Blood Pressure [Le ft Arm] 161/85 H Blood Pressure [Le ft Upper Arm] Pulse Oximetry 97 Oxygen Delivery Me thod Room Air Documenting provider has reviewed patient's vital signs: yes Hospitalist - H&P: Result Labs Labs: Short CBC 11/27/24 Range/Units 06:54 WBC 9.95 (4.50-11.00) K/uL Hgb 11.9 L (12.0-16.0) gm/dL Hct 35.8 (33.0-51.0) % Plt Count 239 (140-440) K/uL BMP 11/27/24 06:47 Sodium 133 L Potassium 4.4 Chloride 97 Carbon Dioxide 26 BUN 14 Creatinine 1.3 Glucose 50 L Calcium 10.1 Liver Function 11/27/24 Range/Units 06:47 Total Bilirubin 0.7 (0.1-1.5) mg/dL Direct Bilirubin 0.1 (0.0-0.5) mg/dL AST 43 H (12-35) U/L ALT 12 (4-35) U/L Alkaline Phosphatase 77 (40-150) U/L Albumin 4.6 (3.3-5.0) g/dL
--- NOTE | 2024-11-27 15:30 | PC.SOCIAL ---
Discharge planning: MAHENDRA received update from yeast supervisor that a MAARC report was done on patient by EMS and that APS worker Anel Tomas was assigned. MAHENDRA received notification from [facility] that patient's son called and would like to speak with MAHENDRA. MAHENDRA called patient's son Fernando who explained that they would like more home care/supportive services at home. Fernando states that he and his brothers have been talking and are all aware that patient can't continue at home alone without support. Fernando states he would like services set up so that this can be billed through Medicare. MAHENDRA explained that Medicare doesn't cover these services aside from some Home PT/OT limited RN and sometimes an aide. SW discussed private pay options, but son wants to wait to see what the orders will be. Fernando reports that he, his brothers, and patient all want her to return home. Fernando reports that he now has monthly cleaning services set up and that he is going to get the carpet cleaned at patient's apartment. Fernando explains that patient has been going to exercies at her apartment until recently. Fernando feels that there is an underlying GI issue. MAHENDRA informed provider of this. Fernando states that he is a RN and will be coming tonight and has off tomorrow to spend with patient. Fernando reports that he and his brothers are supportive and there to help as well as one of patient's granddaughters, but not the other. Fernando had no other information to share or questions at this time. MAHENDRA emailed Anel Tomas with APS letting her know this MAHENDRA is assigned to patient. MAHENDRA received call from Anel Tomas asking that SW provide patient with a MA-LTC packet. MAHENDRA arrived in patient's room and Anel Tomas was present stating that she will place a referral to the N with [facility] for an assessment and that MAHENDRA can send the completed MA packet to Anel and she will submit it. MAHENDRA provided packet to patient and assisted patient in completing it. SW to send Anel this when mode of sending is confirmed. Patient reports she is open to home PT if that is recommended. SW to follow-up with patient on 11/28.
--- NOTE | 2024-11-27 19:27 | PC.NURSE ---
End of Shift: Patient pleasant and cooperative. VSS, afebrile. No BM since coming up to the floor. Tolerating regular diet. SBA with walker and gait belt. Patient appears to be resting comfortably with call light within reach. ?
[2024-11-27] MEDS: ENOXAPARIN 40 MG/0.4 ML INJ SUBCUT (21:20)
[2024-11-27] MEDS: LOVASTATIN 20 MG TABLET 40 MG PO (21:20)
[2024-11-27] MEDS: SODIUM CHLORIDE 0.9 % (FLUSH) 10 ML SYRINGE 5 ML IVF (21:21)
[2024-11-27] MEDS: INSULIN ASPART 100 UNIT/ML SUBCUT (21:38)
[2024-11-28 02:42] VITALS: BP 156/60; PULSE 80; RESP 18; TEMP 36.8; O2SAT 96
[2024-11-28 06:57] LABS: Hematocrit 30.9 % (33.0-51.0); Hemoglobin* 10.2 gm/dL (12.0-16.0); Immature Granulocytes Abs Auto 0.01 K/uL (0.00-0.30); Immature Granulocytes Pct Auto 0.1 %; Mean Corpuscular HGB Conc 33 gm/dL (32-36); Mean Corpuscular Hemoglobin 33 pg (26-34); Mean Corpuscular Volume 100 fL (80-100); RDW Coefficient of Variation % 13.4 % (11.5-15.5); Red Blood Count 3.09 m/uL (4.00-5.20); White Blood Count* 7.46 K/uL (4.50-11.00)
[2024-11-28 06:59] LABS: Lymphocytes Absolute Auto 1.40 K/uL (0.90-2.90); Slide Review Reflex No
--- NOTE | 2024-11-28 07:04 | PC.NURSE ---
Staff checked BG at 0200 based on day trends, BG 38. [place] juice and yogurt supplied, recheck completed, BG 89. Grahm crackers given to maintain, recheck complete 45 min later, BG 115. Spot checked again around 0600, BG 65, juice and yogurt given, rechecked BG 125. Pt had no BM. Pt in bed, appears to be resting, call light within reach.
[2024-11-28 07:11] LABS: Chloride* 100 mmol/L (96-114); Potassium* 4.7 mmol/L (3.6-5.1); Sodium* 132 mmol/L (135-149)
[2024-11-28 07:14] LABS: Anion Gap 5 mEq/L (7-15); Blood Urea Nitrogen* 14 mg/dL (7-30); Calcium* 9.3 mg/dL (8.4-10.6); Carbon Dioxide* 27 mmol/L (20-32); Creatinine* 1.2 mg/dL (0.5-1.5); Est. Creatinine Clearance* 27.60; Estimated Glomerular Filt Rate 45 ml/min; Glucose* 80 mg/dL (60-115)
[2024-11-28 07:18] LABS: Hematocrit 30.9 % (33.0-51.0)
[2024-11-28 07:45] VITALS: BP 111/58; PULSE 77; RESP 18; TEMP 36.8; O2SAT 95
[2024-11-28] MEDS: METFORMIN 1,000 MG TABLET 1000 MG PO (07:55)
[2024-11-28] MEDS: METOPROLOL SUCCINATE (XL) 25 MG TAB 50 MG PO (09:03)
[2024-11-28] MEDS: CLOPIDOGREL 75 MG TABLET PO (09:03)
[2024-11-28] MEDS: SODIUM CHLORIDE 0.9 % (FLUSH) 10 ML SYRINGE 5 ML IVF (09:04)
[2024-11-28 11:26] VITALS: BP 159/59; PULSE 72; RESP 18; TEMP 36.7; O2SAT 96
--- NOTE | 2024-11-28 13:20 | PC.SOCIAL ---
Addendum entered and electronically signed by Keyanna Fraga LCSW 11/28/24 15:53: MAHENDRA called [facility] to determine if they can accept patient, however, they were still reviewing. MAHENDRA sent referral to [facility]. MAHENDRA received call from [facility] stating they are at capacity. Original Note: Discharge Planning: MAHENDRA called patient's son who states that he is open to any home care agencies, that they were able to clean patient's apartment, and that he will be able to pick his mom up when ready for discharge. MAHENDRA met with patient who states that overall she is doing well today and ready to go home. MAHENDRA discussed home care agencies and patient would like SW to try for [facility] first, followed by [facility], and then [facility] MAHENDRA sent fax to [facility]. MAHENDRA called Anel Tomas, [facility] APS worker, and updated with discharge plans for today. MAHENDRA explained she would update her once a home care agency was found. MAHENDRA confirmed Anel's email address and sent completed MA application to her. MAHENDRA to assist with other needs as they arise.
--- NOTE | 2024-11-28 14:48 | PC.NURSE ---
Discharge: Patient pleasant and cooperative, A&O. VSS, afebrile. Blood sugars stable this shift. Denies pain this shift. Tolerating regular diet. no BM this shift. IV removed with tip intact. Discharge instructions provided, all questions answered. Discharged to home via wheelchair.
--- NOTE | 2024-11-28 15:27 | P.DS_ITS ---
DS: Providers Provider Date Seen: 11/28/24 Date of admission: 11/27/24 08:44 Primary care physician: Amrik Mendiola MD Admitting Clinician: Malissa Justice MD Attending Physician on discharge: Malissa Justice MD Date of Discharge: 11/28/24 DS: Diagnosis Discharge Diagnosis (1) Diarrhea: Status: Acute Problem details: Initially had relatively severe diarrhea but this appears to be improving. No diarrhea since admission. Likely acute gastroenteritis now resolved. Patient was probably taking senna while she was having diarrhea. She did not know she was taking senna or what its purpose was. (2) B12 deficiency: Status: Acute Problem details: I suspect this is clinically serious with longstanding subtherapeutic vitamin B12 level since August of 2022, longstanding macrocytic anemia, cognitive impairment and peripheral neuropathy. Initiate parental replacement on this admission and weekly injections for the next 4 weeks minimum. Also start oral replacement. Anticipate possible improvement in neurologic symptoms and macrocytic anemia over the next couple months. Consider further outpatient evaluation for pernicious anemia and possible EGD depending on clinical course. (3) Hypoglycemia associated with diabetes: Status: Acute Problem details: Patient had a hemoglobin A1c of 5.5 in May. Since then she has lost weight and reports decreasing appetite. In the hospital she was hypoglycemic with a blood sugar in the 30s. She is unaware of hypoglycemia at home but she does not do any blood sugar monitoring. I have stopped her glipizide and continued her metformin as an outpatient. May possibly taper off metformin depending on her renal function and clinical course and blood sugar control (4) Weight loss, non-intentional: Status: Acute Problem details: She has lost 4.5 kg in the last 2 months. Cause for this is unclear. She has been eating very well in the hospital. (5) Dehydration: Status: Acute Problem details: Clinically is mildly dehydrated on admission. Tolerating oral food and fluid very well in the hospital (6) Urinary and bowel incontinence: Status: Acute Problem details: Likely due to combination of factors, primarily current diarrhea and immobility. (7) Cognitive impairment: Status: Acute Problem details: [place] score in August 2024 was 20/30. [place] score 11/28/2024 is 16/30. Discussed with patient and family that this may be partly related to vitamin B12 deficiency and may have some improvement over the next month or 2 but patient is likely to need more supervision, especially of medications (8) Discharge planning issues: Status: Acute Problem details: Concern over patient's ability to live independently due to leg weakness and falls and cognitive impairment. Ongoing assessment. Patient or family are adamant they would like her to return to her independent living. I informed the family that assistance with medication setup and monitoring is likely a necessary task for them to perform weekly. Initially home health nursing can manage this. (9) Anemia: Status: Acute Problem details: Longstanding stable anemia. This is macrocytic anemia. I favor vitamin B12 deficiency as the cause for this. Folate level pending. 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 Weakness is much improved during hospital stay (12) Stage 3b chronic kidney disease: Status: Acute Problem details: -baseline CrCl 32, Cr 1.1 DS: Summary Hospital Course Hospital Course: 84-year-old female admitted to the hospital with profound weakness associated with acute diarrheal illness for few days prior to admission. Weakness is much better and diarrhea has resolved during her hospital stay. No specific therapy for the diarrheal illness and no further testing was done as she did not have any stools during her hospital stay. Further evaluation showed that she has moderate cognitive impairment with a [place] of 16/30. She has ongoing vitamin B12 deficiency which has not been replaced since 1st diagnosed in August of 2022. This could be causing neurologic problems including her cognitive impairment her ne uropathy and impaired balance and gait. Likely also causing macrocytic anemia. She was found to be hypoglycemic with a history of a normal hemoglobin A1c earlier this year and now ongoing weight loss. During her hospital stay she was eating and drinking very well. Glipizide was discontinued due to low blood sugars. Patient does not do home blood sugar monitoring. Will be discharged on metformin alone. Time Spent with Patient Time attestation: Total time spent providing and/or coordinating discharge services: 50 minutes Time spent: Greater than 30 minutes Exam Narrative: Exam Narrative: She is alert and appears in no distress. Speech is normal. She is oriented to her circumstances. Breathing is unlabored. She is observed to stand and walk with a walker fairly well. Const: Vital Signs, click to edit/add: Vital Signs - 24 hr 11/27/24 16:00 11/27/24 16:00 11/27/24 20:02 Temperature 98.2 F 97.6 F Pulse Rate [Pulse Oximeter] 65 65 72 Respiratory Rate 18 18 16 Blood Pressure [Le ft Arm] 122/58 L 131/53 L Pulse Oximetry 97 97 Oxygen Delivery Me thod Room Air Room Air 11/27/24 23:00 11/27/24 23:35 11/28/24 02:42 Temperature 97.6 F 98.2 F Pulse Rate [Pulse Oximeter] 72 72 80 Respiratory Rate 18 18 18 Blood Pressure [Le ft Arm] 142/56 H 156/60 H Pulse Oximetry 98 96 Oxygen Delivery Me thod Room Air Room Air 11/28/24 07:45 11/28/24 07:45 11/28/24 11:26 Temperature 98.3 F 98.0 F Pulse Rate [Pulse Oximeter] 77 77 72 Respiratory Rate 18 18 18 Blood Pressure [Le ft Arm] 111/58 L 159/59 H Pulse Oximetry 95 96 Oxygen Delivery Me thod Room Air Room Air Documenting provider has reviewed patient's vital signs: yes DS: Data Data Completed and Pending Labs on day of discharge: Labs from last 24 hours 11/28/24 11/28/24 06:36 06:36 WBC 7.46 RBC 3.09 L Hgb 10.2 L Hct 30.9 L 30.9 L MCV 100 MCH 33 MCHC 33 RDW Coeff of [place] 13.4 Plt Count 202 Neut % (Auto) 65.5 Lymph % (Auto) 18.2 L Preston % (Auto) 14.2 H Eos % (Auto) 1.7 Baso % (Auto) 0.3 Neut # (Auto) 4.88 Lymph # (Auto) 1.40 Preston # (Auto) 1.10 H Eos # (Auto) 0.13 Baso # (Auto) 0.02 Abs Immat Gran (auto) 0.01 Imm/Tot Granulo (auto) 0.1 Sodium 132 L Potassium 4.7 Chloride 100 Carbon Dioxide 27 Anion Gap 5 L BUN 14 Creatinine 1.2 Estimated Creat Clear 27.60 Estimated GFR 45 Glucose 80 Calcium 9.3 RBC Folate Request Pending RBC Fol Dina for Serum Pending Discharge Plan Discharge Disposition: Home, Self-Care Date of Admission: 11/27/24 08:44 Attending Provider on Discharge: Sadiq Miles Primary Care Provider: Amrik Mendiola Condition: Stable Anticipated Discharge Date/Time: 11/28/24 13:00 Discharge Medications: New cyanocobalamin (vitamin B-12) 3,000 mcg capsule 3,000 mcg PO DAILY Qty: 90 3RF cyanocobalamin (vitamin B-12) 1,000 mcg/mL solution 1,000 mcg IM .weekly 7 Days Qty: 4 0RF Continued lisinopril 20 mg tablet 20 mg PO DAILY clopidogrel 75 mg tablet 75 mg PO DAILY sennosides-docusate sodium [Senna with Docusate Sodium] 8.6-50 mg tablet 1 tab-cap PO DAILY PRN metoprolol succinate 25 mg tablet extended release 24 hr 50 mg PO DAILY Qty: 180 1RF metformin 1,000 mg tablet 1,000 mg PO BID Qty: 180 1RF furosemide [Lasix] 20 mg tablet 20 mg PO QAM Qty: 30 3RF Changed lovastatin 20 mg tablet 40 mg PO DAILY Qty: 180 3RF Discontinued aspirin 325 mg tablet 325 mg PO Q6H PRN glipizide 5 mg tablet 5 mg PO BID Qty: 180 3RF Discharge Orders: Discharge Order (Routine); Ordered 11/28/24 Ordered By: Sadiq Miles Patient Education: Vitamin B-12 (By mouth), Vitamin B12 Deficiency (GEN) Activity Level: Activity as Tolerated and Use Walker Discharge Diet: Heart Healthy (2 gm sodium, low fat) Follow Up Appointments: Irene Mcconnell MD [Staff Physician, Internal Medicine] - 12/05/24 1:45 pm Referral Note: [facility] for recheck of B12 deficiency, neurologic symptoms, weakness, macrocytic anemia and ongoing treatment of B12 deficiency. Home health nurse to administer weekly injections of Vit B12 1000 mcg IM for at least 4 weeks. Check CBC and basic metabolic panel in 1 week Amrik Mendiola MD [Primary Care Provider, Internal Medicine] Referral Note: Forms: [facility] Info Instructions
[2024-11-29 12:44] LABS: Folate, Serum 8.5 ng/mL (>=5.9)
--- NOTE | 2024-11-29 13:07 | PC.SOCIAL ---
Discharge planning: SW received vm from [facility] that they can open with patient for PT and OT, but would need to wait on nursing and add it later as they don't have nurses. SW asked that she be able to call back in an hour to see if she can find an agency that does all of the services right away. MAHENDRA sent referral to Home Health Care. SW called Home Health Care who states that they can accept patient. SW called [facility] and informed that a different agency has been found. SW called patient and informed of the agency that will be calling. Patient didn't have a pen or paper to write on. MAHENDRA agreed to call patient's son Loyd and inform him of these services so he can provide the information to her. MAHENDRA also explained that the information is on a sheet that SW provided with home care agencies at the hospital, if patient is able to remember the name. MAHENDRA called patient's son and informed of Home Health Care and number. Son didn't have paper so SW called back and left a voicemail. MAHENDRA secure emailed Anel Tomas, [facility] APS worker, with the above information.
[2024-11-30 01:08] LABS: Folate, RBC 301 ng/mL (>=366)
== END 2024-11-28 14:30 | disposition home or self-care (01) ==
LOC: ED 08:10 → MEDSURG 08:45
PROVIDERS: Family Medicine; Admitting Provider Family Medicine; Emergency Provider Family Medicine; PCP Internal Medicine; Visit Provider Family Medicine
DX: R19.7 Diarrhea, unspecified (principal); D51.9 Vitamin B12 deficiency anemia, unspecified; E11.649 Type 2 diabetes mellitus with hypoglycemia without coma; R63.4 Abnormal weight loss; R32 Unspecified urinary incontinence; D64.9 Anemia, unspecified; R53.1 Weakness; G62.9 Polyneuropathy, unspecified; N18.30 Chronic kidney disease, stage 3 unspecified
CPT/HCPCS: 36415; 51798; 80048; 80076; 82607; 82746; 82747; 82962; 83690; 83735; 85025; 86140; 87045; 87046; 87427; 87493; 87631; 94761; 96372; 97116; 97161; 97165; 97530; 97535; 99284; 99285; A9270; G0378; J1650; J3420; J7030

== ENCOUNTER 2025-03-21 15:19 | Outpatient (CLI) | payer MEDICARE, BC, SELFPAY | END 2025-03-21 15:20 | disposition home or self-care (01) | PROVIDERS: PCP Internal Medicine; Visit Provider Internal Medicine | DX: R19.7 Diarrhea, unspecified (principal); D64.9 Anemia, unspecified | CPT/HCPCS: 80053; 82607; 82746; 83540; 83550 ==

== ENCOUNTER 2025-03-22 09:00 | Outpatient (CLI) | payer MEDICARE, BC, SELFPAY | END 2025-03-22 09:01 | disposition home or self-care (01) | LOC: NFLDREF 03-28 01:45 | PROVIDERS: PCP Internal Medicine; Referring Provider Internal Medicine; Visit Provider Internal Medicine | DX: R19.7 Diarrhea, unspecified (principal) | CPT/HCPCS: 87086 ==

== ENCOUNTER 2025-03-31 08:05 | Emergency (ER) | payer MEDICARE, BC, SELFPAY ==
--- OUTSIDE RECORDS SUMMARY | 2024-12-25 05:00 | XMS_ITS ---
Author Organization [facility] Address [address] [place] [address] Care Team Providers Care Carpenter Helper Name Role Phone Amrik Mendiola Primary Care Provider Sarah Torres Unavailable [phone] Donal Haddad Unavailable [phone] REASON FOR VISIT Per TE from 10/31/24: Dr Haddad will also perform this patient's pelvic exam on the same day of Urodynamics, either before or after in order to limit the amount of times she needs to undress. Please let him know when she is here for her UDS test. Encounters Encounter Location Date Provider Diagnosis [address] [address] 12/25/2024 Donal Haddad Plan Of Treatment No Information Progress Notes * Geeta HORNEROB:[birth year] (85 yo F)Acc No.[id number]:12/25/2024 Patient: Jose De Jesus Geeta WATERS Provider: Teo HADDAD MD :1940 A ge:84 Y S ex:Female Date:12/25/2024 Address:[address], [address], [place], [place] Pcp:Amrik Mendiola Subjective: * Chief Complaints: * 1 . Per TE from 10/31/24: Dr Haddad will also perform this patient's pelvic exam on the same day of Urodynamics, either before or after in order to limit the amount of times she needs to undress. Please let him know when she is here for her UDS test.. * Medical History: Objective: * Vitals: Assessment: Plan: * Treatment: * Images: Billing Information: * Visit Code: * Procedure Codes: * Electronic signature of Jessica in MD Lance on 03/31/2025 at 08:08 AM DISK RECORDIST Sign off status: Pending * Provider: Teo HADDAD MD Date: 0 12/25/2024 Generated for Justin watkins/Ashley/Kaminismitting on: 05/31/2024 08:08 AM DISK RECORDIST
--- OUTSIDE RECORDS SUMMARY | 2024-12-25 06:15 | XMS_ITS ---
Author Organization [facility] Address [address] [place] [address] Care Team Providers Care Technical Sales Director Name Role Phone Amrik Mendiola Primary Care Provider Sarah Torres Unavailable [phone] Donal Haddad Unavailable [phone] Encounters Encounter Location Date Provider Diagnosis [place] [address] [place] [address] 12/25/2024 Donal Haddad Plan Of Treatment No Information Progress Notes * HORNER, Geeta GuzmananDOB:[birth year] (85 yo F)Acc No.[id number]:12/25/2024 Patient: Jose De Jesus WATERS Geeta Ruiz Provider: Teo HADDAD MD :1940 A ge:84 Y S ex:Female Date:12/25/2024 Address:[facility] [address], [address] [place], [place] [id number] Pcp:Amrik Mendiola Subjective: * Chief Complaints: * * Medical History: Objective: * Vitals: Assessment: Plan: * Treatment: * Images: Billing Information: * Visit Code: * Procedure Codes: * Electronic signature of Jessica Haddad MD on 03/31/2025 at 08:07 AM CROP PRODUCTION ADVISOR Sign off status: Pending * Provider: Teo HADDAD MD Date: 0 12/25/2024 Generated for Printi ng/Faxing/eTransmitting on: 1 05/31/2024 08:07 AM CROP PRODUCTION ADVISOR
--- OUTSIDE RECORDS SUMMARY | 2024-12-25 08:15 | XMS_ITS ---
Author Organization [facility] Address [address] [place] [address] Care Team Providers Care Making Machine Catcher Name Role Phone Amrik Mendiola Primary Care Provider Sarah Torres Unavailable [phone] Donal Haddad Unavailable [phone] REASON FOR VISIT Bladder Sling Encounters Encounter Location Date Provider Diagnosis [facility] [place] [address] [place] [address] 12/25/2024 Donal Haddad Plan Of Treatment No Information Progress Notes * Geeta HORNERCecilyOB:[birth year] (85 yo F)Acc No.[id number]:12/25/2024 Patient: Geeta BLOOD Provider: Teo HADDAD MD :1940 A ge:84 Y S ex:Female Date:12/25/2024 Address:[facility] [address], [address] [place], [place] [id number] Pcp:Amrik Mendiola Subjective: * Chief Complaints: * 1 . Bladder Sling. * Medical History: Objective: * Vitals: Assessment: Plan: * Treatment: * Images: Billing Information: * Visit Code: * Procedure Codes: * Electronic signature of Jessica Haddad MD on 03/31/2025 at 08:07 AM WELDING MACHINE SETTER Sign off status: Pending * Provider: Teo HADDAD MD Date: 0 12/25/2024 Generated for Sindyi june/Ashley/eTransmitting on: 05/31/2024 08:07 AM WELDING MACHINE SETTER
--- OUTSIDE RECORDS SUMMARY | 2025-03-31 08:07 | XMS_ITS | Clinical Summary ---
Author Organization [facility] Address [address] [place] [address] Care Team Providers Care Cost And Risk Analysis Manager Name Role Phone Genevieve Ford MD Primary [...] unspecified vessel or lesion type, unspecified whether [place] or transplanted heart Take 1 tablet by [...] Each 3 12/30/19 22 Active Dexcom G6 Farmworker Machine for continuous blood glucose monitor (CGM)Indications:T ype 2 diabetes mellitus without complication, without long-term current use of insulin (HC) To be used to read blood sugars follow key maker directions. 1 Each 12/30/19 22 Active torsemide [...] Overview: Added automatically from request for surgery [id number] Edema of lower extremity 03/11/2018 Arteriosclerosis of [...] on file Legal Sex Female 5:48 AM MANAGER OF WAREHOUSE Gender Identity Not on file Sexual Orientation [...] Comments Blood Pressure 147/73 07/03/2022 1:02 PM MANAGER OF WAREHOUSE Pulse 71 07/03/2022 1:02 PM MANAGER OF WAREHOUSE Temperature 37.1 C (98.7 F) 12/27/2017 7:50 AM CDT Respiratory Rate - - Oxygen Saturation 99% 07/03/2022 1:02 PM MANAGER OF WAREHOUSE Inhaled Oxygen Concentration - - Weight 68.7 kg (151 lb 6.4 oz) 07/03/2022 1:02 P M MANAGER OF WAREHOUSE Height 156.9 cm (5' 1.77) 07/03/2022 1:02 PM CS T Body Mass Index 27.9 07/03/2022 1:02 PM MANAGER OF WAREHOUSE Plan of Treatment Health Maintenance Due Date [...] Medicare Wellness for age 65+ 07/04/2023 07/03/2022 Influenza Vaccine (#1) 2025 , 01/19/2020, 02/22/2019, Additional history exists DEXA/DXA scan for age 65+ Completed 06/16/2011 Zoster (shingles) series for age 50+ Completed 06/20/2022, 03/04/2021, 03/14/2016 Hepatitis B series for 19+ Aged Out N o longer eligible based on patient's age to complete this topic Insurance MEDICARE PART B HB ONLY MEDICARE PART A HB ONLY BLUE [place] BLUE MR PB ONLY Care Teams Cost And Risk Analysis Manager Relationship Specialty Start Date End Date Genevieve Ford MD [address] [place] [address] PCP - General Family Practice 10/13/23
--- OUTSIDE RECORDS SUMMARY | 2025-03-31 08:08 | XMS_ITS | Patient Health Record ---
Author Organization [facility] Address [address] [place] [address] Care Team Providers Care Formula Room Worker Name Role Phone Amrik Mendiola Primary Care Provider Sarah Torres Unavailable [phone] Donal Lucas Unavailable [phone] Sarah Langley Unavailable [phone] Allergies No Known Allergies Reason For Referral Reason 1.20.25 UTI Pt wcb to sched Diagnosis 1 Frequent UTI (N39.0) Referral Organization [facility] Referring Provider First Name Amrik Referring Provider Last Name Marlena Referred Organization [facility] Referred Provider Sarah Parks Referred Address [address] [place], [place],[address], Referred Provider Specialty Physician As sistant Referral Priority Routine Medications Medication SIG (Take, Route, Frequency, Duration) Notes Start Date End Date Status metFORMIN HCl 1000 MG 1 tablet with a me al Oral Once a day; Duration: 90 days Active Lisinopril 20 MG 1 tablet Oral Once a day; Duration: 90 days Active Metoprolol Succinate ER 25 MG Oral; Duration: 90 Days Acti ve glipiZIDE 5 MG 1 tablet 30 minutes before breakfast Oral twice a day; Duration: 90 days Active Furosemide 20 MG 1 tablet Oral Once a day; Duration: 30 days Active Clopidogrel Bisulfate 75 MG 1 tablet Ora l Once a day; Duration: 90 days Active Lovastatin 20 MG 1 tablet with the ev ening meal Oral twice a day; Duration: 90 days Active Social History Tobacco Use: Social History Observation Description Date Details (start date - stop date) Never Smoker NA - NA Tobacco Control (Standard) Question Answer Notes Tobacco use: Nonsmoker Problems Problem Type SNOMED Code ICD Code Onset Dates Problem Status W/U Status Risk Notes Problem Information temporarily unavailable Urge incontinence (N39.41) Active confirmed Vital Signs Blood pressure diastolic 52 mm Hg 10/31/2024 Height 59.75 in 10/31/2024 Blood pressure systolic 120 mm Hg 10/31/2024 Weight 142.4 lbs 10/31/2024 BMI 28.04 kg/m2 10/31/2024 Encounters Encounter Location Date Provider Diagnosis [facility] [address] [place] [address] 10/31/2024 Donaldequan Monsalveford Urge incontinence N39.41 [facility] [address] [place] [address] 10/31[facility]20[facility] [address] [place] [address] [address] [place], [place] [phone] 05/25/2024 Sarah Tank [facility] [address] [place] [address] 11/06/2024 Donaldequan Monsalveford Assessments Encounter Date Diagnosis (ICD Code) Assessment [...] the information in the transcribed note. A infection prevention practitioner was present. Authenticated by Dr. Lucas. Plan Of Treatment No Information Insurance Providers Payer Name Payer Address Payer Phone Subscriber Number Group Number Insured Name Patient Relationship to Insured Coverage Start Date Coverage End Date BC[employer] - (Client Bill) [address] [place] [id number] Geeta Horner Self - patient is the insured Medicare (Ins. Bill) [address] [place], [place] [id number] Geeta Horner Self - patient is the insured 5 Medical (General) History Medical History History ICD Code Diabetes Arthritis Bladder infections breast cancer Surgical History Surgery Date(Month/Year) right mastectomy Legs, Veins
[2025-03-31 08:30] VITALS: BP 200/83; PULSE 84; RESP 18; TEMP 36.4; O2SAT 97; BMI 22.3
--- NOTE | 2025-03-31 09:10 | ED_ITS ---
HPI - General Adult General Date Seen: 03/31/25 Chief complaint: Constipation Stated complaint: constipation, bleeding Time Seen by Provider: 03/31/25 09:10 History of Present Illness HPI narrative: 85-year-old female with a past medical history of type 2 diabetes, mild cognitive impairment, coronary artery disease, hypertension, hyperlipidemia, carotid stenosis, gout, presents to the ER with concern for constipation and rectal bleeding. According to the nurses who triaged her she had been having some diarrhea a few weeks ago so took loperamide to deal with that. She then started to develop the opposite problem, with constipation so discontinue loperamide. She tried to rectally disimpact herself this morning and got some blood. She has been having inability to pass a bowel movement for few days. She tried some old leftover tubes with water, but was unsuccessful in resolving her constipation. She has this morning she was trying directly distant back when she started noticing some blood on her finger and toilet paper. She is having rectal pain is concerned that she might have injured a hemorrhoid. She is not having diffuse pain. No anterior abdominal pain. No fever. No vomiting. Urination has been normal other than this morning she is having so much rectal pressure she does think she can not completely empty her bladder. Related Data Home Medications ?Medication ?Instructions ?Recorded ?Confirmed lisinopril 20 mg tablet 20 mg PO DAILY Hypertension 11/27/24 03/31/25 lovastatin 20 mg tablet 20 mg PO DAILY 01/03/2503/04 Previous Rx's ?Medication ?Instructions ?Recorded cyanocobalamin (vitamin B-12) 1,000 mcg IM .weekly 1 w [place] #4 mL 11/28/24 1,000 mcg/mL injection solution cyanocobalamin (vitamin B-12) 3,000 mcg PO DAILY #90 c aps 11/28/24 3,000 mcg capsule furosemide 20 mg tablet (Lasix) 20 mg PO QAM #30 tabs 12/06/24 metformin 1,000 mg tablet 1,000 mg PO BID #180 tabs metoprolol succinate 25 mg 50 mg (2 x 25 mg) PO DAILY 01/17/25 tablet,extended release 24 hr Hypertension #180 tabs clopidogrel 75 mg tablet 75 mg PO DAILY #30 tabs 02/01 01/25 loperamide 2 mg capsule 2 mg PO TID #30 caps 5 polyethylene glycol 3350 17 17 g PO BID PRN constipati on #238 03/31/25 gram/dose oral powder (Miralax) grams Allergies Allergy/AdvReac Type Severity Reaction Status Date / Time pregabalin (From Lyrica) AdvReac Severe falls Verified 03/21/25 15:01 [facility] Medical History (Updated 03/31/25 @ 11:00 by Brady Guzman MD) Anemia ?D64.9 - Anemia, unspecified (ICD-10) Diarrhea ?R19.7 - Diarrhea, unspecified (ICD-10) History of non-ST elevation myocardial infarction (NSTEMI) (02/23/17) ?I25.2 - Old myocardial infarction (ICD-10) History of right breast cancer (1984) ?Z85.3 - Personal history of malignant neoplasm of breast (ICD-10) Surgical History (Updated 12/05/24 @ 08:12 by Irene Mcconnell MD) History of right common carotid artery stent placement ?Z98.890 - Other specified postprocedural states (ICD-10) ?Z95.828 - Presence of other vascular implants and grafts (ICD-10) History of intravascular stent placement ?Z95.828 - Presence of other vascular implants and grafts (ICD-10) History of bladder surgery (02/24/21) ?Z98.890 - Other specified postprocedural states (ICD-10) History of hysterectomy for cancer (~1989) ?Z90.710 - Acquired absence of both cervix and uterus (ICD-10) 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) ?Z95.1 - Presence of aortocoronary bypass graft (ICD-10) History of right mastectomy (1984) ?Z90.11 - Acquired absence of right breast and nipple (ICD-10) Family History Sister Myocardial infarction, Onset Age: 70 Breast cancer Skin cancer High blood pressure Sister Stroke, Onset Age: 70 Breast cancer Son Colon cancer, Onset Age: 55 High blood pressure Brother Skin cancer High blood pressure Mother High cholesterol High blood pressure Father High blood pressure Social History (Updated 11/27/24 @ 12:44 by Sadiq Miles MD) Narrative: , retired [employer], lives in independent living at [address], she very much wants to continue living independently at her current location. She has 3 boys. Her son Loyd lives in [place] and she tells me he would be healthcare power of attorney recruiter. Code status is DNR Nonsmoker, quit 2013 before then 25 pack years No alcohol use What is your current living situation?: I presently have a place to live Problems where you live: no known problems Problems where you live details: n/a In the past 12 months, utilities in danger of being shut off: no In past 12 months, lack of transportation kept you from medical appts, meetings, work, or getting things needed for daily living: no In the past 12 mos, have been you worried that your food would run out before you had money to buy more?: never true In the past 12 mos, the food you bought just didn't last and you didn't have money to buy more?: never true Highest level of school completed/degree received: GED or equivalent Smoking Status: Former smoker Do you use any of these nicotine containing products: None Second hand tobacco smoke exposure: No How often do you have a drink containing alcohol: never AUDIT-C Alcohol total score: 0 Non-prescribed substance use: denies use Caffeine: No How often does anyone, including family, friends and others, physically hurt you : never How often does anyone, including family, friends and others, insult or talk down to you: never How often does anyone, including family, friends and others, threaten you with harm: never How often does anyone, including family, friends and others, scream or curse at you: never service: No Exam Narrative: Exam Narrative: Constitutional: Appears well-developed and well-nourished. Alert. Conversant. Non toxic. HENT: Head: Atraumatic. Nose: Nose normal. Mouth/Throat: Oral mucosa is clear and moist. no trismus. Pharynx normal. Tonsils symmetric. No tonsillar enlargement, erythema, or exudate. Eyes: Conjunctivae normal. EOM normal. Pupils equal, round, and reactive to light. No scleral icterus. Neck: Normal range of motion. Neck supple. No tracheal deviation present. Cardiovascular: Normal rate, regular rhythm. No gallop. No friction rub. No murmur heard. Symmetric radial artery pulses Pulmonary/Chest: Effort normal. No stridor. No respiratory distress. No wheezes. No rales. No rhonchi . No tenderness. Abdominal: Soft. Bowel sounds normal. No distension. No mass. No tenderness. No rebound. No guarding. Rectal: Performed with female [employer] consultant. She does have almost circumferential external hemorrhoids. There does appear to be a excoriated and recently bleeding hemorrhoid near the anterior midline. I do not see any thrombosis. No sign of rectal fissure. Normal rectal tone. There is a large amount of firm stool high in the rectal vault but it is too high for me to completely reach and polite with my index finger. I was able to break it up a little bit. Musculoskeletal: RUE: Normal range of motion. No tenderness. No deformity LUE: Normal range of motion. No tenderness. No deformity RLE: Normal range of motion. No edema. No tenderness. No deformity LLE: Normal range of motion. No edema. No tenderness. No deformity Neurological: Alert and oriented to person, place, and time. Normal strength. CN II-VII intact. No sensory deficit. GCS eye subscore is 4. GCS verbal subscore is 5. GCS motor subscore is 6. Normal coordination Skin: Skin is warm and dry. No rash noted. No pallor. Normal capillary refill. Psychiatric: Normal mood. Normal affect. Const: Vital Signs, click to edit/add: Vital Signs - 24 hr 03/31/25 08:30 03/31/25 11:20 Temperature 97.5 F L Pulse Rate [Pulse Oximeter] 84 90 Respiratory Rate 18 16 Blood Pressure [Ri ght Upper Arm] 200/83 H 176/84 H Pulse Oximetry 97 99 Oxygen Delivery Me thod Room Air Room Air Course Course ED Course: Recheck-after enema patient had large volume stool. Recheck she had a little bit more stool and is feeling much better. She has been urinating normally. Rectal pressure and pain is resolved. As long as she is sitting still she is not having any pain from her hemorrhoids. She is very pleased her amount of stool. Vital Signs Vital signs: Initial Vital Signs Temperature 97.5 F L 03/31/25 08:30 Temperature Source Temporal Artery Scan 03/31/25 08:30 Pulse Rate 84 03/31/25 08:30 Respiratory Rate 18 03/31/25 08:30 Blood Pressure 200/83 H 03/31/25 08:30 Blood Pressure Mean 122 H 03/31/25 08:30 Pulse Oximetry 97 03/31/25 08:30 Oxygen Delivery Method Room Air 03/31/25 08:30 Vital Signs Temperature 97.5 F L 03/31/25 08:30 Pulse Rate 84 03/31/25 08:30 Respiratory Rate 18 03/31/25 08:30 Blood Pressure 200/83 H 03/31/25 08:30 Pulse Oximetry 97 03/31/25 08:30 Oxygen Delivery Method Room Air 03/31/25 08:30 Temperature 97.5 F L 03/31/25 08:30 Pulse Rate 90 03/31/25 11:20 Respiratory Rate 16 03/31/25 11:20 Blood Pressure 176/84 H 03/31/25 11:20 Pulse Oximetry 99 03/31/25 11:20 Oxygen Delivery Method Room Air 03/31/25 11:20 Medical Decision Making MDM Narrative Medical decision making narrative: Presented to the Emergency Department with constipation and rectal pressure, as well as small volume bright red blood per rectum that began this morning after she injured hemorrhoid well trying to rectally disimpact herself. In terms of her rectal bleeding and her clinical exam and history are consistent with a excoriated external hemorrhoid that is been recently bleeding. No active bleeding here in the ER. Although she is on clopidogrel, at this point I do not think she needs hemoglobin monitoring based on the small volume of blood she is describing as well as the identified source of the blood. She is not having any abdominal pain and is not having any symptoms of bowel obstruction. On clinical exam she did have a large amount of stool in the rectum. At this point I do not think she needs further workup with labs, CT imaging or surgical consult. We did perform a attempted digital disimpaction followed by enemas here in the ER and she had large results and subsequently feeling better. On recheck and re-examined she is nontender on her abdomen and feeling better. She is comfortable discharging home To manage her constipation at home would recommend she start MiraLax 1 dose daily or b.i.d. p.r.n.. She can increase or decrease the frequency of her MiraLax based on the consistency and frequency of her stools. She will cut back is having loose stools or diarrhea and increase the frequency if she is having constipation. Would recommend close outpatient follow-up with her PCP for recheck. On my review of her medication list I do not see any clear medications that would cause constipation/anticholinergic syndrome. The patient also understands that if they worsen, they should return to the ER right away. I discussed the uncertainty about the diagnosis and answered the patient's questions. Abdominal pain return precautions discussed. Discharge Plan Discharge Clinical Impression: Constipation, Bleeding external hemorrhoids Patient Disposition: Home, Self-Care Condition: Stable Instructions: Constipation (DC), Hemorrhoids (ED) Additional Instructions: We are very pleased that we were able to help with your bowels this morning. To keep her bowels regular please start on MiraLax. Mix 1 capful in 8 oz of liquid once or twice daily as needed to help keep stool soft (consistency of pudding) and regular with 1 bowel movement or so every day. If you are having loose stools or diarrhea, please decrease the frequency of MiraLax or skip a day. Please recheck with your regular doctor within 4-5 days to make sure bowel movements are regular. If you have problems such as worsening bleeding, increasing pain your rectum, abdominal pain, fever, or any other concerns, please return to the ER right away to be rechecked. Prescriptions: New polyethylene glycol 3350 [Miralax] 17 gram/dose powder 17 g PO BID PRN (Reason: constipation) Qty: 238 0RF No Action lovastatin 20 mg tablet 20 mg PO DAILY cyanocobalamin (vitamin B-12) 1,000 mcg/mL solution 1,000 mcg IM ONCE Qty: 1 0RF clopidogrel 75 mg tablet 75 mg PO DAILY Qty: 30 0RF loperamide 2 mg capsule 2 mg PO TID Qty: 30 0RF lisinopril 20 mg tablet 20 mg PO DAILY cyanocobalamin (vitamin B-12) 3,000 mcg capsule 3,000 mcg PO DAILY Qty: 90 3RF cyanocobalamin (vitamin B-12) 1,000 mcg/mL solution 1,000 mcg IM .weekly 7 Days Qty: 4 0RF furosemide [Lasix] 20 mg tablet 20 mg PO QAM Qty: 30 3RF metformin 1,000 mg tablet 1,000 mg PO BID Qty: 180 1RF metoprolol succinate 25 mg tablet extended release 24 hr 50 mg PO DAILY Qty: 180 1RF Follow Up/Referrals: Amrik Mendiola MD [Primary Care Provider, Internal Medicine] Stand Alone Forms: [employer] Info Instructions
[2025-03-31 11:20] VITALS: BP 176/84; PULSE 90; RESP 16; O2SAT 99
== END 2025-03-31 11:21 | disposition home or self-care (01) ==
PROVIDERS: Emergency Provider Emergency Medicine; PCP Internal Medicine
DX: K59.00 Constipation, unspecified (principal); K64.4 Residual hemorrhoidal skin tags; Z66 Do not resuscitate
CPT/HCPCS: 99283